=== PATIENT | male | born 1955 | race Caucasian/White ===

== ENCOUNTER 2020-03-06 15:20 | Inpatient (IN) | payer MEDICARE ==
[~2020-03-06] VITALS: Ht 172.7 cm; Wt 58.0 kg
[2020-03-06] MEDS ORDERED: METOCLOPRAMIDE HCL 10 MG/2 ML VIAL. IVP ONE (17:00)
[2020-03-06] MEDS ORDERED: IV NORMAL SALINE 1000ML BAG 1,000 ML IV ONE (17:00)
[2020-03-06] MEDS ORDERED: KETOROLAC 30 MG/ML VIAL. IVP ONE (17:00)
[2020-03-06] MEDS ORDERED: METOCLOPRAMIDE HCL 10 MG/2 ML VIAL. ONE (17:05)
[2020-03-06] MEDS ORDERED: KETOROLAC 30 MG/ML VIAL. ONE (17:05)
[2020-03-06 17:07] LABS: BASO # 0.1 x10^3/uL (0.0-0.2); BASO % 1 % (0-3); EOS # 0.1 x10^3/uL (0.0-0.7); EOS % 1 % (0-3); HEMATOCRIT 44.9 % (39.0-53.0); HEMOGLOBIN 15.6 g/dL (13.0-17.5); LYMPH # 1.9 x10^3/uL (1.0-4.8); LYMPH % 17 % (24-48); MEAN CORPUSCULAR HEMOGLOBIN 29 pg (25-35); MEAN CORPUSCULAR HGB CONC 35 g/dL (31-37); MEAN CORPUSCULAR VOLUME 84 fL (79-100); MONO # 0.7 x10^3/uL (0.0-1.1); MONO % 6 % (0-9); NEUT # 8.2 x10^3/uL (1.8-7.7); NEUT % 75 % (31-73); PLATELET COUNT 369 x10^3/uL (140-400); RED BLOOD COUNT 5.33 x10^6/uL (4.30-5.70); RED CELL DISTRIBUTION WIDTH 14.9 % (11.5-14.5); WHITE BLOOD COUNT 10.9 x10^3/uL (4.0-11.0)
[2020-03-06 17:13] LABS: CALCIUM 10.1 mg/dL (8.5-10.1); CREATININE 1.1 mg/dL (0.7-1.3); GFR 67.8; POTASSIUM 3.7 mmol/L (3.5-5.1)
--- NOTE | 2020-03-06 17:16 | PHYS DOC ---
Past Medical History Past Medical History: Anxiety, Depression, Other Additional Past Medical Histor: PTSD, chronic back and leg pain, spinal stenosis (NAUN FAULKNER DO) Past Surgical History: Other Additional Past Surgical Histo: bone graft, leg surgery (NAUN FAULKNER DO) Smoking Status: Current Every Day Smoker Additional Information: 1 ppd Alcohol Use: None (NAUN FAULKNER DO) General Adult EDM: Chief Complaint: FLANK PAIN HPI: HPI: 64-year-old male past medical history significant for anxiety depression, recently discharged from [facility] (for anxiety/depression), presents to the ED with complaints of dysuria and right flank pain for the past 2 days. Patient states he has a history of frequent UTIs. Also reports has been out of his methadone for the past 3 days if he does not get anything for pain he'd "rather ." (NAUN FAULKNER DO) Review of Systems: Review of Systems: Constitutional: Denies fever or chills. [] Eyes: Denies change in visual acuity. [] HENT: Denies nasal congestion or sore throat. [] Respiratory: Denies cough or shortness of breath. [] Cardiovascular: Denies chest pain or edema. [] GI: Denies abdominal pain, nausea, vomiting, : Denies rash, hematuria Musculoskeletal: Denies joint pain. [] Integument: Denies rash. [] Neurologic: Denies headache, focal weakness or sensory changes. [] Endocrine: Denies polyuria or polydipsia. [] Lymphatic: Denies swollen glands. [] Psychiatric: Denies depression or anxiety. [] (NAUN FAULKNER DO) Heart Score: Risk Factors: Risk Factors: DM, Current or recent (<one month) smoker, HTN, HLP, family history of CAD, obesity. Risk Scores: Score 0 - 3: 2.5% MACE over next 6 weeks - Discharge Home Score 4 - 6: 20.3% MACE over next 6 weeks - Admit for Clinical Observation Score 7 - 10: 72.7% MACE over next 6 weeks - Early Invasive Strategies (NAUN FAULKNER DO) Current Medications: Current Medications Medications (Trade) Dose Ordered Sig/Arabella Start Time Stop Time Status Last Admin Dose Admin Ketorolac Tromethamine (Toradol 30mg Vial) 30 mg STK-MED ONCE 03/06/20 17:05 03/06/20 17:05 DC Metoclopramide HCl (Reglan Vial) 10 mg STK-MED ONCE 03/06/20 17:05 03/06/20 17:05 DC Sodium Chloride 1,000 ml @ 1,000 mls/hr 1X ONCE 03/06/20 17:00 03/06/20 17:59 03/06/20 17:07 1,000 MLS/HR (CHAUNCEYNAUN DO) Allergies: Allergies: Allergies Coded Allergies Type Severity Reaction Last Updated Verified Penicillins Allergy Severe "I think I " 03/06/20 Yes Sulfa (Sulfonamide Antibiotics) Allergy Severe "I think I " 03/06/20 Yes (NAUN FAULKNER DO) Physical Exam: PE: Constitutional: Unkempt appearance, pacing in ED room holding his right flank HENT: Normocephalic, atraumatic, bilateral external ears normal, Eyes: EOMI, conjunctiva normal, no discharge. [] Neck: Normal range of motion, no tenderness, supple, no stridor. [] Cardiovascular:Heart rate regular rhythm, no murmur [] Lungs & Thorax: Bilateral breath sounds clear to auscultation [] Abdomen: Bowel sounds normal, soft, no tenderness, no masses, no pulsatile masses. [] Skin: Warm, dry, no erythema, no rash. [] Back: No tenderness, +right CVA tenderness. [] Extremities: No tenderness, no cyanosis, no clubbing, ROM intact, no edema. [] Neurologic: Alert and oriented X 3, normal motor function, normal sensory function, no focal deficits noted. [] Psychologic: Affect normal, judgement normal, mood normal. [] (CHAUNCEYNAUN DO) Current Patient Data: Vital Signs: Vital Signs Date Time Temp Pulse Resp B/P (MAP) Pulse Ox O2 Delivery O2 Flow Rate FiO2 03/06/20 15:53 99.2 114 28 164/107 (126) 97 Room Air 99.2 (NAUN FAULKNER DO) EKG: EKG: [] (NAUN FAULKNER DO) Radiology/Procedures: Radiology/Procedures: [] (CHAUNCEYNAUN DO) Course & Med Decision Making: Course & Med Decision Making Pertinent Labs and Imaging studies reviewed. (See chart for details) Concern for right flank pain, dysuria and suicidal ideations. Labs/imaging pending. Psych team has been called. In ed pt became agitated and made SI threats if he did not recieve any analgesia. Pt required sedation for his safety and medical evaluation. Pt was signed out at shift change to Dr. Mcconnell. (NAUN FAULKNER DO) Course & Med Decision Making I have received signout on the patient's emergency department care from Dr. Faulkner. We discussed the history, physical exam findings, completed and pending laboratory results and imaging studies. We have also discussed the current treatment plan and expected clinical course. Please refer to further update notes for additional information regarding the patient's final diagnosis and disposition. In brief patient is a 64-year-old male who presents with chief complaint of low back pain. Initial vital signs unremarkable. Patient did initially make threats to the first provider that he would harm himself if his pain was not adequately treated. He was placed on a medical hold. Given concerns for kellie pement from emergency department with suicidal risk patient did require chemical sedation. CT imaging does reveal lumbar disc disease with some foraminal narrowing. On my examination he has no neurologic deficits indicating a surgical emergency. Psychiatric assessment team did evaluate the patient at bedside. They do overall have low concern for the patient's suicidal risk lord kristofer they state that outpatient services will likely not take him given his current sedation. They do think given his methadone usage and behavioral issues that he would benefit from inpatient consultation by our psychiatrist. Patient's pain was well controlled in the emergency department. Signout has been given the hospitalist. (PACO MCCONNELL DO) Trinaon Disclaimer: Soren Disclaimer: This electronic medical record was generated, in whole or in part, using a voice recognition dictation system. (NAUN FAULKNER DO) Departure Departure Impression: Primary Impression: Intractable back pain Additional Impressions: Degenerative disc disease, lumbar Suicidal behavior Qualified Codes: R45.89 - Other symptoms and signs involving emotional state Disposition: ADMITTED INPATIENT Referrals: PAT TO MD (PCP) Justicifation of Admission Dx: Justifications for Admission: Justification of Admission Dx: Yes Comments: intractable back pain, advanced degenerative disc disease in the lumbar region, suicidal thoughts (PACO MCCONNELL DO) NAUN FAULKNER DO Mar 06, 2020 17:15 PACO MCCONNELL DO Mar 06, 2020 19:08
[2020-03-06 17:20] LABS: BILIRUBIN,URINE SMALL (NEG); CLARITY,URINE TURBID; COLOR,URINE AMBER; NITRITE,URINE NEGATIVE (NEG); PROTEIN,URINE 30 mg/dL (NEG-TRACE)
[2020-03-06 17:21] LABS: ALBUMIN 4.2 g/dL (3.4-5.0); ALBUMIN/GLOBULIN RATIO 0.9 (1.0-1.7); TOTAL BILIRUBIN 0.5 mg/dL (0.2-1.0)
[2020-03-06 17:26] LABS: BARBITURATES NEG (NEG); BENZODIAZEPINES NEG (NEG); CANNABINOIDS NEG (NEG); COCAINE NEG (NEG); METHADONE POS (NEG); OPIATES NEG (NEG); PHENCYCLIDINE NEG (NEG)
[2020-03-06 17:28] LABS: AMPHETAMINE/METHAMPHETAMINE NEG (NEG)
[2020-03-06 17:30] LABS: AMORPHOUS SEDIMENT,UR PRESENT /HPF; BACTERIA,URINE 0 /HPF (0-FEW); HYALINE CASTS, URINE FEW /HPF; RBC,URINE 0 /HPF (0-2)
[2020-03-06] MEDS ORDERED: HALOPERIDOL LACTATE 5 MG/ML VIAL. ONE (17:32)
[2020-03-06] MEDS ORDERED: fentaNYL PF VIAL 100 MCG/2 ML VIAL IVP ONE (17:45)
[2020-03-06] MEDS ORDERED: diphenhydrAMINE 50 MG/ML VIAL IVP ONE (17:45)
[2020-03-06] MEDS ORDERED: HALOPERIDOL 5 MG TABLET. PO PRN (17:45)
[2020-03-06] MEDS ORDERED: HALOPERIDOL LACTATE 5 MG/ML VIAL. IVP ONE ×2 (18:00)
--- NOTE | 2020-03-06 18:39 | RAD ---
CT Abdomen and Pelvis without contrast History: Right flank pain Technique: Noncontrast CT imaging was performed of the abdomen and pelvis. Multiplanar images are reviewed. Exposure: One or more of the following individualized dose reduction techniques were utilized for this examination: 1. Automated exposure control 2. Adjustment of the mA and/or kV according to patient size 3. Use of iterative reconstruction technique. Comparison: None Findings: There is motion degradation, also artifact created by patient's arms near sides. No urolithiasis or hydronephrosis is identified. There is emphysema of the visualized lung bases is also some dependent density of the lung parenchyma bilaterally to the lung bases bilaterally. There is some wall thickening of the visualized distal esophagus and small sliding hiatal hernia. There is coronary calcification.Accurate evaluation of abdominal visceral organs is limited without intravenous contrast. There is no obvious abnormality of the spleen, liver, or pancreas. There is no adrenal nodularity. Accurate evaluation of bowel is limited without oral contrast. There is no significant free air, free fluid, bowel dilatation. Normal caliber appendix is believed to be visualized, no significant inflammatory type change about the bowel. There is multilevel advanced lumbar degenerative disc disease throughout the lumbar spine. There is moderate to severe lumbar dextroscoliosis. There is multilevel lumbar facet degenerative change. There is mild right lateral subluxation L4 relative L5 and L3 relative L4, mild left lateral subluxation of T12 relative L1. There is multilevel variable lateral recess stenosis of the lumbar spine. There is also multilevel lumbar neural foramina compromise greatest on the right at L4-5 and L5-S1 and on the left at L1-L2 through L5-S1. There is old inferior thoracic neural foramina compromise due to facet degenerative change greatest on the right at T11-12, T10-11, and T9-10. There is atherosclerotic calcification of the abdominal aorta. There are some prostate calcifications. There is relative increased density in the urinary bladder lumen. Impression: 1. There is no hydronephrosis or convincing urolithiasis. 2. There is multilevel advanced lumbar degenerative disc disease. There is moderate to severe lumbar dextroscoliosis. There is variable multilevel lateral recess stenosis and neural foramina compromise. 3. There is wall thickening of the visualized distal esophagus, could be due to esophagitis, cannot accurately exclude underlying mass. There is small hiatal hernia. 4. There is some coronary calcification. There is dependent density of the visualized lung bases bilaterally which may be atelectasis although edema not excluded. 5. There is relative increased density in the urinary bladder lumen, cannot exclude more complex or proteinaceous fluid, less likely hemorrhage. Urinary bladder is poorly evaluated on this exam. Electronically signed by: Felipe Marin MD (03/06/2020 6:36 PM) [facility]
[2020-03-06] MEDS ORDERED: methylPREDNISolone 4 MG TABLET. PO ONE (19:30)
[2020-03-06 20:50] VITALS: BP 141/80
[2020-03-06] MEDS ORDERED: ONDANSETRON PF 4 MG/2 ML VIAL. IV PRN (21:15)
[2020-03-06] MEDS ORDERED: ONDANSETRON PF 4 MG/2 ML VIAL. IVP PRN (22:00)
[2020-03-06] MEDS: OLANZapine IM 10 MG VIAL. IM PRN (22:13)
[2020-03-06] MEDS: IV NORMAL SALINE 1000ML BAG 1,000 ML IV SCH (22:41)
[2020-03-06] MEDS: HALOPERIDOL LACTATE 5 MG/ML VIAL. IVP PRN (22:55)
[2020-03-06 23:00] VITALS: BP 97/63
--- NOTE | 2020-03-06 23:32 | NUR ---
pt arrived to unit room 410 @ 2000. agitated and non compliant, unsteady when out of bed, Dr Ngo called for admit orders, PRN meds given and constant observation done for safety, prn meds and other nursing interventions done to assure safety but still agitaed and very high risks of falling., Dr ngo ordered 1:! obs for patient's safety,
[2020-03-07 07:00] VITALS: BP 122/71
[2020-03-07] MEDS: IV NORMAL SALINE 1000ML BAG 1,000 ML IV SCH ×2 (08:45→18:45)
[2020-03-07 09:02] LABS: BASO % 0 % (0-3); EOS # 0.1 x10^3/uL (0.0-0.7); EOS % 1 % (0-3); HEMATOCRIT 38.2 % (39.0-53.0); HEMOGLOBIN 12.6 g/dL (13.0-17.5); LYMPH # 1.2 x10^3/uL (1.0-4.8); LYMPH % 21 % (24-48); MEAN CORPUSCULAR HEMOGLOBIN 28 pg (25-35); MEAN CORPUSCULAR HGB CONC 33 g/dL (31-37); MEAN CORPUSCULAR VOLUME 85 fL (79-100); MONO # 0.4 x10^3/uL (0.0-1.1); MONO % 7 % (0-9); NEUT # 3.8 x10^3/uL (1.8-7.7); NEUT % 71 % (31-73); PLATELET COUNT 267 x10^3/uL (140-400); RED BLOOD COUNT 4.52 x10^6/uL (4.30-5.70); WHITE BLOOD COUNT 5.4 x10^3/uL (4.0-11.0)
--- NOTE | 2020-03-07 09:03 | HP ---
ADMIT DATE: 03/06/2020 CHIEF COMPLAINT: Flank pain. HISTORY OF PRESENT ILLNESS: The patient is a pleasant 64-year-old male well known to my service. He is actually on high dose methadone. 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 Basically now he presents with abdominal pain. We are concerned he could have kidney stone. We tried to scan him in the ER, but he could not sit still. Then he explained to the nurses that he was suicidal. He got a little agitated. We had to call security. Now we have given some Ativan and Haldol in the ER, he is calming down. We are going to admit the patient. PAST MEDICAL HISTORY: Anxiety, depression, PTSD, chronic pain, narcotic dependence. I suspect he may have done heroin in the past, but I am not clear on that. Bone graft, left liver surgery, current tobacco abuse. ALLERGIES: PENICILLIN AND SULFA. FAMILY HISTORY: Coronary disease. SOCIAL HISTORY: He smokes and drinks. No drugs other than methadone currently. MEDICATIONS: Reviewed, please refer to the MRAD. REVIEW OF SYSTEMS: GENERAL: No history of weight change, weakness or fevers. SKIN: No bruising, hair changes or rashes. EYES: No blurred, double or loss of vision. NOSE AND THROAT: No history of nosebleeds, hoarseness or sore throat. HEART: No history of palpitations, chest pain or shortness of breath on exertion. LUNGS: Denies cough, hemoptysis, wheezing or shortness of breath. GASTROINTESTINAL: He complains of abdominal pain. GENITOURINARY: No history of frequency, urgency, hesitancy or nocturia. NEUROLOGIC: Denies history of numbness, tingling, tremor or weakness. PSYCHIATRIC: He complains of suicidal ideation. ENDOCRINE: No history of heat or cold intolerance, polyuria or polydipsia. EXTREMITIES: Denies muscle weakness, joint pain, pain on walking or stiffness. PHYSICAL EXAMINATION: VITALS: Within normal limits and are stable. GENERAL: He is agitated at times. He is calming down after the Ativan and the Haldol. HEENT: Normal cephalic atraumatic, external auditory canals are patent EYES: Extraocular muscles are intact, pupils are equally round and reactive to light and accommodation MUSCULOSKELETAL: Well developed, well nourished, good range of motion ENDOCRINE: No thyromegaly was palpated LYMPHATICS: No cervical chain or axillary nodes were noted HEMATOPOIETIC: No bruising NECK: Supple, no JVD, no thyromegaly was noted. LUNGS: Clear to auscultation in all lung arita without rhonchi or wheezing. HEART: RRR, S1, S2 present. Peripheral pulses intact, no obvious murmurs were noted. ABDOMEN: Soft, nontender. Positive bowel sounds no organomegaly, normal bowel sounds. EXTREMITIES: Without any cyanosis, clubbing, or edema. Pedal pulses intact, Homans sign is negative. NEUROLOGIC: He is alert and oriented, but slow to answer questions at times. PSYCHIATRIC: He is depressed and anxious. SKIN: No ulcerations or rashes, good skin turgor, no jaundice. VASCULAR: Good capillary refill, neurovascular bundle appears to be intact. ASSESSMENT AND PLAN: Back pain, abdominal pain, possible kidney stone, suicidal ideation, chronic pain. The patient has been admitted. We will consult psychiatric assessment team. Resume his home meds. Trend labs. Suspect he might need inpatient psych. DARIUS DIGGS DO DR: NATALY/farzaneh JOB#: [id number] / [id number]
[2020-03-07 09:08] LABS: CALCIUM 9.1 mg/dL (8.5-10.1); CREATININE 0.9 mg/dL (0.7-1.3); GFR 85.5; POTASSIUM 4.1 mmol/L (3.5-5.1)
--- NOTE | 2020-03-07 09:38 | NUR ---
SW following. Discussed with RN, pt on 1:1, zena palacios called for trying to fight staff. Pt possibly has not taken his methadone for a while. PAT consulted, Soy will come to see pt. Pt has been to inpatient psych in the past. SW will continue to follow.
--- NOTE | 2020-03-07 10:09 | PDOC ---
[employer] PROGRESS NOTE Date of Service DOS: DATE: 03/07/20 TIME: 09:51 Chief Complaint Chief Complaint Flank pain History of Present Illness History of Present Illness 03/07/2020 Patient seen and examined Patient resting with NAD Discussed with RN Chart reviewed Tox screen was positive for methadone Continue PRN sedatives 1:1 observation Await Psych Discharge disposition pending Patient was complaining of abdominal pain, kidney stone and demonstrated suicidal ideation Vitals/I&O Vitals/I&O: Vital Signs Date Time Temp Pulse Resp B/P (MAP) Pulse Ox O2 Delivery O2 Flow Rate FiO2 03/07/20 07:00 98.3 59 17 122/71 (88) 93 Room Air 98.3 I & O 03/06/20 03/06/20 03/07/20 15:00 23:00 07:00 Intake Total 1000 ml 500 ml Balance 1000 ml 500 ml Physical Exam General: No acute distress Heart: Regular rate Lungs: Clear Abdomen: Other (flank pain) Extremities: No cyanosis Skin: No rashes Labs Labs: Laboratory Tests Test 03/06/20 16:50 03/06/20 17:00 03/07/20 08:37 White Blood Count 10.9 x10^3/uL (4.0-11.0) 5.4 x10^3/uL (4.0-11.0) Red Blood Count 5.33 x10^6/uL (4.30-5.70) 4.52 x10^6/uL (4.30-5.70) Hemoglobin 15.6 g/dL (13.0-17.5) 12.6 g/dL (13.0-17.5) Hematocrit 44.9 % (39.0-53.0) 38.2 % (39.0-53.0) Mean Corpuscular Volume 84 fL (79-100) 85 fL (79-100) Mean Corpuscular Hemoglobin 29 pg (25-35) 28 pg (25-35) Mean Corpuscular Hemoglobin Concent 35 g/dL (31-37) 33 g/dL (31-37) Red Cell Distribution Width 14.9 % (11.5-14.5) 15.0 % (11.5-14.5) Platelet Count 369 x10^3/uL (140-400) 267 x10^3/uL (140-400) Neutrophils (%) (Auto) 75 % (31-73) 71 % (31-73) Lymphocytes (%) (Auto) 17 % (24-48) 21 % (24-48) Monocytes (%) (Auto) 6 % (0-9) 7 % (0-9) Eosinophils (%) (Auto) 1 % (0-3) 1 % (0-3) Basophils (%) (Auto) 1 % (0-3) 0 % (0-3) Neutrophils # (Auto) 8.2 x10^3/uL (1.8-7.7) 3.8 x10^3/uL (1.8-7.7) Lymphocytes # (Auto) 1.9 x10^3/uL (1.0-4.8) 1.2 x10^3/uL (1.0-4.8) Monocytes # (Auto) 0.7 x10^3/uL (0.0-1.1) 0.4 x10^3/uL (0.0-1.1) Eosinophils # (Auto) 0.1 x10^3/uL (0.0-0.7) 0.1 x10^3/uL (0.0-0.7) Basophils # (Auto) 0.1 x10^3/uL (0.0-0.2) 0.0 x10^3/uL (0.0-0.2) Sodium Level 140 mmol/L (136-145) 139 mmol/L (136-145) Potassium Level 3.7 mmol/L (3.5-5.1) 4.1 mmol/L (3.5-5.1) Chloride Level 100 mmol/L (98-107) 102 mmol/L (98-107) Carbon Dioxide Level 26 mmol/L (21-32) 30 mmol/L (21-32) Anion Gap 14 (6-14) 7 (6-14) Blood Urea Nitrogen 19 mg/dL (8-26) 23 mg/dL (8-26) Creatinine 1.1 mg/dL (0.7-1.3) 0.9 mg/dL (0.7-1.3) Estimated GFR (Cockcroft-Gault) 67.8 85.5 BUN/Creatinine Ratio 17 (6-20) Glucose Level 125 mg/dL (70-99) 133 mg/dL (70-99) Calcium Level 10.1 mg/dL (8.5-10.1) 9.1 mg/dL (8.5-10.1) Total Bilirubin 0.5 mg/dL (0.2-1.0) Aspartate Amino Transf (AST/SGOT) 15 U/L (15-37) Alanine Aminotransferase (ALT/SGPT) 18 U/L (16-63) Alkaline Phosphatase 110 U/L (46-116) Total Protein 9.0 g/dL (6.4-8.2) Albumin 4.2 g/dL (3.4-5.0) Albumin/Globulin Ratio 0.9 (1.0-1.7) Ethyl Alcohol Level < 10 mg/dL (0-10) Urine Collection Type Unknown Urine Color Danita Urine Clarity Turbid Urine pH 5.0 (<5.0-8.0) Urine Specific [place] 1.025 (1.000-1.030) Urine Protein 30 mg/dL (NEG-TRACE) Urine Glucose (UA) Negative mg/dL (NEG) Urine Ketones (Stick) Trace mg/dL (NEG) Urine Blood Trace (NEG) Urine Nitrite Negative (NEG) Urine Bilirubin Small (NEG) Urine Urobilinogen Dipstick 1.0 mg/dL (0.2 mg/dL) Urine Leukocyte Esterase Small (NEG) Urine RBC 0 /HPF (0-2) Urine WBC 5-10 /HPF (0-4) Urine Amorphous Sediment Present /HPF Urine Bacteria 0 /HPF (0-FEW) Urine Hyaline Casts Few /HPF Urine Mucus Marked /LPF Urine Opiates Screen Neg (NEG) Urine Methadone Screen Pos (NEG) Urine Barbiturates Neg (NEG) Urine Phencyclidine Screen Neg (NEG) Urine Amphetamine/Methamphetamine Neg (NEG) Urine Benzodiazepines Screen Neg (NEG) Urine Cocaine Screen Neg (NEG) Urine Cannabinoids Screen Neg (NEG) Urine Ethyl Alcohol Neg (NEG) Assessment and Plan Assessmemt and Plan Problems Medical Problems: (1) Degenerative disc disease, lumbar Status: Acute (2) Intractable back pain Status: Acute (3) Suicidal behavior Status: Acute Assessment Back pain Abdominal pain Possible kidney stone Suicidal ideation Chronic pain DJD lumbar Plan Continue PRN sedatives 1:1 observation Use mitts for safety Tox screen was positive for methadone Home meds DVT prophylaxis Trend labs Await psych consult Discharge disposition pending Comment Review of Relevant I have reviewed the following items laura (where applicable) has been applied. Medications: Current Medications Medications (Trade) Dose Ordered Sig/Arabella Route PRN Reason Start Time Stop Time Status Last Admin Dose Admin Ketorolac Tromethamine (Toradol 30mg Vial) 30 mg 1X ONCE IVP 03/06/20 17:00 03/06/20 17:04 DC 03/06/20 17:07 Metoclopramide HCl (Reglan Vial) 10 mg 1X ONCE IVP 03/06/20 17:00 03/06/20 17:04 DC 03/06/20 17:07 Sodium Chloride 1,000 ml @ 1,000 mls/hr 1X ONCE IV 03/06/20 17:00 03/06/20 17:59 DC 03/06/20 17:07 Lorazepam (Ativan Inj) 2 mg 1X ONCE IVP 03/06/20 17:45 03/06/20 17:48 DC 03/06/20 17:51 Fentanyl Citrate (Fentanyl 2ml Vial) 50 mcg 1X ONCE IVP 03/06/20 17:45 03/06/20 17:48 DC 03/06/20 17:53 Lorazepam (Ativan Inj) 2 mg 1X ONCE IVP 03/06/20 18:00 03/06/20 18:01 DC 03/06/20 17:52 Haloperidol Lactate (Haldol Inj) 5 mg 1X ONCE IVP 03/06/20 18:00 03/06/20 18:01 DC 03/06/20 17:55 Methylprednisolone (Medrol) 32 mg 1X ONCE PO 03/06/20 19:30 03/06/20 19:31 DC 03/06/20 20:46 Lorazepam (Ativan Inj) 4 mg PRN Q2HRS PRN IVP ANXIETY / AGITATION 03/06/20 22:00 03/07/20 00:21 Haloperidol Lactate (Haldol Inj) 5 mg PRN Q6HRS PRN IVP AGITATION 03/06/20 22:00 03/06/20 22:55 Olanzapine (ZyPREXA IM) 10 mg PRN Q8HRS PRN IM agitation 03/06/20 22:00 03/06/20 22:13 Sodium Chloride 1,000 ml @ 100 mls/hr Q10H IV 03/06/20 22:45 03/06/20 22:41 DARIUS DIGGS III DO Mar 07, 2020 10:09
[2020-03-07 11:00] VITALS: BP 121/67
[2020-03-07 15:00] VITALS: BP 105/68
[2020-03-07 19:00] VITALS: BP 119/67
--- NOTE | 2020-03-07 19:00 | NUR ---
Pt. belongings in green bag in med room include: developmental therapist, keys, clothes, phone
[2020-03-07] MEDS ORDERED: DICYCLOMINE HCL 10 MG CAPSULE PO PRN (19:30)
[2020-03-07] MEDS: HALOPERIDOL LACTATE 5 MG/ML VIAL. IVP PRN (19:43)
[2020-03-07 23:00] VITALS: BP 100/65
[2020-03-08 03:00] VITALS: BP 108/63
[2020-03-08] MEDS: oxyCODONE/APAP 5/325 1 TAB TABLET PO PRN ×3 (04:37→21:11)
[2020-03-08] MEDS: IV NORMAL SALINE 1000ML BAG 1,000 ML IV SCH ×2 (04:45→14:45)
--- NOTE | 2020-03-08 05:10 | NUR ---
Pt. states he came into hospital with a [employer] watch. RN asked admitting nurse and she stated he did not have anything on his wrists or in his belongings. RN checked his belongings earlier and pt. did not have anything in bag or in walker basket.
[2020-03-08 06:03] LABS: BASO % 0 % (0-3); EOS # 0.3 x10^3/uL (0.0-0.7); EOS % 4 % (0-3); HEMATOCRIT 39.2 % (39.0-53.0); HEMOGLOBIN 13.2 g/dL (13.0-17.5); LYMPH # 1.9 x10^3/uL (1.0-4.8); LYMPH % 26 % (24-48); MEAN CORPUSCULAR HEMOGLOBIN 28 pg (25-35); MEAN CORPUSCULAR HGB CONC 34 g/dL (31-37); MEAN CORPUSCULAR VOLUME 84 fL (79-100); MONO # 0.4 x10^3/uL (0.0-1.1); MONO % 6 % (0-9); NEUT # 4.6 x10^3/uL (1.8-7.7); NEUT % 64 % (31-73); PLATELET COUNT 250 x10^3/uL (140-400); RED BLOOD COUNT 4.67 x10^6/uL (4.30-5.70); RED CELL DISTRIBUTION WIDTH 15.1 % (11.5-14.5); WHITE BLOOD COUNT 7.2 x10^3/uL (4.0-11.0)
[2020-03-08 06:55] LABS: ALBUMIN/GLOBULIN RATIO 0.8 (1.0-1.7); CALCIUM 8.6 mg/dL (8.5-10.1); CREATININE 0.9 mg/dL (0.7-1.3); GFR 85.5; POTASSIUM 3.8 mmol/L (3.5-5.1); TOTAL BILIRUBIN 0.5 mg/dL (0.2-1.0); TOTAL PROTEIN 6.6 g/dL (6.4-8.2)
[2020-03-08 07:29] VITALS: BP 139/93
--- NOTE | 2020-03-08 08:41 | PDOC ---
PROGRESS NOTES Date of Service: DATE: 03/08/20 TIME: 08:41 Chief Complaint Chief Complaint impression ======= Flank pain wall thickening of the visualized distal esophagus, could be due to esophagitis, cannot accurately exclude underlying mass. There is small hiatal hernia. MAJOR DEPRESSION WITH SI Tobacco abuse NO MICROHEMATURIA plan consult psych gi consult PT/OT Consult dr lazaro 38 min pt exam, chart review, > 50% of time spent with exam, chart review, pt care coordination 64-year-old male well on high dose methadone FOR BACK PAIN . 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 presents with abdominal pain. We are concerned he could have kidney stone. We tried to scan him in the ER, but he could not sit still. Then he explained to the nurses that he was suicidal. He got a little agitated. We had to call security. Now we have given some Ativan and Haldol in the ER, he is calm NOW admit the patient. PAST MEDICAL HISTORY: Anxiety, depression, PTSD, chronic pain, narcotic dependence. I suspect he may have done heroin in the past, but I am not clear on that. Bone graft, left liver surgery, current tobacco abuse. ALLERGIES: PENICILLIN AND SULFA. FAMILY HISTORY: Coronary disease. SOCIAL HISTORY: He smokes and drinks. No drugs other than methadone currently. History of Present Illness History of Present Illness 03/08/2020 Patient seen and examined WALKING IN [place] WITH pt NAD Discussed with RN Chart reviewed Tox screen was positive for methadone Continue PRN sedatives 1:1 observation Await Psych Discharge disposition pending PAT CONSULT D/W RN Patient was complaining of abdominal pain, kidney stone and demonstrated suicidal ideation Vitals Vitals Vital Signs Date Time Temp Pulse Resp B/P (MAP) Pulse Ox O2 Delivery O2 Flow Rate FiO2 03/08/20 07:29 98.0 87 16 139/93 (108) Room Air 98.0 98.0 03/08/20 03:00 95 Physical Exam Physical Exam walking in [place] with walker General: Alert, Oriented X3, Cooperative, No acute distress Heart: Regular rate Lungs: Clear Abdomen: Other (flank pain) Extremities: No clubbing, No cyanosis, No edema Skin: No rashes Labs LABS CT Abdomen and Pelvis without contrast History: Right flank pain Technique: Noncontrast CT imaging was performed of the abdomen and pelvis. Multiplanar images are reviewed. Exposure: One or more of the following individualized dose reduction techniques were utilized for this examination: 1. Automated exposure control 2. Adjustment of the mA and/or kV according to patient size 3. Use of iterative reconstruction technique. Comparison: None Findings: There is motion degradation, also artifact created by patient's arms near sides. No urolithiasis or hydronephrosis is identified. There is emphysema of the visualized lung bases is also some dependent density of the lung parenchyma bilaterally to the lung bases bilaterally. There is some wall thickening of the visualized distal esophagus and small sliding hiatal hernia. There is coronary calcification.Accurate evaluation of abdominal visceral organs is limited without intravenous contrast. There is no obvious abnormality of the spleen, liver, or pancreas. There is no adrenal nodularity. Accurate evaluation of bowel is limited without oral contrast. There is no significant free air, free fluid, bowel dilatation. Normal caliber appendix is believed to be visualized, no significant inflammatory type change about the bowel. There is multilevel advanced lumbar degenerative disc disease throughout the lumbar spine. There is moderate to severe lumbar dextroscoliosis. There is multilevel lumbar facet degenerative change. There is mild right lateral subluxation L4 relative L5 and L3 relative L4, mild left lateral subluxation of T12 relative L1. There is multilevel variable lateral recess stenosis of the lumbar spine. There is also multilevel lumbar neural foramina compromise greatest on the right at L4-5 and L5-S1 and on the left at L1-L2 through L5-S1. There is old inferior thoracic neural foramina compromise due to facet degenerative change greatest on the right at T11-12, T10-11, and T9-10. There is atherosclerotic calcification of the abdominal aorta. There are some prostate calcifications. There is relative increased density in the urinary bladder lumen. Impression: 1. There is no hydronephrosis or convincing urolithiasis. 2. There is multilevel advanced lumbar degenerative disc disease. There is moderate to severe lumbar dextroscoliosis. There is variable multilevel lateral recess stenosis and neural foramina compromise. 3. There is wall thickening of the visualized distal esophagus, could be due to esophagitis, cannot accurately exclude underlying mass. There is small hiatal hernia. 4. There is some coronary calcification. There is dependent density of the visualized lung bases bilaterally which may be atelectasis although edema not excluded. 5. There is relative increased density in the urinary bladder lumen, cannot exclude more complex or proteinaceous fluid, less likely hemorrhage. Urinary bladder is poorly evaluated on this exam. Electronically signed by: Carmella Dunlap MD (03/06/2020 6:36 PM) [facility] DICTATED and SIGNED BY: CARMELLA DUNLAP MD DATE: 03/06/20 1836 Laboratory Tests Test 03/08/20 04:15 White Blood Count 7.2 x10^3/uL (4.0-11.0) Red Blood Count 4.67 x10^6/uL (4.30-5.70) Hemoglobin 13.2 g/dL (13.0-17.5) Hematocrit 39.2 % (39.0-53.0) Mean Corpuscular Volume 84 fL (79-100) Mean Corpuscular Hemoglobin 28 pg (25-35) Mean Corpuscular Hemoglobin Concent 34 g/dL (31-37) Red Cell Distribution Width 15.1 % (11.5-14.5) Platelet Count 250 x10^3/uL (140-400) Neutrophils (%) (Auto) 64 % (31-73) Lymphocytes (%) (Auto) 26 % (24-48) Monocytes (%) (Auto) 6 % (0-9) Eosinophils (%) (Auto) 4 % (0-3) Basophils (%) (Auto) 0 % (0-3) Neutrophils # (Auto) 4.6 x10^3/uL (1.8-7.7) Lymphocytes # (Auto) 1.9 x10^3/uL (1.0-4.8) Monocytes # (Auto) 0.4 x10^3/uL (0.0-1.1) Eosinophils # (Auto) 0.3 x10^3/uL (0.0-0.7) Basophils # (Auto) 0.0 x10^3/uL (0.0-0.2) Sodium Level 141 mmol/L (136-145) Potassium Level 3.8 mmol/L (3.5-5.1) Chloride Level 103 mmol/L (98-107) Carbon Dioxide Level 28 mmol/L (21-32) Anion Gap 10 (6-14) Blood Urea Nitrogen 25 mg/dL (8-26) Creatinine 0.9 mg/dL (0.7-1.3) Estimated GFR (Cockcroft-Gault) 85.5 BUN/Creatinine Ratio 28 (6-20) Glucose Level 82 mg/dL (70-99) Calcium Level 8.6 mg/dL (8.5-10.1) Total Bilirubin 0.5 mg/dL (0.2-1.0) Aspartate Amino Transf (AST/SGOT) 37 U/L (15-37) Alanine Aminotransferase (ALT/SGPT) 23 U/L (16-63) Alkaline Phosphatase 80 U/L (46-116) Total Protein 6.6 g/dL (6.4-8.2) Albumin 3.0 g/dL (3.4-5.0) Albumin/Globulin Ratio 0.8 (1.0-1.7) Assessment and Plan Assessmemt and Plan Problems Medical Problems: (1) Degenerative disc disease, lumbar Status: Acute (2) Intractable back pain Status: Acute (3) Suicidal behavior Status: Acute SW following. Discussed with RN, pt still on 1:1, starting to get antsy and thre atening again. PAT team unable to see pt all day yesterday because pt was too out of it. Requested Soy come as soon as possible this morning before pt is given the medication. Soy agreed. SW will continue to follow. Comment Review of Relevant I have reviewed the following items laura (where applicable) has been applied. Labs Laboratory Tests Test 03/06/20 16:50 03/06/20 17:00 03/07/20 08:37 03/08/20 04:15 White Blood Count 10.9 x10^3/uL (4.0-11.0) 5.4 x10^3/uL (4.0-11.0) 7.2 x10^3/uL (4.0-11.0) Red Blood Count 5.33 x10^6/uL (4.30-5.70) 4.52 x10^6/uL (4.30-5.70) 4.67 x10^6/uL (4.30-5.70) Hemoglobin 15.6 g/dL (13.0-17.5) 12.6 g/dL (13.0-17.5) 13.2 g/dL (13.0-17.5) Hematocrit 44.9 % (39.0-53.0) 38.2 % (39.0-53.0) 39.2 % (39.0-53.0) Mean Corpuscular Volume 84 fL (79-100) 85 fL (79-100) 84 fL (79-100) Mean Corpuscular Hemoglobin 29 pg (25-35) 28 pg (25-35) 28 pg (25-35) Mean Corpuscular Hemoglobin Concent 35 g/dL (31-37) 33 g/dL (31-37) 34 g/dL (31-37) Red Cell Distribution Width 14.9 % (11.5-14.5) 15.0 % (11.5-14.5) 15.1 % (11.5-14.5) Platelet Count 369 x10^3/uL (140-400) 267 x10^3/uL (140-400) 250 x10^3/uL (140-400) Neutrophils (%) (Auto) 75 % (31-73) 71 % (31-73) 64 % (31-73) Lymphocytes (%) (Auto) 17 % (24-48) 21 % (24-48) 26 % (24-48) Monocytes (%) (Auto) 6 % (0-9) 7 % (0-9) 6 % (0-9) Eosinophils (%) (Auto) 1 % (0-3) 1 % (0-3) 4 % (0-3) Basophils (%) (Auto) 1 % (0-3) 0 % (0-3) 0 % (0-3) Neutrophils # (Auto) 8.2 x10^3/uL (1.8-7.7) 3.8 x10^3/uL (1.8-7.7) 4.6 x10^3/uL (1.8-7.7) Lymphocytes # (Auto) 1.9 x10^3/uL (1.0-4.8) 1.2 x10^3/uL (1.0-4.8) 1.9 x10^3/uL (1.0-4.8) Monocytes # (Auto) 0.7 x10^3/uL (0.0-1.1) 0.4 x10^3/uL (0.0-1.1) 0.4 x10^3/uL (0.0-1.1) Eosinophils # (Auto) 0.1 x10^3/uL (0.0-0.7) 0.1 x10^3/uL (0.0-0.7) 0.3 x10^3/uL (0.0-0.7) Basophils # (Auto) 0.1 x10^3/uL (0.0-0.2) 0.0 x10^3/uL (0.0-0.2) 0.0 x10^3/uL (0.0-0.2) Sodium Level 140 mmol/L (136-145) 139 mmol/L (136-145) 141 mmol/L (136-145) Potassium Level 3.7 mmol/L (3.5-5.1) 4.1 mmol/L (3.5-5.1) 3.8 mmol/L (3.5-5.1) Chloride Level 100 mmol/L (98-107) 102 mmol/L (98-107) 103 mmol/L (98-107) Carbon Dioxide Level 26 mmol/L (21-32) 30 mmol/L (21-32) 28 mmol/L (21-32) Anion Gap 14 (6-14) 7 (6-14) 10 (6-14) Blood Urea Nitrogen 19 mg/dL (8-26) 23 mg/dL (8-26) 25 mg/dL (8-26) Creatinine 1.1 mg/dL (0.7-1.3) 0.9 mg/dL (0.7-1.3) 0.9 mg/dL (0.7-1.3) Estimated GFR (Cockcroft-Gault) 67.8 85.5 85.5 BUN/Creatinine Ratio 17 (6-20) 28 (6-20) Glucose Level 125 mg/dL (70-99) 133 mg/dL (70-99) 82 mg/dL (70-99) Calcium Level 10.1 mg/dL (8.5-10.1) 9.1 mg/dL (8.5-10.1) 8.6 mg/dL (8.5-10.1) Total Bilirubin 0.5 mg/dL (0.2-1.0) 0.5 mg/dL (0.2-1.0) Aspartate Amino Transf (AST/SGOT) 15 U/L (15-37) 37 U/L (15-37) Alanine Aminotransferase (ALT/SGPT) 18 U/L (16-63) 23 U/L (16-63) Alkaline Phosphatase 110 U/L (46-116) 80 U/L (46-116) Total Protein 9.0 g/dL (6.4-8.2) 6.6 g/dL (6.4-8.2) Albumin 4.2 g/dL (3.4-5.0) 3.0 g/dL (3.4-5.0) Albumin/Globulin Ratio 0.9 (1.0-1.7) 0.8 (1.0-1.7) Ethyl Alcohol Level < 10 mg/dL (0-10) Urine Collection Type Unknown Urine Color Danita Urine Clarity Turbid Urine pH 5.0 (<5.0-8.0) Urine Specific [place] 1.025 (1.000-1.030) Urine Protein 30 mg/dL (NEG-TRACE) Urine Glucose (UA) Negative mg/dL (NEG) Urine Ketones (Stick) Trace mg/dL (NEG) Urine Blood Trace (NEG) Urine Nitrite Negative (NEG) Urine Bilirubin Small (NEG) Urine Urobilinogen Dipstick 1.0 mg/dL (0.2 mg/dL) Urine Leukocyte Esterase Small (NEG) Urine RBC 0 /HPF (0-2) Urine WBC 5-10 /HPF (0-4) Urine Amorphous Sediment Present /HPF Urine Bacteria 0 /HPF (0-FEW) Urine Hyaline Casts Few /HPF Urine Mucus Marked /LPF Urine Opiates Screen Neg (NEG) Urine Methadone Screen Pos (NEG) Urine Barbiturates Neg (NEG) Urine Phencyclidine Screen Neg (NEG) Urine Amphetamine/Methamphetamine Neg (NEG) Urine Benzodiazepines Screen Neg (NEG) Urine Cocaine Screen Neg (NEG) Urine Cannabinoids Screen Neg (NEG) Urine Ethyl Alcohol Neg (NEG) Laboratory Tests Test 03/08/20 04:15 White Blood Count 7.2 x10^3/uL (4.0-11.0) Red Blood Count 4.67 x10^6/uL (4.30-5.70) Hemoglobin 13.2 g/dL (13.0-17.5) Hematocrit 39.2 % (39.0-53.0) Mean Corpuscular Volume 84 fL (79-100) Mean Corpuscular Hemoglobin 28 pg (25-35) Mean Corpuscular Hemoglobin Concent 34 g/dL (31-37) Red Cell Distribution Width 15.1 % (11.5-14.5) Platelet Count 250 x10^3/uL (140-400) Neutrophils (%) (Auto) 64 % (31-73) Lymphocytes (%) (Auto) 26 % (24-48) Monocytes (%) (Auto) 6 % (0-9) Eosinophils (%) (Auto) 4 % (0-3) Basophils (%) (Auto) 0 % (0-3) Neutrophils # (Auto) 4.6 x10^3/uL (1.8-7.7) Lymphocytes # (Auto) 1.9 x10^3/uL (1.0-4.8) Monocytes # (Auto) 0.4 x10^3/uL (0.0-1.1) Eosinophils # (Auto) 0.3 x10^3/uL (0.0-0.7) Basophils # (Auto) 0.0 x10^3/uL (0.0-0.2) Sodium Level 141 mmol/L (136-145) Potassium Level 3.8 mmol/L (3.5-5.1) Chloride Level 103 mmol/L (98-107) Carbon Dioxide Level 28 mmol/L (21-32) Anion Gap 10 (6-14) Blood Urea Nitrogen 25 mg/dL (8-26) Creatinine 0.9 mg/dL (0.7-1.3) Estimated GFR (Cockcroft-Gault) 85.5 BUN/Creatinine Ratio 28 (6-20) Glucose Level 82 mg/dL (70-99) Calcium Level 8.6 mg/dL (8.5-10.1) Total Bilirubin 0.5 mg/dL (0.2-1.0) Aspartate Amino Transf (AST/SGOT) 37 U/L (15-37) Alanine Aminotransferase (ALT/SGPT) 23 U/L (16-63) Alkaline Phosphatase 80 U/L (46-116) Total Protein 6.6 g/dL (6.4-8.2) Albumin 3.0 g/dL (3.4-5.0) Albumin/Globulin Ratio 0.8 (1.0-1.7) Medications Current Medications Ketorolac Tromethamine (Toradol 30mg Vial) 30 mg 1X ONCE IVP Last administered on 03/06/20at 17:07; Start 03/06/20 at 17:00; Stop 03/06/20 at 17:04; Status DC Metoclopramide HCl (Reglan Vial) 10 mg 1X ONCE IVP Last administered on 03/06/20at 17:07; Start 03/06/20 at 17:00; Stop 03/06/20 at 17:04; Status DC Sodium Chloride 1,000 ml @ 1,000 mls/hr 1X ONCE IV Last administered on 03/06/20at 17:07; Start 03/06/20 at 17:00; Stop 03/06/20 at 17:59; Status DC Metoclopramide HCl (Reglan Vial) 10 mg STK-MED ONCE .ROUTE ; Start 03/06/20 at 17:05; Stop 03/06/20 at 17:05; Status DC Ketorolac Tromethamine (Toradol 30mg Vial) 30 mg STK-MED ONCE .ROUTE ; Start 03/06/20 at 17:05; Stop 03/06/20 at 17:05; Status DC Haloperidol Lactate (Haldol Inj) 5 mg STK-MED ONCE .ROUTE ; Start 03/06/20 at 17:32; Stop 03/06/20 at 17:32; Status DC Lorazepam (Ativan Inj) 2 mg STK-MED ONCE .ROUTE ; Start 03/06/20 at 17:34; Stop 03/06/20 at 17:35; Status DC Diphenhydramine HCl (Benadryl) 50 mg 1X ONCE IVP ; Start 03/06/20 at 17:45; Stop 03/06/20 at 17:46; Status DC Haloperidol (Haldol) 5 mg 1X PRN PO AGITATION; Start 03/06/20 at 17:45; Status Cancel Lorazepam (Ativan Inj) 2 mg 1X ONCE IVP Last administered on 03/06/20at 17:51; Start 03/06/20 at 17:45; Stop 03/06/20 at 17:48; Status DC Fentanyl Citrate (Fentanyl 2ml Vial) 50 mcg 1X ONCE IVP Last administered on 03/06/20at 17:53; Start 03/06/20 at 17:45; Stop 03/06/20 at 17:48; Status DC Lorazepam (Ativan Inj) 2 mg 1X ONCE IVP Last administered on 03/06/20at 17:52; Start 03/06/20 at 18:00; Stop 03/06/20 at 18:01; Status DC Haloperidol Lactate (Haldol Inj) 5 mg 1X ONCE IVP ; Start 03/06/20 at 18:00; Stop 03/06/20 at 17:56; Status DC Haloperidol Lactate (Haldol Inj) 5 mg 1X ONCE IVP Last administered on 03/06/20at 17:55; Start 03/06/20 at 18:00; Stop 03/06/20 at 18:01; Status DC Methylprednisolone (Medrol) 32 mg 1X ONCE PO Last administered on 03/06/20at 20:46; Start 03/06/20 at 19:30; Stop 03/06/20 at 19:31; Status DC Ondansetron HCl (Zofran) 4 mg PRN Q8HRS PRN IV NAUSEA/VOMITING; Start 03/06/20 at 21:15; Stop 03/07/20 at 21:14; Status DC Lorazepam (Ativan Inj) 4 mg PRN Q2HRS PRN IVP ANXIETY / AGITATION Last administered on 03/08/20at 05:03; Start 03/06/20 at 22:00 Haloperidol Lactate (Haldol Inj) 5 mg PRN Q6HRS PRN IVP AGITATION Last administered on 03/07/20at 19:43; Start 03/06/20 at 22:00 Ondansetron HCl (Zofran) 4 mg PRN Q6HRS PRN IVP NAUSEA/VOMITING; Start 03/06/20 at 22:00 Olanzapine (ZyPREXA IM) 10 mg PRN Q8HRS PRN IM agitation Last administered on 03/06/20at 22:13; Start 03/06/20 at 22:00 Sodium Chloride 1,000 ml @ 100 mls/hr Q10H IV Last administered on 03/06/20at 22:41; Start 03/06/20 at 22:45 Dicyclomine HCl (Bentyl) 10 mg PRN QID PRN PO ABDOMINAL PAIN Last administered on 03/07/20at 19:43; Start 03/07/20 at 19:30 Cyclobenzaprine HCl (Flexeril) 10 mg PRN TID PRN PO MUSCLE SPASMS; Start 03/07/20 at 20:00 Oxycodone/ Acetaminophen (Percocet 5/325) 1 tab PRN Q6HRS PRN PO PAIN Last administered on 03/08/20at 04:37; Start 03/07/20 at 20:00 Vitals/I & O Vital Sign - Last 24 Hours 03/07/20 03/07/20 03/07/20 03/07/20 11:00 15:00 19:00 20:00 Temp 98.4 98.1 97.9 98.4 98.1 97.9 Pulse 59 65 67 Resp 17 17 18 B/P (MAP) 121/67 (85) 105/68 (80) 119/67 (84) Pulse Ox 94 96 94 O2 Delivery Room Air Room Air Room Air Room Air 03/07/20 03/07/20 03/08/20 03/08/20 20:00 23:00 03:00 04:37 Temp 98.0 98.1 98.0 98.1 Pulse 60 65 Resp 18 18 B/P (MAP) 100/65 (77) 108/63 (78) Pulse Ox 97 95 O2 Delivery Room Air Room Air Room Air Room Air 03/08/20 03/08/20 05:37 07:29 Temp 98.0 98.0 Pulse 87 Resp 16 B/P (MAP) 139/93 (108) O2 Delivery Room Air Room Air O2 Flow Rate 98.0 Intake and Output 03/07/20 03/07/20 03/08/20 15:00 23:00 07:00 Intake Total 40 ml Balance 40 ml Justicifation of Admission Dx: Justifications for Admission: Justification of Admission Dx: Yes ROSA MARIA ULLOA MD Mar 08, 2020 08:41
[2020-03-08] MEDS: NICOTINE 21MG PATCH. TD SCH ×2 (09:00→11:35)
[2020-03-08] MEDS: NICOTINE POLACRILEX 2MG GUM PACKAGE of 12. BC PRN (09:19)
--- NOTE | 2020-03-08 09:36 | NUR ---
DARLEEN following. Discussed with RN, pt still on 1:1, starting to get antsy and threatening again. PAT team unable to see pt all day yesterday because pt was too out of it. Requested Soy come as soon as possible this morning before pt is given the medication. Soy agreed. DARLEEN will continue to follow. Addendum: 03/08/20 at 1214 by SHEMAR MOREJON Soy met with pt, pt is still SI with no plan. Waiting on COVID result before being able to seen psych placement referral - COVID swab not done in the ER. DARLEEN will continue to follow.
--- NOTE | 2020-03-08 10:18 | NUR ---
assumed care at this time. he is 1:1; up walking with his walker frequently. PAT team here.
[2020-03-08] MEDS: PANTOPRAZOLE 40 MG TABLET.DR. PO SCH (11:35)
--- NOTE | 2020-03-08 11:58 | PDOC2 ---
GI CONSULT Date of Service: DATE: 03/08/20 TIME: 11:56 Reason For Consult: esophagitis vs esophageal mass HPI: HPI: 64 y/o male admitted a few days ago w/ back pacin, UTI, and anxiety. CT noted wall thickening in distal esophagus and we are asked to see for this. H/o GERD previously on Zantac. Not sure why stopped. Currently no dysphagia, n/v, abd pain, diarrhea, constipation, or bleeding. Thinks had EGD and colonoscopy in the past - later said done 1.5 years ago in [place]. Describes some difficulty swallowing around the time of EGD w/ some abn ormality in esophagus - details unclear - maybe reflux? No GB, liver, pancreas, or PUD history. Nurse reports some confusion yesterday, requiring 1:1 observation today. No GI concerns. PMH: PMH: anxiety, depression, PTSD, chronic pain, GERD bone graft, right leg surgery ROS: GEN: Denies fevers, chills, sweats HEENT: Denies blurred vision, sore throat CV: Denies chest pain RESP: Denies shortness of air, cough GI: Per HPI : Denies hematuria, dysuria ENDO: Denies weight changes NEURO: Denies confusion, dizziness MSK: back pain SKIN: Denies jaundice, pruritus Vitals: Vitals: Vital Signs Date Time Temp Pulse Resp B/P (MAP) Pulse Ox O2 Delivery O2 Flow Rate FiO2 03/08/20 10:11 Room Air 03/08/20 07:29 98.0 87 16 139/93 (108) 98.0 98.0 03/08/20 03:00 95 Labs: Labs: Laboratory Tests Test 03/08/20 04:15 03/08/20 10:45 White Blood Count 7.2 x10^3/uL (4.0-11.0) Red Blood Count 4.67 x10^6/uL (4.30-5.70) Hemoglobin 13.2 g/dL (13.0-17.5) Hematocrit 39.2 % (39.0-53.0) Mean Corpuscular Volume 84 fL (79-100) Mean Corpuscular Hemoglobin 28 pg (25-35) Mean Corpuscular Hemoglobin Concent 34 g/dL (31-37) Red Cell Distribution Width 15.1 % (11.5-14.5) Platelet Count 250 x10^3/uL (140-400) Neutrophils (%) (Auto) 64 % (31-73) Lymphocytes (%) (Auto) 26 % (24-48) Monocytes (%) (Auto) 6 % (0-9) Eosinophils (%) (Auto) 4 % (0-3) Basophils (%) (Auto) 0 % (0-3) Neutrophils # (Auto) 4.6 x10^3/uL (1.8-7.7) Lymphocytes # (Auto) 1.9 x10^3/uL (1.0-4.8) Monocytes # (Auto) 0.4 x10^3/uL (0.0-1.1) Eosinophils # (Auto) 0.3 x10^3/uL (0.0-0.7) Basophils # (Auto) 0.0 x10^3/uL (0.0-0.2) Sodium Level 141 mmol/L (136-145) Potassium Level 3.8 mmol/L (3.5-5.1) Chloride Level 103 mmol/L (98-107) Carbon Dioxide Level 28 mmol/L (21-32) Anion Gap 10 (6-14) Blood Urea Nitrogen 25 mg/dL (8-26) Creatinine 0.9 mg/dL (0.7-1.3) Estimated GFR (Cockcroft-Gault) 85.5 BUN/Creatinine Ratio 28 (6-20) Glucose Level 82 mg/dL (70-99) Calcium Level 8.6 mg/dL (8.5-10.1) Total Bilirubin 0.5 mg/dL (0.2-1.0) Aspartate Amino Transf (AST/SGOT) 37 U/L (15-37) Alanine Aminotransferase (ALT/SGPT) 23 U/L (16-63) Alkaline Phosphatase 80 U/L (46-116) Total Protein 6.6 g/dL (6.4-8.2) Albumin 3.0 g/dL (3.4-5.0) Albumin/Globulin Ratio 0.8 (1.0-1.7) SARS-CoV-2 Antigen (Rapid) Negative (NEGATIVE) Allergies: Coded Allergies: Penicillins (Verified Allergy, Severe, "I think I ", 03/06/20) Sulfa (Sulfonamide Antibiotics) (Verified Allergy, Severe, "I think I " , 03/06/20) Medications: Current Medications Medications (Trade) Dose Ordered Sig/Arabella Route PRN Reason Start Time Stop Time Status Last Admin Dose Admin Dicyclomine HCl (Bentyl) 10 mg PRN QID PRN PO ABDOMINAL PAIN 03/07/20 19:30 03/07/20 19:43 Oxycodone/ Acetaminophen (Percocet 5/325) 1 tab PRN Q6HRS PRN PO PAIN 03/07/20 20:00 03/08/20 04:37 Nicotine (Nicoderm Cq 21mg) 1 patch DAILY TD 03/08/20 09:00 03/08/20 11:35 Nicotine Polacrilex (Nicorette Gum) 1 each PRN Q1HR PRN BC SMOKING CESSATION 03/08/20 09:00 03/08/20 09:19 Pantoprazole Sodium (Protonix) 40 mg DAILYAC PO 03/08/20 10:15 03/08/20 11:35 Imaging: Imaging: CT A/P Impression: 1. There is no hydronephrosis or convincing urolithiasis. 2. There is multilevel advanced lumbar degenerative disc disease. There is moderate to severe lumbar dextroscoliosis. There is variable multilevel lateral recess stenosis and neural foramina compromise. 3. There is wall thickening of the visualized distal esophagus, could be due to esophagitis, cannot accurately exclude underlying mass. There is small hiatal hernia. 4. There is some coronary calcification. There is dependent density of the visualized lung bases bilaterally which may be atelectasis although edema not excluded. 5. There is relative increased density in the urinary bladder lumen, cannot exclude more complex or proteinaceous fluid, less likely hemorrhage. Urinary bladder is poorly evaluated on this exam. PE: GEN: chronically ill - stands hunched over w/ walker - eats sandwich throughout the interview HEENT: Atraumatic, PERRL LUNGS: CTAB HEART: RRR ABD: NABS, S/ND/NT EXTREMITY: No edema SKIN: No rashes, no jaundice NEURO/PSYCH: A & O 3 A/P: A/P: Chronic pain on methadone UTI (E Coli) GERD - reports recent EGD CRC screen - UTD -- Agree w/ PPI for h/o GERD. Denies dysphagia and odynophagia currently. ANA RODRIGUEZ Mar 08, 2020 11:58
[2020-03-08 12:01] VITALS: BP 129/82
--- NOTE | 2020-03-08 13:44 | CONS ---
DATE OF CONSULTATION: 03/08/2020 ATTENDING PHYSICIAN: Marck Rios III, DO REASON FOR CONSULTATION: The patient was seen at the request of Dr. Neri for rehab evaluation. HISTORY OF PRESENT ILLNESS: This is a 64-year-old male with chronic lower back pain, admitted on 03/06/2020 with flank pain. The patient is on high dose of methadone for his chronic pain. 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 The patient complains of abdominal pain and concerned about kidney stone. He could not stand still for scanning in the Emergency Room. He got a little bit agitated. I had to call security. He was given Ativan and Haldol, which calmed him down. The patient with known anxiety, depression, posttraumatic stress disorder, chronic pain, narcotic dependence, bone graft, left liver surgery, current tobacco abuse, KNOWN ALLERGIC TO PENICILLIN AND SULFA, family history of coronary artery disease. He smokes and drinks. The patient, since admission, had CT scan of the abdomen and pelvis, which revealed no convincing hydronephrosis or urolithiasis. Multilevel advanced lumbar degenerative disk disease with [id number] lumbar dextroscoliosis, multilevel lateral recess stenosis and neural foraminal compromise, wall thickening of the visualized distal esophagus could be due to esophagitis, could not exclude underlying mass with a small hiatal hernia, some coronary calcifications, questionable atelectasis or edema in the bases, relatively increased density in the urinary bladder lumen. The patient admits some difficulty with emptying his bladder. He denies any incontinence, but admits frequency of urine, small amounts and he denies any dysuria. PHYSICAL EXAMINATION: The patient on physical examination today revealed a middle-aged male. He is alert, cooperative during the examination. He moves all 4 extremities voluntarily where he had 4+/5 grade muscle strength. Deep tendon reflexes are brisk at left knee, absent at right knee and both ankles. He had equal perception of touch and pinprick sensation bilaterally. He had mild crepitus on range of motion of both knee joints without any obvious knee joint effusion and he had painful range of motion of both hip joints. Straight leg raising test is negative bilaterally. He had tenderness to palpation over right lower thoracic and lumbar paraspinal muscles and he had painful limited movements of his lumbar spine. The patient has been walking with bent-over posture using a roller walker under nurse's supervision. ASSESSMENT: A middle-aged male with known anxiety, depression and posttraumatic stress disorder, chronic lower back pain from degenerative disk disease and degenerative joint disease of lumbar vertebrae without any clinical evidence of ongoing lumbar radiculopathy, degenerative joint disease of both knees without any significant pain, clinical evidence of peripheral neuropathy in a patient with known chronic tobacco and alcohol use. RECOMMENDATIONS: Agree with the plan for physical therapy and occupational therapy to try him with a lumbar corset, to consider injecting painful right lumbar paraspinal muscles if the pain persists, so also try him with a lumbar corset. Dr. Neri, I appreciate asking me to participate in the care of this interesting patient. I will be glad to follow him with you as needed for the rehabilitation. MAGALY BOWMAN MD DR: ERIKA/farzaneh JOB#: [id number] / [id number]
[2020-03-08 15:22] VITALS: BP 152/98
--- NOTE | 2020-03-08 16:22 | EKG ---
[facility] [address] [place] [address] Test Date: 2020-03-08 Test Time: 16:15:52 Pat Name: GUADALUPE LACY Department: Room: 404 Gender: M Sports Development Officer: DEBBIE : 1955 Requested By: ROSA MARIA ULLOA Order Number: [id number] Reading MD: Measurements Intervals Edwards Rate: 97 P: -52 LA: 138 QRS: 81 QRSD: 82 T: 57 QT: 354 QTc: 454 Interpretive Statements SINUS RHYTHM LOW LIMB LEAD VOLTAGE QRS(T) CONTOUR ABNORMALITY CONSIDER ANTEROSEPTAL MYOCARDIAL DAMAGE POSSIBLY ABNORMAL ECG RI6.02 No previous ECG available for comparison
--- NOTE | 2020-03-08 16:49 | PDOC1 ---
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 Upon interview he appears cooperative and interactive. Nursing staff reported that patient is walking around the hallway with the help of walker. When seen he appears cooperative and alert. He states, his suicidal thoughts correlates with his pain. If pain is severe he has more suicidal thoughts however he never had any serious intent. Never attempted suicide. Previously. He does have history of depression, anxiety, mood instability and PTSD. States, depression and anxiety were reasonably under control until the pain arrived. Aside from that, endorsing history of PTSD which is reportedly stable at this point. Denies homicidal ideation. Denies auditory or visual hallucinations. Depression is slightly raised because of pain and current condition. Anxiety is related to pain as well. Past Psychiatric History: He has history of psychiatric hospital admission. Last admission was in [facility]. Denies history of previous suicidal attempt. Past Medical History: Please see medical chart for details. Current Medications: Current Medications Current Medications Medications (Trade) Dose Ordered Sig/Arabella Start Time Stop Time Status Last Admin Dose Admin Cyclobenzaprine HCl (Flexeril) 10 mg PRN TID PRN 03/07/20 20:00 Dicyclomine HCl (Bentyl) 10 mg PRN QID PRN 03/07/20 19:30 03/07/20 19:43 10 MG Diphenhydramine HCl (Benadryl) 50 mg 1X ONCE 03/06/20 17:45 03/06/20 17:46 DC Fentanyl Citrate (Fentanyl 2ml Vial) 50 mcg 1X ONCE 03/06/20 17:45 03/06/20 17:48 DC 03/06/20 17:53 50 MCG Haloperidol (Haldol) 5 mg 1X PRN 03/06/20 17:45 Cancel Haloperidol Lactate (Haldol Inj) 5 mg PRN Q6HRS PRN 03/06/20 22:00 03/07/20 19:43 5 MG Ketorolac Tromethamine (Toradol 30mg Vial) 30 mg STK-MED ONCE 03/06/20 17:05 03/06/20 17:05 DC Lidocaine (Lidoderm) 1 patch DAILY 03/09/20 09:00 Lorazepam (Ativan Inj) 4 mg PRN Q2HRS PRN 03/06/20 22:00 03/08/20 16:21 4 MG Methylprednisolone (Medrol) 32 mg 1X ONCE 03/06/20 19:30 03/06/20 19:31 DC 03/06/20 20:46 32 MG Metoclopramide HCl (Reglan Vial) 10 mg STK-MED ONCE 03/06/20 17:05 03/06/20 17:05 DC Miscellaneous (Lidoderm Patch Removal) 1 ea QHS 03/08/20 21:00 Nicotine (Nicoderm Cq 21mg) 1 patch DAILY 03/08/20 09:00 03/08/20 11:35 1 PATCH Nicotine Polacrilex (Nicorette Gum) 1 each PRN Q1HR PRN 03/08/20 09:00 03/08/20 09:19 1 EACH Nitrofurantoin Macrocrystals (Macrobid) 100 mg BID 03/08/20 21:00 Olanzapine (ZyPREXA IM) 10 mg PRN Q8HRS PRN 03/06/20 22:00 03/06/20 22:13 10 MG Ondansetron HCl (Zofran) 4 mg PRN Q6HRS PRN 03/06/20 22:00 03/08/20 16:23 4 MG Oxycodone/ Acetaminophen (Percocet 5/325) 1 tab PRN Q6HRS PRN 03/07/20 20:00 03/08/20 14:21 1 TAB Pantoprazole Sodium (Protonix) 40 mg DAILYAC 03/08/20 10:15 03/08/20 11:35 40 MG Sodium Chloride 1,000 ml @ 100 mls/hr Q10H 03/06/20 22:45 03/06/20 22:41 100 MLS/HR Allergies: Allergies: Coded Allergies: Penicillins (Verified Allergy, Severe, "I think I ", 03/06/20) Sulfa (Sulfonamide Antibiotics) (Verified Allergy, Severe, "I think I ", 03/06/20) Mental Status Examination: Mental Status Examination gentleman appears older than his stated age Cooperative but distracted Oriented Denies suicidal or homicidal thoughts presently. Denies auditory or visual hallucinations No abnormal perception noted Mood is dysphoric Affect is dysthymic Insight and judgment impulse control are fair Attention span and concentration fair Recent and remote memory intact. ROS: 14 point review of system is otherwise negative except for as stated above Physical Exam: Refer to Physician's note. EEO OFFICER: No focal deficit MSK: No EPS, TDK, or abnormal involuntary movements Vitals: Vitals Vital Signs Date Time Temp Pulse Resp B/P (MAP) Pulse Ox O2 Delivery O2 Flow Rate FiO2 03/08/20 15:22 97.2 92 16 152/98 (116) Room Air 99.0 97.2 03/08/20 12:01 99 Labs: Labs Laboratory Tests Test 03/06/20 16:50 03/06/20 17:00 03/07/20 08:37 03/08/20 04:15 White Blood Count 10.9 x10^3/uL (4.0-11.0) 5.4 x10^3/uL (4.0-11.0) 7.2 x10^3/uL (4.0-11.0) Red Blood Count 5.33 x10^6/uL (4.30-5.70) 4.52 x10^6/uL (4.30-5.70) 4.67 x10^6/uL (4.30-5.70) Hemoglobin 15.6 g/dL (13.0-17.5) 12.6 g/dL (13.0-17.5) 13.2 g/dL (13.0-17.5) Hematocrit 44.9 % (39.0-53.0) 38.2 % (39.0-53.0) 39.2 % (39.0-53.0) Mean Corpuscular Volume 84 fL (79-100) 85 fL (79-100) 84 fL (79-100) Mean Corpuscular Hemoglobin 29 pg (25-35) 28 pg (25-35) 28 pg (25-35) Mean Corpuscular Hemoglobin Concent 35 g/dL (31-37) 33 g/dL (31-37) 34 g/dL (31-37) Red Cell Distribution Width 14.9 % (11.5-14.5) 15.0 % (11.5-14.5) 15.1 % (11.5-14.5) Platelet Count 369 x10^3/uL (140-400) 267 x10^3/uL (140-400) 250 x10^3/uL (140-400) Neutrophils (%) (Auto) 75 % (31-73) 71 % (31-73) 64 % (31-73) Lymphocytes (%) (Auto) 17 % (24-48) 21 % (24-48) 26 % (24-48) Monocytes (%) (Auto) 6 % (0-9) 7 % (0-9) 6 % (0-9) Eosinophils (%) (Auto) 1 % (0-3) 1 % (0-3) 4 % (0-3) Basophils (%) (Auto) 1 % (0-3) 0 % (0-3) 0 % (0-3) Neutrophils # (Auto) 8.2 x10^3/uL (1.8-7.7) 3.8 x10^3/uL (1.8-7.7) 4.6 x10^3/uL (1.8-7.7) Lymphocytes # (Auto) 1.9 x10^3/uL (1.0-4.8) 1.2 x10^3/uL (1.0-4.8) 1.9 x10^3/uL (1.0-4.8) Monocytes # (Auto) 0.7 x10^3/uL (0.0-1.1) 0.4 x10^3/uL (0.0-1.1) 0.4 x10^3/uL (0.0-1.1) Eosinophils # (Auto) 0.1 x10^3/uL (0.0-0.7) 0.1 x10^3/uL (0.0-0.7) 0.3 x10^3/uL (0.0-0.7) Basophils # (Auto) 0.1 x10^3/uL (0.0-0.2) 0.0 x10^3/uL (0.0-0.2) 0.0 x10^3/uL (0.0-0.2) Sodium Level 140 mmol/L (136-145) 139 mmol/L (136-145) 141 mmol/L (136-145) Potassium Level 3.7 mmol/L (3.5-5.1) 4.1 mmol/L (3.5-5.1) 3.8 mmol/L (3.5-5.1) Chloride Level 100 mmol/L (98-107) 102 mmol/L (98-107) 103 mmol/L (98-107) Carbon Dioxide Level 26 mmol/L (21-32) 30 mmol/L (21-32) 28 mmol/L (21-32) Anion Gap 14 (6-14) 7 (6-14) 10 (6-14) Blood Urea Nitrogen 19 mg/dL (8-26) 23 mg/dL (8-26) 25 mg/dL (8-26) Creatinine 1.1 mg/dL (0.7-1.3) 0.9 mg/dL (0.7-1.3) 0.9 mg/dL (0.7-1.3) Estimated GFR (Cockcroft-Gault) 67.8 85.5 85.5 BUN/Creatinine Ratio 17 (6-20) 28 (6-20) Glucose Level 125 mg/dL (70-99) 133 mg/dL (70-99) 82 mg/dL (70-99) Calcium Level 10.1 mg/dL (8.5-10.1) 9.1 mg/dL (8.5-10.1) 8.6 mg/dL (8.5-10.1) Total Bilirubin 0.5 mg/dL (0.2-1.0) 0.5 mg/dL (0.2-1.0) Aspartate Amino Transf (AST/SGOT) 15 U/L (15-37) 37 U/L (15-37) Alanine Aminotransferase (ALT/SGPT) 18 U/L (16-63) 23 U/L (16-63) Alkaline Phosphatase 110 U/L (46-116) 80 U/L (46-116) Total Protein 9.0 g/dL (6.4-8.2) 6.6 g/dL (6.4-8.2) Albumin 4.2 g/dL (3.4-5.0) 3.0 g/dL (3.4-5.0) Albumin/Globulin Ratio 0.9 (1.0-1.7) 0.8 (1.0-1.7) Ethyl Alcohol Level < 10 mg/dL (0-10) Urine Collection Type Unknown Urine Color Danita Urine Clarity Turbid Urine pH 5.0 (<5.0-8.0) Urine Specific [place] 1.025 (1.000-1.030) Urine Protein 30 mg/dL (NEG-TRACE) Urine Glucose (UA) Negative mg/dL (NEG) Urine Ketones (Stick) Trace mg/dL (NEG) Urine Blood Trace (NEG) Urine Nitrite Negative (NEG) Urine Bilirubin Small (NEG) Urine Urobilinogen Dipstick 1.0 mg/dL (0.2 mg/dL) Urine Leukocyte Esterase Small (NEG) Urine RBC 0 /HPF (0-2) Urine WBC 5-10 /HPF (0-4) Urine Amorphous Sediment Present /HPF Urine Bacteria 0 /HPF (0-FEW) Urine Hyaline Casts Few /HPF Urine Mucus Marked /LPF Urine Opiates Screen Neg (NEG) Urine Methadone Screen Pos (NEG) Urine Barbiturates Neg (NEG) Urine Phencyclidine Screen Neg (NEG) Urine Amphetamine/Methamphetamine Neg (NEG) Urine Benzodiazepines Screen Neg (NEG) Urine Cocaine Screen Neg (NEG) Urine Cannabinoids Screen Neg (NEG) Urine Ethyl Alcohol Neg (NEG) Test 03/08/20 10:45 SARS-CoV-2 Antigen (Rapid) Negative (NEGATIVE) Laboratory Tests Test 03/08/20 04:15 03/08/20 10:45 White Blood Count 7.2 x10^3/uL (4.0-11.0) Red Blood Count 4.67 x10^6/uL (4.30-5.70) Hemoglobin 13.2 g/dL (13.0-17.5) Hematocrit 39.2 % (39.0-53.0) Mean Corpuscular Volume 84 fL (79-100) Mean Corpuscular Hemoglobin 28 pg (25-35) Mean Corpuscular Hemoglobin Concent 34 g/dL (31-37) Red Cell Distribution Width 15.1 % (11.5-14.5) Platelet Count 250 x10^3/uL (140-400) Neutrophils (%) (Auto) 64 % (31-73) Lymphocytes (%) (Auto) 26 % (24-48) Monocytes (%) (Auto) 6 % (0-9) Eosinophils (%) (Auto) 4 % (0-3) Basophils (%) (Auto) 0 % (0-3) Neutrophils # (Auto) 4.6 x10^3/uL (1.8-7.7) Lymphocytes # (Auto) 1.9 x10^3/uL (1.0-4.8) Monocytes # (Auto) 0.4 x10^3/uL (0.0-1.1) Eosinophils # (Auto) 0.3 x10^3/uL (0.0-0.7) Basophils # (Auto) 0.0 x10^3/uL (0.0-0.2) Sodium Level 141 mmol/L (136-145) Potassium Level 3.8 mmol/L (3.5-5.1) Chloride Level 103 mmol/L (98-107) Carbon Dioxide Level 28 mmol/L (21-32) Anion Gap 10 (6-14) Blood Urea Nitrogen 25 mg/dL (8-26) Creatinine 0.9 mg/dL (0.7-1.3) Estimated GFR (Cockcroft-Gault) 85.5 BUN/Creatinine Ratio 28 (6-20) Glucose Level 82 mg/dL (70-99) Calcium Level 8.6 mg/dL (8.5-10.1) Total Bilirubin 0.5 mg/dL (0.2-1.0) Aspartate Amino Transf (AST/SGOT) 37 U/L (15-37) Alanine Aminotransferase (ALT/SGPT) 23 U/L (16-63) Alkaline Phosphatase 80 U/L (46-116) Total Protein 6.6 g/dL (6.4-8.2) Albumin 3.0 g/dL (3.4-5.0) Albumin/Globulin Ratio 0.8 (1.0-1.7) SARS-CoV-2 Antigen (Rapid) Negative (NEGATIVE) Diagnosis: Diagnosis: Major depressive disorder, recurrent, severe without psychotic features. Generalized anxiety disorder. PTSD. Opioid use disorder, recurrent on methadone maintenance Assessment: He is a well-educated gentleman with history of multiple psychiatric comorbidities who was on methadone treatment admitted with intractable back pain and suicidality. His suicidality likely correlates with his pain severity. Adamantly denies any suicidal thoughts when not in pain. However, he is no intentions to . Intent is reportedly 0/10. Plan: Continue hospitalization for safety and crisis stabilization. Psychoeducation provided. Supportive psychotherapy provided. Continue outpatient medications including psychotropics as is. Risk, benefits, alternatives of the treatment are discussed. Adverse drug reaction of the medications are also discussed. CHRISTO MENSAH MD Mar 08, 2020 16:49
[2020-03-08 18:31] VITALS: BP 125/78
--- NOTE | 2020-03-08 19:16 | NUR ---
Wisam has been ambulating frequently along with 1:1 sitter. sitter states that he has gotten more confused as the day progressed and has expressed suicidal ideation. . saline lock restarted in the right inner forearm. previous saline lock dcd. he was given ativan 4mg and zofran x 1 for my shift. no noticeable effect. continued to ambulate around the nurse's station Addendum: 03/08/20 at 1920 by DAVID SOLOMON RN remains on 1:1,
[2020-03-08] MEDS: PATCH REMOVAL. MC SCH (21:00)
[2020-03-08] MEDS: NITROFURANTOIN MONOHYD/M-CRYST 100 MG CAPSULE. PO SCH (21:00)
[2020-03-08] MEDS: CYCLOBENZAPRINE 10 MG TABLET. PO PRN (21:11)
[2020-03-08 23:00] VITALS: BP 143/90
[2020-03-09] MEDS: IV NORMAL SALINE 1000ML BAG 1,000 ML IV SCH ×3 (00:45→20:45)
[2020-03-09 03:00] VITALS: BP 123/76
[2020-03-09 05:58] LABS: BASO % 1 % (0-3); EOS # 0.4 x10^3/uL (0.0-0.7); EOS % 7 % (0-3); HEMATOCRIT 37.9 % (39.0-53.0); HEMOGLOBIN 12.6 g/dL (13.0-17.5); LYMPH # 1.7 x10^3/uL (1.0-4.8); LYMPH % 28 % (24-48); MEAN CORPUSCULAR HEMOGLOBIN 28 pg (25-35); MEAN CORPUSCULAR HGB CONC 33 g/dL (31-37); MEAN CORPUSCULAR VOLUME 84 fL (79-100); MONO # 0.5 x10^3/uL (0.0-1.1); MONO % 7 % (0-9); NEUT # 3.4 x10^3/uL (1.8-7.7); NEUT % 57 % (31-73); PLATELET COUNT 234 x10^3/uL (140-400); RED BLOOD COUNT 4.49 x10^6/uL (4.30-5.70); RED CELL DISTRIBUTION WIDTH 15.2 % (11.5-14.5); WHITE BLOOD COUNT 6.1 x10^3/uL (4.0-11.0)
[2020-03-09] MEDS: CYCLOBENZAPRINE 10 MG TABLET. PO PRN (06:15)
[2020-03-09] MEDS: oxyCODONE/APAP 5/325 1 TAB TABLET PO PRN ×3 (06:15→22:59)
[2020-03-09] MEDS: PANTOPRAZOLE 40 MG TABLET.DR. PO SCH (06:15)
[2020-03-09 06:25] LABS: ALBUMIN/GLOBULIN RATIO 0.9 (1.0-1.7); CALCIUM 8.6 mg/dL (8.5-10.1); CREATININE 0.9 mg/dL (0.7-1.3); GFR 85.5; POTASSIUM 3.7 mmol/L (3.5-5.1); TOTAL BILIRUBIN 0.3 mg/dL (0.2-1.0); TOTAL PROTEIN 6.3 g/dL (6.4-8.2)
[2020-03-09 07:04] VITALS: BP 108/70
--- NOTE | 2020-03-09 08:50 | PDOC ---
PROGRESS NOTES Date of Service: DATE: 03/09/20 TIME: 08:49 Chief Complaint Chief Complaint impression ======= Flank pain wall thickening of the visualized distal esophagus, could be due to esophagitis, cannot accurately exclude underlying mass. There is small hiatal hernia. MAJOR DEPRESSION WITH SI Tobacco abuse NO MICROHEMATURIA plan consult psych gi consult PT/OT Consult dr lazaro 37 min pt exam, chart review, > 50% of time spent with exam, chart review, pt care coordination 64-year-old male well on high dose methadone FOR BACK PAIN . 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 presents with abdominal pain. We are concerned he could have kidney stone. We tried to scan him in the ER, but he could not sit still. Then he explained to the nurses that he was suicidal. He got a little agitated. We had to call security. Now we have given some Ativan and Haldol in the ER, he is calm NOW admit the patient. PAST MEDICAL HISTORY: Anxiety, depression, PTSD, chronic pain, narcotic dependence. I suspect he may have done heroin in the past, but I am not clear on that. Bone graft, left liver surgery, current tobacco abuse. ALLERGIES: PENICILLIN AND SULFA. FAMILY HISTORY: Coronary disease. SOCIAL HISTORY: He smokes and drinks. No drugs other than methadone currently. History of Present Illness History of Present Illness 03/09/2020 Patient seen and examined WALKING IN [place] WITH pt NAD Advanced multilevel lumbar spondylosis with rightward curvature. Discussed with RN Chart reviewed Tox screen was positive for methadone Continue PRN sedatives 1:1 observation Await Psych Discharge disposition pending PAT CONSULT ugi today discussed DPOA NEED 12 MIN D/W RN Patient was complaining of abdominal pain, kidney stone and demonstrated suicidal ideation ON ADMIT Vitals Vitals Vital Signs Date Time Temp Pulse Resp B/P (MAP) Pulse Ox O2 Delivery O2 Flow Rate FiO2 03/09/20 07:45 96 Room Air 99.0 03/09/20 07:04 98.0 74 16 108/70 (83) 98.0 Physical Exam Physical Exam walking in [place] with walker General: Alert, Oriented X3, Cooperative, No acute distress Heart: Regular rate Lungs: Clear Abdomen: Other (flank pain) Extremities: No clubbing, No cyanosis, No edema Skin: No rashes Labs LABS LUMBAR SPINE MIN 4V History: Reason: severe back pain / Spl. Instructions: / History: Technique: 5 views lumbar spine Comparison: CT March 06, 2020 Findings: Moderately curvature of the lumbar spine centered at L2. Chronic appearing L4 compression deformity. No fracture. Advanced multilevel degenerative disc changes most prominent L1-L2, L2-L3 and L3-L4. Impression: 1. Advanced multilevel lumbar spondylosis with rightward curvature. Electronically signed by: Marvin Portillo DO (03/09/2020 3:26 PM) [facility] DICTATED and SIGNED BY: MARVIN PORTILLO DO DATE: 03/09/20 1526 Laboratory Tests Test 03/08/20 10:45 03/09/20 04:35 SARS-CoV-2 Antigen (Rapid) Negative (NEGATIVE) White Blood Count 6.1 x10^3/uL (4.0-11.0) Red Blood Count 4.49 x10^6/uL (4.30-5.70) Hemoglobin 12.6 g/dL (13.0-17.5) Hematocrit 37.9 % (39.0-53.0) Mean Corpuscular Volume 84 fL (79-100) Mean Corpuscular Hemoglobin 28 pg (25-35) Mean Corpuscular Hemoglobin Concent 33 g/dL (31-37) Red Cell Distribution Width 15.2 % (11.5-14.5) Platelet Count 234 x10^3/uL (140-400) Neutrophils (%) (Auto) 57 % (31-73) Lymphocytes (%) (Auto) 28 % (24-48) Monocytes (%) (Auto) 7 % (0-9) Eosinophils (%) (Auto) 7 % (0-3) Basophils (%) (Auto) 1 % (0-3) Neutrophils # (Auto) 3.4 x10^3/uL (1.8-7.7) Lymphocytes # (Auto) 1.7 x10^3/uL (1.0-4.8) Monocytes # (Auto) 0.5 x10^3/uL (0.0-1.1) Eosinophils # (Auto) 0.4 x10^3/uL (0.0-0.7) Basophils # (Auto) 0.0 x10^3/uL (0.0-0.2) Sodium Level 140 mmol/L (136-145) Potassium Level 3.7 mmol/L (3.5-5.1) Chloride Level 104 mmol/L (98-107) Carbon Dioxide Level 28 mmol/L (21-32) Anion Gap 8 (6-14) Blood Urea Nitrogen 19 mg/dL (8-26) Creatinine 0.9 mg/dL (0.7-1.3) Estimated GFR (Cockcroft-Gault) 85.5 BUN/Creatinine Ratio 21 (6-20) Glucose Level 117 mg/dL (70-99) Calcium Level 8.6 mg/dL (8.5-10.1) Total Bilirubin 0.3 mg/dL (0.2-1.0) Aspartate Amino Transf (AST/SGOT) 27 U/L (15-37) Alanine Aminotransferase (ALT/SGPT) 23 U/L (16-63) Alkaline Phosphatase 80 U/L (46-116) Total Protein 6.3 g/dL (6.4-8.2) Albumin 3.0 g/dL (3.4-5.0) Albumin/Globulin Ratio 0.9 (1.0-1.7) Assessment and Plan Assessmemt and Plan Problems Medical Problems: (1) Degenerative disc disease, lumbar Status: Acute (2) Intractable back pain Status: Acute (3) Suicidal behavior Status: Acute AD DISCUSSION 14 MIN CPR (cardiopulmonary resuscitation) Ventilator use Artificial nutrition (tube feeding) and artificial hydration (IV, or intravenous, fluids) Comfort care What is CPR? Cardiopulmonary resuscitation might restore your heartbeat if your heart stops or is in a life-threatening abnormal rhythm. It involves repeatedly pushing on the chest with force, while putting air into the lungs. This force has to be quite strong, and sometimes ribs are broken or a lung collapses. Electric shocks, known as defibrillation, and medicines might also be used as part of the process. The heart of a young, otherwise healthy person might resume beating normally after CPR. Often, CPR does not succeed in older adults who have multiple chronic illnesses or who are already frail. Using a ventilator as emergency treatment. Ventilators are machines that help you breathe. A tube connected to the ventilator is put through the throat into the trachea (windpipe) so the machine can force air into the lungs. Putting the tube down the throat is called intubation. Because the tube is uncomfortable, medicines are often used to keep you sedated while on a ventilator. If you are expected to remain on a ventilator for a long time, a doctor may perform a tracheotomy or "trach" (rhymes with "make"). During this bedside surgery, the tube is inserted directly into the trachea through a hole in the neck. For long- term help with breathing, a trach is more comfortable, and sedation is not needed. People using such a breathing tube are not able to speak without special help because exhaled air does not go past their vocal cords. Using artificial nutrition and hydration near the end of life. If you are not able to eat, you may be fed through a feeding tube that is threaded through the nose down to your stomach. If tube feeding is still needed for an extended period, a feeding tube may be surgically inserted directly into your stomach. Hand feeding (sometimes called assisted oral feeding) is an alternative to tube feeding. This approach may have fewer risks, especially for people with dementia. If you are not able to drink, you may be provided with IV fluids. These are delivered through a thin plastic tube inserted into a vein. Artificial nutrition and hydration can be helpful if you are recovering from an illness. However, studies have shown that artificial nutrition toward the end of life does not meaningfully prolong life. Artificial nutrition and hydration may also be harmful if the dying body cannot use the nutrition properly. CPR (cardiopulmonary resuscitation) Ventilator use Artificial nutrition (tube feeding) and artificial hydration (IV, or intravenous, fluids) Comfort care What is CPR? Cardiopulmonary resuscitation might restore your heartbeat if your heart stops or is in a life-threatening abnormal rhythm. It involves repeatedly pushing on the chest with force, while putting air into the lungs. This force has to be quite strong, and sometimes ribs are broken or a lung collapses. Elec tric shocks, known as defibrillation, and medicines might also be used as part of the process. The heart of a young, otherwise healthy person might resume beating normally after CPR. Often, CPR does not succeed in older adults who have multiple chronic illnesses or who are already frail. Using a ventilator as emergency treatment. Ventilators are machines that help you breathe. A tube connected to the ventilator is put through the throat into the trachea (windpipe) so the machine can force air into the lungs. Putting the tube down the throat is called intubation. Because the tube is uncomfortable, medicines are often used to keep you sedated while on a ventilator. If you are expected to remain on a ventilator for a long time, a doctor may perform a tracheotomy or "trach" (rhymes with "make"). During this bedside surgery, the tube is inserted directly into the trachea through a hole in the neck. For long- term help with breathing, a trach is more comfortable, and sedation is not needed. People using such a breathing tube are not able to speak without special help because exhaled air does not go past their vocal cords. Using artificial nutrition and hydration near the end of life. If you are not able to eat, you may be fed through a feeding tube that is threaded through the nose down to your stomach. If tube feeding is still needed for an extended period, a feeding tube may be surgically inserted directly into your stomach. Hand feeding (sometimes called assisted oral feeding) is an alternative to tube feeding. This approach may have fewer risks, especially for people with dementia. Comment Review of Relevant I have reviewed the following items laura (where applicable) has been applied. Labs Laboratory Tests Test 03/08/20 04:15 03/08/20 10:45 03/09/20 04:35 White Blood Count 7.2 x10^3/uL (4.0-11.0) 6.1 x10^3/uL (4.0-11.0) Red Blood Count 4.67 x10^6/uL (4.30-5.70) 4.49 x10^6/uL (4.30-5.70) Hemoglobin 13.2 g/dL (13.0-17.5) 12.6 g/dL (13.0-17.5) Hematocrit 39.2 % (39.0-53.0) 37.9 % (39.0-53.0) Mean Corpuscular Volume 84 fL (79-100) 84 fL (79-100) Mean Corpuscular Hemoglobin 28 pg (25-35) 28 pg (25-35) Mean Corpuscular Hemoglobin Concent 34 g/dL (31-37) 33 g/dL (31-37) Red Cell Distribution Width 15.1 % (11.5-14.5) 15.2 % (11.5-14.5) Platelet Count 250 x10^3/uL (140-400) 234 x10^3/uL (140-400) Neutrophils (%) (Auto) 64 % (31-73) 57 % (31-73) Lymphocytes (%) (Auto) 26 % (24-48) 28 % (24-48) Monocytes (%) (Auto) 6 % (0-9) 7 % (0-9) Eosinophils (%) (Auto) 4 % (0-3) 7 % (0-3) Basophils (%) (Auto) 0 % (0-3) 1 % (0-3) Neutrophils # (Auto) 4.6 x10^3/uL (1.8-7.7) 3.4 x10^3/uL (1.8-7.7) Lymphocytes # (Auto) 1.9 x10^3/uL (1.0-4.8) 1.7 x10^3/uL (1.0-4.8) Monocytes # (Auto) 0.4 x10^3/uL (0.0-1.1) 0.5 x10^3/uL (0.0-1.1) Eosinophils # (Auto) 0.3 x10^3/uL (0.0-0.7) 0.4 x10^3/uL (0.0-0.7) Basophils # (Auto) 0.0 x10^3/uL (0.0-0.2) 0.0 x10^3/uL (0.0-0.2) Sodium Level 141 mmol/L (136-145) 140 mmol/L (136-145) Potassium Level 3.8 mmol/L (3.5-5.1) 3.7 mmol/L (3.5-5.1) Chloride Level 103 mmol/L (98-107) 104 mmol/L (98-107) Carbon Dioxide Level 28 mmol/L (21-32) 28 mmol/L (21-32) Anion Gap 10 (6-14) 8 (6-14) Blood Urea Nitrogen 25 mg/dL (8-26) 19 mg/dL (8-26) Creatinine 0.9 mg/dL (0.7-1.3) 0.9 mg/dL (0.7-1.3) Estimated GFR (Cockcroft-Gault) 85.5 85.5 BUN/Creatinine Ratio 28 (6-20) 21 (6-20) Glucose Level 82 mg/dL (70-99) 117 mg/dL (70-99) Calcium Level 8.6 mg/dL (8.5-10.1) 8.6 mg/dL (8.5-10.1) Total Bilirubin 0.5 mg/dL (0.2-1.0) 0.3 mg/dL (0.2-1.0) Aspartate Amino Transf (AST/SGOT) 37 U/L (15-37) 27 U/L (15-37) Alanine Aminotransferase (ALT/SGPT) 23 U/L (16-63) 23 U/L (16-63) Alkaline Phosphatase 80 U/L (46-116) 80 U/L (46-116) Total Protein 6.6 g/dL (6.4-8.2) 6.3 g/dL (6.4-8.2) Albumin 3.0 g/dL (3.4-5.0) 3.0 g/dL (3.4-5.0) Albumin/Globulin Ratio 0.8 (1.0-1.7) 0.9 (1.0-1.7) SARS-CoV-2 Antigen (Rapid) Negative (NEGATIVE) Laboratory Tests Test 03/08/20 10:45 03/09/20 04:35 SARS-CoV-2 Antigen (Rapid) Negative (NEGATIVE) White Blood Count 6.1 x10^3/uL (4.0-11.0) Red Blood Count 4.49 x10^6/uL (4.30-5.70) Hemoglobin 12.6 g/dL (13.0-17.5) Hematocrit 37.9 % (39.0-53.0) Mean Corpuscular Volume 84 fL (79-100) Mean Corpuscular Hemoglobin 28 pg (25-35) Mean Corpuscular Hemoglobin Concent 33 g/dL (31-37) Red Cell Distribution Width 15.2 % (11.5-14.5) Platelet Count 234 x10^3/uL (140-400) Neutrophils (%) (Auto) 57 % (31-73) Lymphocytes (%) (Auto) 28 % (24-48) Monocytes (%) (Auto) 7 % (0-9) Eosinophils (%) (Auto) 7 % (0-3) Basophils (%) (Auto) 1 % (0-3) Neutrophils # (Auto) 3.4 x10^3/uL (1.8-7.7) Lymphocytes # (Auto) 1.7 x10^3/uL (1.0-4.8) Monocytes # (Auto) 0.5 x10^3/uL (0.0-1.1) Eosinophils # (Auto) 0.4 x10^3/uL (0.0-0.7) Basophils # (Auto) 0.0 x10^3/uL (0.0-0.2) Sodium Level 140 mmol/L (136-145) Potassium Level 3.7 mmol/L (3.5-5.1) Chloride Level 104 mmol/L (98-107) Carbon Dioxide Level 28 mmol/L (21-32) Anion Gap 8 (6-14) Blood Urea Nitrogen 19 mg/dL (8-26) Creatinine 0.9 mg/dL (0.7-1.3) Estimated GFR (Cockcroft-Gault) 85.5 BUN/Creatinine Ratio 21 (6-20) Glucose Level 117 mg/dL (70-99) Calcium Level 8.6 mg/dL (8.5-10.1) Total Bilirubin 0.3 mg/dL (0.2-1.0) Aspartate Amino Transf (AST/SGOT) 27 U/L (15-37) Alanine Aminotransferase (ALT/SGPT) 23 U/L (16-63) Alkaline Phosphatase 80 U/L (46-116) Total Protein 6.3 g/dL (6.4-8.2) Albumin 3.0 g/dL (3.4-5.0) Albumin/Globulin Ratio 0.9 (1.0-1.7) Microbiology 03/06/20 Urine Culture - Preliminary, Resulted Medications Current Medications Ketorolac Tromethamine (Toradol 30mg Vial) 30 mg 1X ONCE IVP Last administered on 03/06/20at 17:07; Start 03/06/20 at 17:00; Stop 03/06/20 at 17:04; Status DC Metoclopramide HCl (Reglan Vial) 10 mg 1X ONCE IVP Last administered on 03/06/20at 17:07; Start 03/06/20 at 17:00; Stop 03/06/20 at 17:04; Status DC Sodium Chloride 1,000 ml @ 1,000 mls/hr 1X ONCE IV Last administered on 03/06/20at 17:07; Start 03/06/20 at 17:00; Stop 03/06/20 at 17:59; Status DC Metoclopramide HCl (Reglan Vial) 10 mg STK-MED ONCE .ROUTE ; Start 03/06/20 at 17:05; Stop 03/06/20 at 17:05; Status DC Ketorolac Tromethamine (Toradol 30mg Vial) 30 mg STK-MED ONCE .ROUTE ; Start 03/06/20 at 17:05; Stop 03/06/20 at 17:05; Status DC Haloperidol Lactate (Haldol Inj) 5 mg STK-MED ONCE .ROUTE ; Start 03/06/20 at 17:32; Stop 03/06/20 at 17:32; Status DC Lorazepam (Ativan Inj) 2 mg STK-MED ONCE .ROUTE ; Start 03/06/20 at 17:34; Stop 03/06/20 at 17:35; Status DC Diphenhydramine HCl (Benadryl) 50 mg 1X ONCE IVP ; Start 03/06/20 at 17:45; Stop 03/06/20 at 17:46; Status DC Haloperidol (Haldol) 5 mg 1X PRN PO AGITATION; Start 03/06/20 at 17:45; Status Cancel Lorazepam (Ativan Inj) 2 mg 1X ONCE IVP Last administered on 03/06/20at 17:51; Start 03/06/20 at 17:45; Stop 03/06/20 at 17:48; Status DC Fentanyl Citrate (Fentanyl 2ml Vial) 50 mcg 1X ONCE IVP Last administered on 03/06/20at 17:53; Start 03/06/20 at 17:45; Stop 03/06/20 at 17:48; Status DC Lorazepam (Ativan Inj) 2 mg 1X ONCE IVP Last administered on 03/06/20at 17:52; Start 03/06/20 at 18:00; Stop 03/06/20 at 18:01; Status DC Haloperidol Lactate (Haldol Inj) 5 mg 1X ONCE IVP ; Start 03/06/20 at 18:00; Stop 03/06/20 at 17:56; Status DC Haloperidol Lactate (Haldol Inj) 5 mg 1X ONCE IVP Last administered on 03/06/20 17:55; Start 03/06/20 at 18:00; Stop 03/06/20 at 18:01; Status DC Methylprednisolone (Medrol) 32 mg 1X ONCE PO Last administered on 03/06/20at 20:46; Start 03/06/20 at 19:30; Stop 03/06/20 at 19:31; Status DC Ondansetron HCl (Zofran) 4 mg PRN Q8HRS PRN IV NAUSEA/VOMITING; Start 03/06/20 at 21:15; Stop 03/07/20 at 21:14; Status DC Lorazepam (Ativan Inj) 4 mg PRN Q2HRS PRN IVP ANXIETY / AGITATION Last administered on 03/08/20at 21:11; Start 03/06/20 at 22:00 Haloperidol Lactate (Haldol Inj) 5 mg PRN Q6HRS PRN IVP AGITATION Last administered on 03/07/20at 19:43; Start 03/06/20 at 22:00 Ondansetron HCl (Zofran) 4 mg PRN Q6HRS PRN IVP NAUSEA/VOMITING Last administered on 03/08/20 16:23; Start 03/06/20 at 22:00 Olanzapine (ZyPREXA IM) 10 mg PRN Q8HRS PRN IM agitation Last administered on 03/06/20at 22:13; Start 03/06/20 at 22:00 Sodium Chloride 1,000 ml @ 100 mls/hr Q10H IV Last administered on 03/06/20at 22:41; Start 03/06/20 at 22:45 Dicyclomine HCl (Bentyl) 10 mg PRN QID PRN PO ABDOMINAL PAIN Last administered on 03/07/20at 19:43; Start 03/07/20 at 19:30 Cyclobenzaprine HCl (Flexeril) 10 mg PRN TID PRN PO MUSCLE SPASMS Last administered on 03/09/20at 06:15; Start 03/07/20 at 20:00 Oxycodone/ Acetaminophen (Percocet 5/325) 1 tab PRN Q6HRS PRN PO PAIN Last administered on 03/09/20 06:15; Start 03/07/20 at 20:00 Nicotine (Nicoderm Cq 21mg) 1 patch DAILY TD Last administered on 03/08/20at 11:35; Start 03/08/20 at 09:00 Nicotine Polacrilex (Nicorette Gum) 1 each PRN Q1HR PRN BC SMOKING CESSATION Last administered on 03/08/20at 09:19; Start 03/08/20 at 09:00 Pantoprazole Sodium (Protonix) 40 mg DAILYAC PO Last administered on 03/09/20at 06:15; Start 03/08/20 at 10:15 Lidocaine (Lidoderm) 1 patch DAILY TD ; Start 03/09/20 at 09:00 Miscellaneous (Lidoderm Patch Removal) 1 ea QHS MC Last administered on 03/08/20at 21:00; Start 03/08/20 at 21:00 Nitrofurantoin Macrocrystals (Macrobid) 100 mg BID PO Last administered on 03/08/20at 21:00; Start 03/08/20 at 21:00 Vitals/I & O Vital Sign - Last 24 Hours 03/08/20 03/08/20 03/08/20 03/08/20 10:11 12:01 14:21 15:22 Temp 97.4 97.2 97.4 97.2 Pulse 92 Resp 16 16 B/P (MAP) 129/82 (98) 152/98 (116) Pulse Ox 99 O2 Delivery Room Air Room Air Room Air Room Air O2 Flow Rate 99.0 03/08/20 03/08/20 03/08/20 03/08/20 18:31 20:00 22:11 23:00 Temp 97.2 97.2 97.2 97.2 Pulse 105 105 Resp 18 B/P (MAP) 125/78 (94) 143/90 (107) Pulse Ox 99 98 99 O2 Delivery Room Air Room Air Room Air Room Air O2 Flow Rate 99.0 99.0 03/09/20 03/09/20 03/09/20 03/09/20 03:00 06:15 07:04 07:45 Temp 97.3 98.0 97.3 98.0 Pulse 90 74 Resp 18 18 16 B/P (MAP) 123/76 (92) 108/70 (83) Pulse Ox 98 96 96 O2 Delivery Room Air Room Air Room Air O2 Flow Rate 99.0 Intake and Output 8/03/08/20 03/09/20 15:00 23:00 07:00 Intake Total 600 ml 350 ml Balance 600 ml 350 ml Justicifation of Admission Dx: Justifications for Admission: Justification of Admission Dx: Yes ROSA MARIA ULLOA MD Mar 09, 2020 08:50
[2020-03-09] MEDS ORDERED: BARIUM SULFATE 96% 397 GM ENEMA. PR ONE (09:30)
--- NOTE | 2020-03-09 09:32 | NUR ---
SW following. Discussed with RN, pt having an upper GI series today for potential esophageal mass. Per Dr. Neri, If series is clear and ok with GI pt can discharge to psych facility when ready. EKG done yesterday. Soy with PAT notified.
[2020-03-09] MEDS: NITROFURANTOIN MONOHYD/M-CRYST 100 MG CAPSULE. PO SCH ×3 (09:33→21:49)
[2020-03-09] MEDS: LIDOCAINE (700MG/PATCH) PATCH. TD SCH (09:33)
[2020-03-09] MEDS: NICOTINE 21MG PATCH. TD SCH (09:37)
[2020-03-09] MEDS: NICOTINE POLACRILEX 2MG GUM PACKAGE of 12. BC PRN ×4 (10:00→19:30)
[2020-03-09 11:11] VITALS: BP 125/93
--- NOTE | 2020-03-09 13:51 | PDOC ---
Date of Service: DATE: 03/09/20 TIME: 13:49 Subjective: Subjective: No dysphagia. Objective: Objective: Called by radiology this morning - they were not aware of CT done 03/06 w/ esophagus abnormality and requested clarification. Vital Signs: Vital Signs Date Time Temp Pulse Resp B/P (MAP) Pulse Ox O2 Delivery O2 Flow Rate FiO2 03/09/20 11:11 97.9 95 20 125/93 (104) 94 Room Air 97.9 03/09/20 07:45 99.0 Imaging: Esophagram pending L-spine X-Ray pending PE: GEN: NAD - walking w/ 1:1, using walker, hunched over NEURO/PSYCH: A & O 3 A/P: Chronic pain, UTI GERD, abnormal esophagus on CT -- Esophagram pending, continue PPI. Justicifation of Admission Dx: Justifications for Admission: Justification of Admission Dx: Yes ANA RODRIGUEZ Mar 09, 2020 13:51
--- NOTE | 2020-03-09 13:55 | PDOC ---
PROGRESS NOTES Date of Service DATE: 03/09/20 TIME: 13:53 Subjective Subjective No new complaints. Objective Objective Vital Signs Date Time Temp Pulse Resp B/P (MAP) Pulse Ox O2 Delivery O2 Flow Rate FiO2 03/09/20 11:11 97.9 95 20 125/93 (104) 94 Room Air 97.9 03/09/20 07:45 99.0 Intake and Output 03/09/20 07:00 Intake Total 950 ml Balance 950 ml Intake Oral 950 ml # Voids 5 Physical Exam Physical Exam he is walking in the hallway with bent forward posture using roller walker under nursing supervision without lumbar support. Assessment Assessment Problems Medical Problems: (1) Degenerative disc disease, lumbar Status: Acute (2) Intractable back pain Status: Acute (3) Suicidal behavior Status: Acute Plan Plan of Care To continue present care efforts as tolerated. Comment Review of Relevant I have reviewed the following items laura (where applicable) has been applied. Labs Laboratory Tests Test 03/08/20 04:15 03/08/20 10:45 03/09/20 04:35 White Blood Count 7.2 x10^3/uL (4.0-11.0) 6.1 x10^3/uL (4.0-11.0) Red Blood Count 4.67 x10^6/uL (4.30-5.70) 4.49 x10^6/uL (4.30-5.70) Hemoglobin 13.2 g/dL (13.0-17.5) 12.6 g/dL (13.0-17.5) Hematocrit 39.2 % (39.0-53.0) 37.9 % (39.0-53.0) Mean Corpuscular Volume 84 fL (79-100) 84 fL (79-100) Mean Corpuscular Hemoglobin 28 pg (25-35) 28 pg (25-35) Mean Corpuscular Hemoglobin Concent 34 g/dL (31-37) 33 g/dL (31-37) Red Cell Distribution Width 15.1 % (11.5-14.5) 15.2 % (11.5-14.5) Platelet Count 250 x10^3/uL (140-400) 234 x10^3/uL (140-400) Neutrophils (%) (Auto) 64 % (31-73) 57 % (31-73) Lymphocytes (%) (Auto) 26 % (24-48) 28 % (24-48) Monocytes (%) (Auto) 6 % (0-9) 7 % (0-9) Eosinophils (%) (Auto) 4 % (0-3) 7 % (0-3) Basophils (%) (Auto) 0 % (0-3) 1 % (0-3) Neutrophils # (Auto) 4.6 x10^3/uL (1.8-7.7) 3.4 x10^3/uL (1.8-7.7) Lymphocytes # (Auto) 1.9 x10^3/uL (1.0-4.8) 1.7 x10^3/uL (1.0-4.8) Monocytes # (Auto) 0.4 x10^3/uL (0.0-1.1) 0.5 x10^3/uL (0.0-1.1) Eosinophils # (Auto) 0.3 x10^3/uL (0.0-0.7) 0.4 x10^3/uL (0.0-0.7) Basophils # (Auto) 0.0 x10^3/uL (0.0-0.2) 0.0 x10^3/uL (0.0-0.2) Sodium Level 141 mmol/L (136-145) 140 mmol/L (136-145) Potassium Level 3.8 mmol/L (3.5-5.1) 3.7 mmol/L (3.5-5.1) Chloride Level 103 mmol/L (98-107) 104 mmol/L (98-107) Carbon Dioxide Level 28 mmol/L (21-32) 28 mmol/L (21-32) Anion Gap 10 (6-14) 8 (6-14) Blood Urea Nitrogen 25 mg/dL (8-26) 19 mg/dL (8-26) Creatinine 0.9 mg/dL (0.7-1.3) 0.9 mg/dL (0.7-1.3) Estimated GFR (Cockcroft-Gault) 85.5 85.5 BUN/Creatinine Ratio 28 (6-20) 21 (6-20) Glucose Level 82 mg/dL (70-99) 117 mg/dL (70-99) Calcium Level 8.6 mg/dL (8.5-10.1) 8.6 mg/dL (8.5-10.1) Total Bilirubin 0.5 mg/dL (0.2-1.0) 0.3 mg/dL (0.2-1.0) Aspartate Amino Transf (AST/SGOT) 37 U/L (15-37) 27 U/L (15-37) Alanine Aminotransferase (ALT/SGPT) 23 U/L (16-63) 23 U/L (16-63) Alkaline Phosphatase 80 U/L (46-116) 80 U/L (46-116) Total Protein 6.6 g/dL (6.4-8.2) 6.3 g/dL (6.4-8.2) Albumin 3.0 g/dL (3.4-5.0) 3.0 g/dL (3.4-5.0) Albumin/Globulin Ratio 0.8 (1.0-1.7) 0.9 (1.0-1.7) Coronavirus (PCR) Not detected (Not Detected) SARS-CoV-2 Antigen (Rapid) Negative (NEGATIVE) Laboratory Tests Test 03/09/20 04:35 White Blood Count 6.1 x10^3/uL (4.0-11.0) Red Blood Count 4.49 x10^6/uL (4.30-5.70) Hemoglobin 12.6 g/dL (13.0-17.5) Hematocrit 37.9 % (39.0-53.0) Mean Corpuscular Volume 84 fL (79-100) Mean Corpuscular Hemoglobin 28 pg (25-35) Mean Corpuscular Hemoglobin Concent 33 g/dL (31-37) Red Cell Distribution Width 15.2 % (11.5-14.5) Platelet Count 234 x10^3/uL (140-400) Neutrophils (%) (Auto) 57 % (31-73) Lymphocytes (%) (Auto) 28 % (24-48) Monocytes (%) (Auto) 7 % (0-9) Eosinophils (%) (Auto) 7 % (0-3) Basophils (%) (Auto) 1 % (0-3) Neutrophils # (Auto) 3.4 x10^3/uL (1.8-7.7) Lymphocytes # (Auto) 1.7 x10^3/uL (1.0-4.8) Monocytes # (Auto) 0.5 x10^3/uL (0.0-1.1) Eosinophils # (Auto) 0.4 x10^3/uL (0.0-0.7) Basophils # (Auto) 0.0 x10^3/uL (0.0-0.2) Sodium Level 140 mmol/L (136-145) Potassium Level 3.7 mmol/L (3.5-5.1) Chloride Level 104 mmol/L (98-107) Carbon Dioxide Level 28 mmol/L (21-32) Anion Gap 8 (6-14) Blood Urea Nitrogen 19 mg/dL (8-26) Creatinine 0.9 mg/dL (0.7-1.3) Estimated GFR (Cockcroft-Gault) 85.5 BUN/Creatinine Ratio 21 (6-20) Glucose Level 117 mg/dL (70-99) Calcium Level 8.6 mg/dL (8.5-10.1) Total Bilirubin 0.3 mg/dL (0.2-1.0) Aspartate Amino Transf (AST/SGOT) 27 U/L (15-37) Alanine Aminotransferase (ALT/SGPT) 23 U/L (16-63) Alkaline Phosphatase 80 U/L (46-116) Total Protein 6.3 g/dL (6.4-8.2) Albumin 3.0 g/dL (3.4-5.0) Albumin/Globulin Ratio 0.9 (1.0-1.7) Microbiology 03/06/20 Urine Culture - Final, Complete 03/06/20 Antimicrobic Susceptibility - Final, Complete Medications Current Medications Ketorolac Tromethamine (Toradol 30mg Vial) 30 mg 1X ONCE IVP Last administered on 03/06/20at 17:07; Start 03/06/20 at 17:00; Stop 03/06/20 at 17:04; Status DC Metoclopramide HCl (Reglan Vial) 10 mg 1X ONCE IVP Last administered on at 17:07; Start 03/06/20 at 17:00; Stop 03/06/20 at 17:04; Status DC Sodium Chloride 1,000 ml @ 1,000 mls/hr 1X ONCE IV Last administered on 03/06/20at 17:07; Start 03/06/20 at 17:00; Stop 03/06/20 at 17:59; Status DC Metoclopramide HCl (Reglan Vial) 10 mg STK-MED ONCE .ROUTE ; Start 03/06/20 at 17:05; Stop 03/06/20 at 17:05; Status DC Ketorolac Tromethamine (Toradol 30mg Vial) 30 mg STK-MED ONCE .ROUTE ; Start 03/06/20 at 17:05; Stop 03/06/20 at 17:05; Status DC Haloperidol Lactate (Haldol Inj) 5 mg STK-MED ONCE .ROUTE ; Start 03/06/20 at 17:32; Stop 03/06/20 at 17:32; Status DC Lorazepam (Ativan Inj) 2 mg STK-MED ONCE .ROUTE ; Start 03/06/20 at 17:34; Stop 03/06/20 at 17:35; Status DC Diphenhydramine HCl (Benadryl) 50 mg 1X ONCE IVP ; Start 03/06/20 at 17:45; Stop 03/06/20 at 17:46; Status DC Haloperidol (Haldol) 5 mg 1X PRN PO AGITATION; Start 03/06/20 at 17:45; Status Cancel Lorazepam (Ativan Inj) 2 mg 1X ONCE IVP Last administered on 03/06/20at 17:51; Start 03/06/20 at 17:45; Stop 03/06/20 at 17:48; Status DC Fentanyl Citrate (Fentanyl 2ml Vial) 50 mcg 1X ONCE IVP Last administered on 03/06/20at 17:53; Start 03/06/20 at 17:45; Stop 03/06/20 at 17:48; Status DC Lorazepam (Ativan Inj) 2 mg 1X ONCE IVP Last administered on 03/06/20at 17:52; Start 03/06/20 at 18:00; Stop 03/06/20 at 18:01; Status DC Haloperidol Lactate (Haldol Inj) 5 mg 1X ONCE IVP ; Start 03/06/20 at 18:00; Stop 03/06/20 at 17:56; Status DC Haloperidol Lactate (Haldol Inj) 5 mg 1X ONCE IVP Last administered on at 17:55; Start 03/06/20 at 18:00; Stop 03/06/20 at 18:01; Status DC Methylprednisolone (Medrol) 32 mg 1X ONCE PO Last administered on 03/06/20 20:46; Start 03/06/20 at 19:30; Stop 03/06/20 at 19:31; Status DC Ondansetron HCl (Zofran) 4 mg PRN Q8HRS PRN IV NAUSEA/VOMITING; Start 03/06/20 at 21:15; Stop 03/07/20 at 21:14; Status DC Lorazepam (Ativan Inj) 4 mg PRN Q2HRS PRN IVP ANXIETY. Last administered on 03/09/20 09:32; Start 03/06/20 at 22:00 Haloperidol Lactate (Haldol Inj) 5 mg PRN Q6HRS PRN IVP AGITATION Last administered on 03/07/20 19:43; Start 03/06/20 at 22:00 Ondansetron HCl (Zofran) 4 mg PRN Q6HRS PRN IVP NAUSEA/VOMITING Last administered on 03/08/20 16:23; Start 03/06/20 at 22:00 Olanzapine (ZyPREXA IM) 10 mg PRN Q8HRS PRN IM agitation Last administered on 03/06/20 22:13; Start 03/06/20 at 22:00 Sodium Chloride 1,000 ml @ 100 mls/hr Q10H IV Last administered on 03/06/20 22:41; Start 03/06/20 at 22:45 Dicyclomine HCl (Bentyl) 10 mg PRN QID PRN PO ABDOMINAL PAIN Last administered on 03/07/20 19:43; Start 03/07/20 at 19:30 Cyclobenzaprine HCl (Flexeril) 10 mg PRN TID PRN PO MUSCLE SPASMS Last administered on 03/09/20 06:15; Start 03/07/20 at 20:00 Oxycodone/ Acetaminophen (Percocet 5/325) 1 tab PRN Q6HRS PRN PO PAIN Last administered on 03/09/20 06:15; Start 03/07/20 at 20:00 Nicotine (Nicoderm Cq 21mg) 1 patch DAILY TD Last administered on 8/28/20at 09:37; Start 03/08/20 at 09:00 Nicotine Polacrilex (Nicorette Gum) 1 each PRN Q1HR PRN BC SMOKING CESSATION Last administered on 03/09/20at 12:09; Start 03/08/20 at 09:00 Pantoprazole Sodium (Protonix) 40 mg DAILYAC PO Last administered on 03/09/20at 06:15; Start 03/08/20 at 10:15 Lidocaine (Lidoderm) 1 patch DAILY TD Last administered on 03/09/20at 09:33; Start 03/09/20 at 09:00 Miscellaneous (Lidoderm Patch Removal) 1 ea QHS MC Last administered on 03/08/20at 21:00; Start 03/08/20 at 21:00 Nitrofurantoin Macrocrystals (Macrobid) 100 mg BID PO Last administered on 03/09/20at 09:33; Start 03/08/20 at 21:00 Barium Sulfate (Polibar Acb) 397 gm 1X ONCE NC ; Start 03/09/20 at 09:30; Stop 03/09/20 at 09:31; Status DC Vitals/I & O Vital Sign - Last 24 Hours 03/08/20 03/08/20 03/08/20 03/08/20 14:21 15:22 18:31 20:00 Temp 97.2 97.2 97.2 97.2 Pulse 92 105 Resp 16 16 B/P (MAP) 152/98 (116) 125/78 (94) Pulse Ox 99 O2 Delivery Room Air Room Air Room Air Room Air O2 Flow Rate 99.0 03/08/20 03/08/20 03/09/20 03/09/20 22:11 23:00 03:00 06:15 Temp 97.2 97.3 97.2 97.3 Pulse 105 90 Resp 18 18 18 B/P (MAP) 143/90 (107) 123/76 (92) Pulse Ox 98 99 98 O2 Delivery Room Air Room Air Room Air O2 Flow Rate 99.0 99.0 03/09/20 03/09/20 03/09/20 03/09/20 07:04 07:45 08:00 11:11 Temp 98.0 97.9 98.0 97.9 Pulse 74 95 Resp 16 20 B/P (MAP) 108/70 (83) 125/93 (104) Pulse Ox 96 96 94 O2 Delivery Room Air Room Air Room Air Room Air O2 Flow Rate 99.0 Intake and Output 03/08/20 03/08/20 03/09/20 15:00 23:00 07:00 Intake Total 600 ml 350 ml Balance 600 ml 350 ml Justifications for Admission Other Justification MAGALY BOWMAN MD Mar 09, 2020 13:55
[2020-03-09] MEDS: HALOPERIDOL LACTATE 5 MG/ML VIAL. IVP PRN (14:35)
[2020-03-09 14:48] VITALS: BP 110/70
--- NOTE | 2020-03-09 15:28 | RAD ---
LUMBAR SPINE MIN 4V History: Reason: severe back pain / Spl. Instructions: / History: Technique: 5 views lumbar spine Comparison: CT March 06, 2020 Findings: Moderately curvature of the lumbar spine centered at L2. Chronic appearing L4 compression deformity. No fracture. Advanced multilevel degenerative disc changes most prominent L1-L2, L2-L3 and L3-L4. Impression: 1. Advanced multilevel lumbar spondylosis with rightward curvature. Electronically signed by: Adin Portillo DO (03/09/2020 3:26 PM) EZIO
--- NOTE | 2020-03-09 15:52 | RAD ---
Thoracic esophagram INDICATION: 64-year-old man with incidental esophageal wall thickening identified on recent CT obtained for right flank pain. COMPARISON: Abdomen pelvis CT without IV contrast 03/06/2020. TECHNIQUE AND FINDINGS: Right lateral, RPO and PA views of the thoracic esophagus in the recumbent position obtained with fluoroscopy. Five image series were acquired. Total fluoroscopy time was 2.3 minutes. Patient arrives in the radiology imaging suite unable to stand upright due to discomfort in his back. Even with positioning on his side on the fluoroscopy table, it is with great difficulty that he transiently emerges from the position. The images we were able to acquire of his thoracic esophagus reveal a moderate size hiatal hernia and some nonpropulsive contractions. There is no obvious esophageal mucosal fold thickening but there is mild thickening of the lower esophageal sphincter. No diverticuli. No retained esophageal contents. Patient was unable to cooperate with evaluation for reflux. IMPRESSION: Mild wall thickening of the distal thoracic esophagus could reflect esophagitis in setting of a moderate sized hiatal hernia. Examination is limited due to patient's discomfort and general immobility. Electronically signed by: Guzman Babin MD (03/09/2020 3:49 PM) [id number]
--- NOTE | 2020-03-09 17:09 | PDOC1 ---
History & Psych Evaluation Date of Service: DOS: DATE: 03/09/20 TIME: 17:08 Chief Complaint: Chief Complaint Altered mental status History of Present Illness: HPI: Subjective: This is a follow-up visit. Gentleman is seen for routine follow-up. Progress is reviewed with nursing staff. Patient continues to be dysphoric and lot more disoriented than previous days. He is pacing and noncompliant. When seen, he definitely appears disoriented and yesterday. Mood is dysphoric. Appears anxious. Denies suicidal or homicidal thoughts. Denies auditory or visual hallucinations. For his behavioral disturbances he is requiring multiple psychotropics as needed. Objective: 14 point review of system is otherwise negative except for as stated above. In subjective portion. Current Medications: Current Medications Current Medications Medications (Trade) Dose Ordered Sig/Arabella Start Time Stop Time Status Last Admin Dose Admin Barium Sulfate (Polibar Acb) 397 gm 1X ONCE 03/09/20 09:30 03/09/20 09:31 DC Cyclobenzaprine HCl (Flexeril) 10 mg PRN TID PRN 03/07/20 20:00 03/09/20 06:15 10 MG Dicyclomine HCl (Bentyl) 10 mg PRN QID PRN 03/07/20 19:30 03/07/20 19:43 10 MG Diphenhydramine HCl (Benadryl) 50 mg 1X ONCE 03/06/20 17:45 03/06/20 17:46 DC Fentanyl Citrate (Fentanyl 2ml Vial) 50 mcg 1X ONCE 03/06/20 17:45 03/06/20 17:48 DC 03/06/20 17:53 50 MCG Haloperidol (Haldol) 5 mg 1X PRN 03/06/20 17:45 Cancel Haloperidol Lactate (Haldol Inj) 5 mg PRN Q6HRS PRN 03/06/20 22:00 03/09/20 14:35 5 MG Ketorolac Tromethamine (Toradol 30mg Vial) 30 mg STK-MED ONCE 03/06/20 17:05 03/06/20 17:05 DC Lidocaine (Lidoderm) 1 patch DAILY 03/09/20 09:00 03/09/20 09:33 1 PATCH Lorazepam (Ativan Inj) 4 mg PRN Q2HRS PRN 03/06/20 22:00 03/09/20 09:32 4 MG Methylprednisolone (Medrol) 32 mg 1X ONCE 03/06/20 19:30 03/06/20 19:31 DC 03/06/20 20:46 32 MG Metoclopramide HCl (Reglan Vial) 10 mg STK-MED ONCE 03/06/20 17:05 03/06/20 17:05 DC Miscellaneous (Lidoderm Patch Removal) 1 ea QHS 03/08/20 21:00 03/08/20 21:00 1 EA Nicotine (Nicoderm Cq 21mg) 1 patch DAILY 03/08/20 09:00 03/09/20 09:37 1 PATCH Nicotine Polacrilex (Nicorette Gum) 1 each PRN Q1HR PRN 03/08/20 09:00 03/09/20 14:17 1 EACH Nitrofurantoin Macrocrystals (Macrobid) 100 mg BID 03/08/20 21:00 03/09/20 09:33 100 MG Olanzapine (ZyPREXA IM) 10 mg PRN Q8HRS PRN 03/06/20 22:00 03/06/20 22:13 10 MG Ondansetron HCl (Zofran) 4 mg PRN Q6HRS PRN 03/06/20 22:00 03/08/20 16:23 4 MG Oxycodone/ Acetaminophen (Percocet 5/325) 1 tab PRN Q6HRS PRN 03/07/20 20:00 03/09/20 14:17 1 TAB Pantoprazole Sodium (Protonix) 40 mg DAILYAC 03/08/20 10:15 03/09/20 06:15 40 MG Sodium Chloride 1,000 ml @ 100 mls/hr Q10H 03/06/20 22:45 03/06/20 22:41 100 MLS/HR Allergies: Allergies: Coded Allergies: Penicillins (Verified Allergy, Severe, "I think I ", 03/06/20) Sulfa (Sulfonamide Antibiotics) (Verified Allergy, Severe, "I think I ", 03/06/20) Mental Status Examination: Mental Status Examination gentleman appears older than his stated age Cooperative but distracted Disoriented Denies suicidal or homicidal thoughts presently. Denies auditory or visual hallucinations No abnormal perception noted Mood is dysphoric Affect is dysthymic Insight and judgment impulse control are fair Attention span and concentration fair Recent and remote memory intac ROS: CONSTITUTIONAL: No fever or chills EYES: No recent changes SKIN: No rash or itching CARDIOVASCULAR: No chest pain, syncope, palpitations, or edema RESPIRATORY: No SOB or cough GASTROINTESTINAL: No nausea, vomiting or abdominal pain NEUROLOGICAL: No headaches or weakness ENDOCRINE: No cold or heat intolerance GENITOURINARY: No urgency or frequency of urination MUSCULOSKELETAL: No back pain or joint pain LYMPHATICS: No enlarged lymph nodes PSYCHIATRIC: No anxiety or depression Physical Exam: Refer to Physician's note. KNUCKLE BENDER: No focal deficit MSK: No EPS, TDK, or abnormal involuntary movements Vitals: Vitals Vital Signs Date Time Temp Pulse Resp B/P (MAP) Pulse Ox O2 Delivery O2 Flow Rate FiO2 03/09/20 14:48 98.0 84 16 110/70 (83) 96 Room Air 98.0 03/09/20 14:17 99.0 Labs: Labs Laboratory Tests Test 03/08/20 04:15 03/08/20 10:45 03/09/20 04:35 White Blood Count 7.2 x10^3/uL (4.0-11.0) 6.1 x10^3/uL (4.0-11.0) Red Blood Count 4.67 x10^6/uL (4.30-5.70) 4.49 x10^6/uL (4.30-5.70) Hemoglobin 13.2 g/dL (13.0-17.5) 12.6 g/dL (13.0-17.5) Hematocrit 39.2 % (39.0-53.0) 37.9 % (39.0-53.0) Mean Corpuscular Volume 84 fL (79-100) 84 fL (79-100) Mean Corpuscular Hemoglobin 28 pg (25-35) 28 pg (25-35) Mean Corpuscular Hemoglobin Concent 34 g/dL (31-37) 33 g/dL (31-37) Red Cell Distribution Width 15.1 % (11.5-14.5) 15.2 % (11.5-14.5) Platelet Count 250 x10^3/uL (140-400) 234 x10^3/uL (140-400) Neutrophils (%) (Auto) 64 % (31-73) 57 % (31-73) Lymphocytes (%) (Auto) 26 % (24-48) 28 % (24-48) Monocytes (%) (Auto) 6 % (0-9) 7 % (0-9) Eosinophils (%) (Auto) 4 % (0-3) 7 % (0-3) Basophils (%) (Auto) 0 % (0-3) 1 % (0-3) Neutrophils # (Auto) 4.6 x10^3/uL (1.8-7.7) 3.4 x10^3/uL (1.8-7.7) Lymphocytes # (Auto) 1.9 x10^3/uL (1.0-4.8) 1.7 x10^3/uL (1.0-4.8) Monocytes # (Auto) 0.4 x10^3/uL (0.0-1.1) 0.5 x10^3/uL (0.0-1.1) Eosinophils # (Auto) 0.3 x10^3/uL (0.0-0.7) 0.4 x10^3/uL (0.0-0.7) Basophils # (Auto) 0.0 x10^3/uL (0.0-0.2) 0.0 x10^3/uL (0.0-0.2) Sodium Level 141 mmol/L (136-145) 140 mmol/L (136-145) Potassium Level 3.8 mmol/L (3.5-5.1) 3.7 mmol/L (3.5-5.1) Chloride Level 103 mmol/L (98-107) 104 mmol/L (98-107) Carbon Dioxide Level 28 mmol/L (21-32) 28 mmol/L (21-32) Anion Gap 10 (6-14) 8 (6-14) Blood Urea Nitrogen 25 mg/dL (8-26) 19 mg/dL (8-26) Creatinine 0.9 mg/dL (0.7-1.3) 0.9 mg/dL (0.7-1.3) Estimated GFR (Cockcroft-Gault) 85.5 85.5 BUN/Creatinine Ratio 28 (6-20) 21 (6-20) Glucose Level 82 mg/dL (70-99) 117 mg/dL (70-99) Calcium Level 8.6 mg/dL (8.5-10.1) 8.6 mg/dL (8.5-10.1) Total Bilirubin 0.5 mg/dL (0.2-1.0) 0.3 mg/dL (0.2-1.0) Aspartate Amino Transf (AST/SGOT) 37 U/L (15-37) 27 U/L (15-37) Alanine Aminotransferase (ALT/SGPT) 23 U/L (16-63) 23 U/L (16-63) Alkaline Phosphatase 80 U/L (46-116) 80 U/L (46-116) Total Protein 6.6 g/dL (6.4-8.2) 6.3 g/dL (6.4-8.2) Albumin 3.0 g/dL (3.4-5.0) 3.0 g/dL (3.4-5.0) Albumin/Globulin Ratio 0.8 (1.0-1.7) 0.9 (1.0-1.7) Coronavirus (PCR) Not detected (Not Detected) SARS-CoV-2 Antigen (Rapid) Negative (NEGATIVE) Laboratory Tests Test 03/09/20 04:35 White Blood Count 6.1 x10^3/uL (4.0-11.0) Red Blood Count 4.49 x10^6/uL (4.30-5.70) Hemoglobin 12.6 g/dL (13.0-17.5) Hematocrit 37.9 % (39.0-53.0) Mean Corpuscular Volume 84 fL (79-100) Mean Corpuscular Hemoglobin 28 pg (25-35) Mean Corpuscular Hemoglobin Concent 33 g/dL (31-37) Red Cell Distribution Width 15.2 % (11.5-14.5) Platelet Count 234 x10^3/uL (140-400) Neutrophils (%) (Auto) 57 % (31-73) Lymphocytes (%) (Auto) 28 % (24-48) Monocytes (%) (Auto) 7 % (0-9) Eosinophils (%) (Auto) 7 % (0-3) Basophils (%) (Auto) 1 % (0-3) Neutrophils # (Auto) 3.4 x10^3/uL (1.8-7.7) Lymphocytes # (Auto) 1.7 x10^3/uL (1.0-4.8) Monocytes # (Auto) 0.5 x10^3/uL (0.0-1.1) Eosinophils # (Auto) 0.4 x10^3/uL (0.0-0.7) Basophils # (Auto) 0.0 x10^3/uL (0.0-0.2) Sodium Level 140 mmol/L (136-145) Potassium Level 3.7 mmol/L (3.5-5.1) Chloride Level 104 mmol/L (98-107) Carbon Dioxide Level 28 mmol/L (21-32) Anion Gap 8 (6-14) Blood Urea Nitrogen 19 mg/dL (8-26) Creatinine 0.9 mg/dL (0.7-1.3) Estimated GFR (Cockcroft-Gault) 85.5 BUN/Creatinine Ratio 21 (6-20) Glucose Level 117 mg/dL (70-99) Calcium Level 8.6 mg/dL (8.5-10.1) Total Bilirubin 0.3 mg/dL (0.2-1.0) Aspartate Amino Transf (AST/SGOT) 27 U/L (15-37) Alanine Aminotransferase (ALT/SGPT) 23 U/L (16-63) Alkaline Phosphatase 80 U/L (46-116) Total Protein 6.3 g/dL (6.4-8.2) Albumin 3.0 g/dL (3.4-5.0) Albumin/Globulin Ratio 0.9 (1.0-1.7) Diagnosis: Diagnosis: Acute delirium, likely multifactorial, hyperactive Major depressive disorder, recurrent, severe without psychotic features. Generalized anxiety disorder. PTSD. . Assessment: He is a well-educated gentleman with history of multiple psychiatric comorbidities who was on methadone treatment admitted with intractable back pain and suicidality. His suicidality likely correlates with his pain severity. Adamantly denies any suicidal thoughts when not in pain. However, he is no intentions to . Intent is reportedly 0. 03/09/2020. Patient appear not more disturbed, disoriented and having behavioral issues. Plan: Add Zyprexa 5 mg twice daily for the resolution of delirium and behavioral disturbances. Continue hospitalization for safety and crisis stabilization. Psychoeducation provided. Supportive psychotherapy provided. Continue outpatient medications including psychotropics as is. Risk, benefits, alternatives of the treatment are discussed. Adverse drug reaction of the medications are also discussed CHRISTO MENSAH MD Mar 09, 2020 17:08
[2020-03-09 19:20] VITALS: BP 114/73
[2020-03-09] MEDS: PATCH REMOVAL. MC SCH (21:00)
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
[2020-03-09] MEDS ORDERED: HALOPERIDOL LACTATE 5 MG/ML VIAL. IM ONE (22:00)
[2020-03-09 22:37] VITALS: BP 128/84
--- NOTE | 2020-03-09 23:20 | NUR ---
Patient was refusing to stay in room and continued to walk in the hallway and stated he was going to find his way out to go home. Stacey Lazaro was called again on the patiet. Patient took off walking to [address] where he tried to take off through the fire stairwell, RN grabbed the door and closed it. Patient proceeded back down the [place] to [address] and security showed up to subdue patient and to redirect to his room. Patient was told that if he refused to stay in the bed then the next thing to do is to apply 4 point restraints. Patient continued to try and get of bed and to leave the room. Security was holding patient when patient threw himself on the ground at that time. Security stated to call another stacey lazaro at [id number]. That is when 4 point restraints were applied to patient and more medication was administered. Addendum: 03/10/20 at 0542 by VAISHALI SIMMONS RN MD aware of patient throwing himself on the floor and hitting knee causing a bump on the right knee.
[2020-03-10] VITALS (8 sets, daily range): BP systolic 103–141; BP diastolic 65–99
--- NOTE | 2020-03-10 00:15 | NUR ---
and Forming Press Operator Missy was notified of the restraints that were placed on the patient and an order for restraints was given at that time. MD facetimed with the patient to explain why he was in restraints and that he would be further evaluated in the morning.
[2020-03-10] MEDS: OLANZapine IM 10 MG VIAL. IM PRN (00:17)
[2020-03-10] MEDS: diphenhydrAMINE ORAL ELIXIR 12.5 MG/5 ML ML PO PRN ×3 (02:37→21:14)
[2020-03-10] MEDS ORDERED: MIDAZOLAM HCL/PF 2 MG/2 ML VIAL. IV ONE (05:30)
[2020-03-10] MEDS: IV NORMAL SALINE 1000ML BAG 1,000 ML IV SCH ×2 (06:45→13:24)
--- NOTE | 2020-03-10 07:04 | EKG ---
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
[2020-03-10 08:12] LABS: BASO % 0 % (0-3); EOS # 3.7 x10^3/uL (0.0-0.7); EOS % 26 % (0-3); HEMATOCRIT 41.4 % (39.0-53.0); HEMOGLOBIN 13.7 g/dL (13.0-17.5); LYMPH # 1.3 x10^3/uL (1.0-4.8); LYMPH % 9 % (24-48); MEAN CORPUSCULAR HEMOGLOBIN 28 pg (25-35); MEAN CORPUSCULAR HGB CONC 33 g/dL (31-37); MEAN CORPUSCULAR VOLUME 84 fL (79-100); MONO # 0.9 x10^3/uL (0.0-1.1); MONO % 6 % (0-9); NEUT # 8.5 x10^3/uL (1.8-7.7); NEUT % 59 % (31-73); PLATELET COUNT 265 x10^3/uL (140-400); RED BLOOD COUNT 4.91 x10^6/uL (4.30-5.70); RED CELL DISTRIBUTION WIDTH 15.2 % (11.5-14.5); WHITE BLOOD COUNT 14.5 x10^3/uL (4.0-11.0)
[2020-03-10 08:44] LABS: ALBUMIN 3.7 g/dL (3.4-5.0); CALCIUM 9.3 mg/dL (8.5-10.1); GFR 75.7; POTASSIUM 3.7 mmol/L (3.5-5.1); TOTAL BILIRUBIN 0.7 mg/dL (0.2-1.0); TOTAL PROTEIN 7.4 g/dL (6.4-8.2)
[2020-03-10] MEDS: oxyCODONE/APAP 5/325 1 TAB TABLET PO PRN (08:45)
[2020-03-10] MEDS: PANTOPRAZOLE 40 MG TABLET.DR. PO SCH (08:45)
[2020-03-10] MEDS: LIDOCAINE (700MG/PATCH) PATCH. TD SCH ×2 (08:46→08:48)
--- NOTE | 2020-03-10 10:43 | PDOC ---
PROGRESS NOTES Date of Service: DATE: 03/10/20 TIME: 10:41 Chief Complaint Chief Complaint impression ======= Flank pain wall thickening of the visualized distal esophagus, could be due to esophagitis, cannot accurately exclude underlying mass. There is small hiatal hernia. Mild wall thickening of the distal thoracic esophagus could reflect esophagitis in setting of a moderate sized hiatal hernia.on UGI 03/10 MAJOR DEPRESSION WITH SI Tobacco abuse NO MICROHEMATURIA Advanced multilevel lumbar spondylosis with rightward curvature. 03/10 agitated overnight, now in 4 pt restraints plan consult psych, try transfer to [facility] TODAY gi consult PT/OT Consult dr lazaro PAIN CONTROL 37 min pt exam, chart review, > 50% of time spent with exam, chart review, pt care coordination 64-year-old male well on high dose methadone FOR BACK PAIN . 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 presents with abdominal pain. We are concerned he could have kidney stone. We tried to scan him in the ER, but he could not sit still. Then he explained to the nurses that he was suicidal. He got a little agitated. We had to call security. Now we have given some Ativan and Haldol in the ER, he is calm NOW admit the patient. PAST MEDICAL HISTORY: Anxiety, depression, PTSD, chronic pain, narcotic dependence. I suspect he may have done heroin in the past, but I am not clear on that. Bone graft, left liver surgery, current tobacco abuse. ALLERGIES: PENICILLIN AND SULFA. FAMILY HISTORY: Coronary disease. SOCIAL HISTORY: He smokes and drinks. No drugs other than methadone currently. History of Present Illness History of Present Illness 03/09/2020 Patient seen and examined WALKING IN [place] WITH pt NAD Advanced multilevel lumbar spondylosis with rightward curvature. Discussed with RN Chart reviewed Tox screen was positive for methadone Continue PRN sedatives 1:1 observation Await Psych Discharge disposition pending PAT CONSULT ugi today discussed DPOA NEED 12 MIN D/W RN Patient was complaining of abdominal pain, kidney stone and demonstrated suicidal ideation ON ADMIT Vitals Vitals Vital Signs Date Time Temp Pulse Resp B/P (MAP) Pulse Ox O2 Delivery O2 Flow Rate FiO2 03/10/20 09:53 18 96 Room Air 03/10/20 07:00 98.4 87 113/82 (92) 98.4 03/09/20 14:17 99.0 Physical Exam Physical Exam IN 4 PT RESTRAINTS General: Alert, Oriented X3, Cooperative, No acute distress Heart: Regular rate, Normal S1 Lungs: Clear Abdomen: Normal bowel sounds, Soft, Other (flank pain) Extremities: No clubbing, No cyanosis, No edema Skin: No rashes Labs LABS LUMBAR SPINE MIN 4V History: Reason: severe back pain / Spl. Instructions: / History: Technique: 5 views lumbar spine Comparison: CT March 06, 2020 Findings: Moderately curvature of the lumbar spine centered at L2. Chronic appearing L4 compression deformity. No fracture. Advanced multilevel degenerative disc changes most prominent L1-L2, L2-L3 and L3-L4. Impression: 1. Advanced multilevel lumbar spondylosis with rightward curvature. Electronically signed by: Adin Portillo DO (03/09/2020 3:26 PM) [facility] DICTATED and SIGNED BY: ADIN PORTILLO DO DATE: 03/09/20 1526 Thoracic esophagram INDICATION: 64-year-old man with incidental esophageal wall thickening identified on recent CT obtained for right flank pain. COMPARISON: Abdomen pelvis CT without IV contrast 03/06/2020. TECHNIQUE AND FINDINGS: Right lateral, RPO and PA views of the thoracic esophagus in the recumbent position obtained with fluoroscopy. Five image series were acquired. Total fluoroscopy time was 2.3 minutes. Patient arrives in the radiology imaging suite unable to stand upright due to discomfort in his back. Even with positioning on his side on the fluoroscopy table, it is with great difficulty that he transiently emerges from the position. The images we were able to acquire of his thoracic esophagus reveal a moderate size hiatal hernia and some nonpropulsive contractions. There is no obvious esophageal mucosal fold thickening but there is mild thickening of the lower esophageal sphincter. No diverticuli. No retained esophageal contents. Patient was unable to cooperate with evaluation for reflux. IMPRESSION: Mild wall thickening of the distal thoracic esophagus could reflect esophagitis in setting of a moderate sized hiatal hernia. Examination is limited due to patient's discomfort and general immobility. Electronically signed by: Trey aBbin MD (03/09/2020 3:49 PM) [id number] DICTATED and SIGNED BY: TREY BABIN MD DATE: 03/09/20 1549 Laboratory Tests Test 03/10/20 07:05 White Blood Count 14.5 x10^3/uL (4.0-11.0) Red Blood Count 4.91 x10^6/uL (4.30-5.70) Hemoglobin 13.7 g/dL (13.0-17.5) Hematocrit 41.4 % (39.0-53.0) Mean Corpuscular Volume 84 fL (79-100) Mean Corpuscular Hemoglobin 28 pg (25-35) Mean Corpuscular Hemoglobin Concent 33 g/dL (31-37) Red Cell Distribution Width 15.2 % (11.5-14.5) Platelet Count 265 x10^3/uL (140-400) Neutrophils (%) (Auto) 59 % (31-73) Lymphocytes (%) (Auto) 9 % (24-48) Monocytes (%) (Auto) 6 % (0-9) Eosinophils (%) (Auto) 26 % (0-3) Basophils (%) (Auto) 0 % (0-3) Neutrophils # (Auto) 8.5 x10^3/uL (1.8-7.7) Lymphocytes # (Auto) 1.3 x10^3/uL (1.0-4.8) Monocytes # (Auto) 0.9 x10^3/uL (0.0-1.1) Eosinophils # (Auto) 3.7 x10^3/uL (0.0-0.7) Basophils # (Auto) 0.0 x10^3/uL (0.0-0.2) Sodium Level 141 mmol/L (136-145) Potassium Level 3.7 mmol/L (3.5-5.1) Chloride Level 103 mmol/L (98-107) Carbon Dioxide Level 28 mmol/L (21-32) Anion Gap 10 (6-14) Blood Urea Nitrogen 16 mg/dL (8-26) Creatinine 1.0 mg/dL (0.7-1.3) Estimated GFR (Cockcroft-Gault) 75.7 BUN/Creatinine Ratio 16 (6-20) Glucose Level 112 mg/dL (70-99) Calcium Level 9.3 mg/dL (8.5-10.1) Total Bilirubin 0.7 mg/dL (0.2-1.0) Aspartate Amino Transf (AST/SGOT) 36 U/L (15-37) Alanine Aminotransferase (ALT/SGPT) 27 U/L (16-63) Alkaline Phosphatase 99 U/L (46-116) Total Protein 7.4 g/dL (6.4-8.2) Albumin 3.7 g/dL (3.4-5.0) Albumin/Globulin Ratio 1.0 (1.0-1.7) Assessment and Plan Assessmemt and Plan Problems Medical Problems: (1) Degenerative disc disease, lumbar Status: Acute (2) Intractable back pain Status: Acute (3) Suicidal behavior Status: Acute Comment Review of Relevant I have reviewed the following items laura (where applicable) has been applied. Labs Laboratory Tests Test 03/08/20 10:45 03/09/20 04:35 03/10/20 07:05 Coronavirus (PCR) Not detected (Not Detected) SARS-CoV-2 Antigen (Rapid) Negative (NEGATIVE) White Blood Count 6.1 x10^3/uL (4.0-11.0) 14.5 x10^3/uL (4.0-11.0) Red Blood Count 4.49 x10^6/uL (4.30-5.70) 4.91 x10^6/uL (4.30-5.70) Hemoglobin 12.6 g/dL (13.0-17.5) 13.7 g/dL (13.0-17.5) Hematocrit 37.9 % (39.0-53.0) 41.4 % (39.0-53.0) Mean Corpuscular Volume 84 fL (79-100) 84 fL (79-100) Mean Corpuscular Hemoglobin 28 pg (25-35) 28 pg (25-35) Mean Corpuscular Hemoglobin Concent 33 g/dL (31-37) 33 g/dL (31-37) Red Cell Distribution Width 15.2 % (11.5-14.5) 15.2 % (11.5-14.5) Platelet Count 234 x10^3/uL (140-400) 265 x10^3/uL (140-400) Neutrophils (%) (Auto) 57 % (31-73) 59 % (31-73) Lymphocytes (%) (Auto) 28 % (24-48) 9 % (24-48) Monocytes (%) (Auto) 7 % (0-9) 6 % (0-9) Eosinophils (%) (Auto) 7 % (0-3) 26 % (0-3) Basophils (%) (Auto) 1 % (0-3) 0 % (0-3) Neutrophils # (Auto) 3.4 x10^3/uL (1.8-7.7) 8.5 x10^3/uL (1.8-7.7) Lymphocytes # (Auto) 1.7 x10^3/uL (1.0-4.8) 1.3 x10^3/uL (1.0-4.8) Monocytes # (Auto) 0.5 x10^3/uL (0.0-1.1) 0.9 x10^3/uL (0.0-1.1) Eosinophils # (Auto) 0.4 x10^3/uL (0.0-0.7) 3.7 x10^3/uL (0.0-0.7) Basophils # (Auto) 0.0 x10^3/uL (0.0-0.2) 0.0 x10^3/uL (0.0-0.2) Sodium Level 140 mmol/L (136-145) 141 mmol/L (136-145) Potassium Level 3.7 mmol/L (3.5-5.1) 3.7 mmol/L (3.5-5.1) Chloride Level 104 mmol/L (98-107) 103 mmol/L (98-107) Carbon Dioxide Level 28 mmol/L (21-32) 28 mmol/L (21-32) Anion Gap 8 (6-14) 10 (6-14) Blood Urea Nitrogen 19 mg/dL (8-26) 16 mg/dL (8-26) Creatinine 0.9 mg/dL (0.7-1.3) 1.0 mg/dL (0.7-1.3) Estimated GFR (Cockcroft-Gault) 85.5 75.7 BUN/Creatinine Ratio 21 (6-20) 16 (6-20) Glucose Level 117 mg/dL (70-99) 112 mg/dL (70-99) Calcium Level 8.6 mg/dL (8.5-10.1) 9.3 mg/dL (8.5-10.1) Total Bilirubin 0.3 mg/dL (0.2-1.0) 0.7 mg/dL (0.2-1.0) Aspartate Amino Transf (AST/SGOT) 27 U/L (15-37) 36 U/L (15-37) Alanine Aminotransferase (ALT/SGPT) 23 U/L (16-63) 27 U/L (16-63) Alkaline Phosphatase 80 U/L (46-116) 99 U/L (46-116) Total Protein 6.3 g/dL (6.4-8.2) 7.4 g/dL (6.4-8.2) Albumin 3.0 g/dL (3.4-5.0) 3.7 g/dL (3.4-5.0) Albumin/Globulin Ratio 0.9 (1.0-1.7) 1.0 (1.0-1.7) Laboratory Tests Test 03/10/20 07:05 White Blood Count 14.5 x10^3/uL (4.0-11.0) Red Blood Count 4.91 x10^6/uL (4.30-5.70) Hemoglobin 13.7 g/dL (13.0-17.5) Hematocrit 41.4 % (39.0-53.0) Mean Corpuscular Volume 84 fL (79-100) Mean Corpuscular Hemoglobin 28 pg (25-35) Mean Corpuscular Hemoglobin Concent 33 g/dL (31-37) Red Cell Distribution Width 15.2 % (11.5-14.5) Platelet Count 265 x10^3/uL (140-400) Neutrophils (%) (Auto) 59 % (31-73) Lymphocytes (%) (Auto) 9 % (24-48) Monocytes (%) (Auto) 6 % (0-9) Eosinophils (%) (Auto) 26 % (0-3) Basophils (%) (Auto) 0 % (0-3) Neutrophils # (Auto) 8.5 x10^3/uL (1.8-7.7) Lymphocytes # (Auto) 1.3 x10^3/uL (1.0-4.8) Monocytes # (Auto) 0.9 x10^3/uL (0.0-1.1) Eosinophils # (Auto) 3.7 x10^3/uL (0.0-0.7) Basophils # (Auto) 0.0 x10^3/uL (0.0-0.2) Sodium Level 141 mmol/L (136-145) Potassium Level 3.7 mmol/L (3.5-5.1) Chloride Level 103 mmol/L (98-107) Carbon Dioxide Level 28 mmol/L (21-32) Anion Gap 10 (6-14) Blood Urea Nitrogen 16 mg/dL (8-26) Creatinine 1.0 mg/dL (0.7-1.3) Estimated GFR (Cockcroft-Gault) 75.7 BUN/Creatinine Ratio 16 (6-20) Glucose Level 112 mg/dL (70-99) Calcium Level 9.3 mg/dL (8.5-10.1) Total Bilirubin 0.7 mg/dL (0.2-1.0) Aspartate Amino Transf (AST/SGOT) 36 U/L (15-37) Alanine Aminotransferase (ALT/SGPT) 27 U/L (16-63) Alkaline Phosphatase 99 U/L (46-116) Total Protein 7.4 g/dL (6.4-8.2) Albumin 3.7 g/dL (3.4-5.0) Albumin/Globulin Ratio 1.0 (1.0-1.7) Microbiology 03/06/20 Urine Culture - Final, Complete 03/06/20 Antimicrobic Susceptibility - Final, Complete Medications Current Medications Ketorolac Tromethamine (Toradol 30mg Vial) 30 mg 1X ONCE IVP Last administered on 03/06/20at 17:07; Start 03/06/20 at 17:00; Stop 03/06/20 at 17:04; Status DC Metoclopramide HCl (Reglan Vial) 10 mg 1X ONCE IVP Last administered on 03/06/20at 17:07; Start 03/06/20 at 17:00; Stop 03/06/20 at 17:04; Status DC Sodium Chloride 1,000 ml @ 1,000 mls/hr 1X ONCE IV Last administered on 03/06/20at 17:07; Start 03/06/20 at 17:00; Stop 03/06/20 at 17:59; Status DC Metoclopramide HCl (Reglan Vial) 10 mg STK-MED ONCE .ROUTE ; Start 03/06/20 at 17:05; Stop 03/06/20 at 17:05; Status DC Ketorolac Tromethamine (Toradol 30mg Vial) 30 mg STK-MED ONCE .ROUTE ; Start 03/06/20 at 17:05; Stop 03/06/20 at 17:05; Status DC Haloperidol Lactate (Haldol Inj) 5 mg STK-MED ONCE .ROUTE ; Start 03/06/20 at 17:32; Stop 03/06/20 at 17:32; Status DC Lorazepam (Ativan Inj) 2 mg STK-MED ONCE .ROUTE ; Start 03/06/20 at 17:34; Stop 03/06/20 at 17:35; Status DC Diphenhydramine HCl (Benadryl) 50 mg 1X ONCE IVP ; Start 03/06/20 at 17:45; Stop 03/06/20 at 17:46; Status DC Haloperidol (Haldol) 5 mg 1X PRN PO AGITATION; Start 03/06/20 at 17:45; Status Cancel Lorazepam (Ativan Inj) 2 mg 1X ONCE IVP Last administered on 03/06/20at 17:51; Start 03/06/20 at 17:45; Stop 03/06/20 at 17:48; Status DC Fentanyl Citrate (Fentanyl 2ml Vial) 50 mcg 1X ONCE IVP Last administered on 03/06/20at 17:53; Start 03/06/20 at 17:45; Stop 03/06/20 at 17:48; Status DC Lorazepam (Ativan Inj) 2 mg 1X ONCE IVP Last administered on 03/06/20at 17:52; Start 03/06/20 at 18:00; Stop 03/06/20 at 18:01; Status DC Haloperidol Lactate (Haldol Inj) 5 mg 1X ONCE IVP ; Start 03/06/20 at 18:00; Stop 03/06/20 at 17:56; Status DC Haloperidol Lactate (Haldol Inj) 5 mg 1X ONCE IVP Last administered on 03/06/20at 17:55; Start 03/06/20 at 18:00; Stop 03/06/20 at 18:01; Status DC Methylprednisolone (Medrol) 32 mg 1X ONCE PO Last administered on 03/06/20at 20:46; Start 03/06/20 at 19:30; Stop 03/06/20 at 19:31; Status DC Ondansetron HCl (Zofran) 4 mg PRN Q8HRS PRN IV NAUSEA/VOMITING; Start 03/06/20 at 21:15; Stop 03/07/20 at 21:14; Status DC Lorazepam (Ativan Inj) 4 mg PRN Q2HRS PRN IVP ANXIETY. Last administered on 03/10/20 01:33; Start 03/06/20 at 22:00 Haloperidol Lactate (Haldol Inj) 5 mg PRN Q6HRS PRN IVP AGITATION Last administered on 03/09/20 14:35; Start 03/06/20 at 22:00 Ondansetron HCl (Zofran) 4 mg PRN Q6HRS PRN IVP NAUSEA/VOMITING Last administered on 03/08/20 16:23; Start 03/06/20 at 22:00 Olanzapine (ZyPREXA IM) 10 mg PRN Q8HRS PRN IM agitation Last administered on 03/10/20 00:17; Start 03/06/20 at 22:00 Sodium Chloride 1,000 ml @ 100 mls/hr Q10H IV Last administered on 03/06/20 22:41; Start 03/06/20 at 22:45 Dicyclomine HCl (Bentyl) 10 mg PRN QID PRN PO ABDOMINAL PAIN Last administered on 03/07/20 19:43; Start 03/07/20 at 19:30 Cyclobenzaprine HCl (Flexeril) 10 mg PRN TID PRN PO MUSCLE SPASMS Last administered on 03/09/20at 06:15; Start 03/07/20 at 20:00 Oxycodone/ Acetaminophen (Percocet 5/325) 1 tab PRN Q6HRS PRN PO PAIN Last administered on 03/10/20 08:45; Start 03/07/20 at 20:00 Nicotine (Nicoderm Cq 21mg) 1 patch DAILY TD Last administered on 03/09/20 09:37; Start 03/08/20 at 09:00 Nicotine Polacrilex (Nicorette Gum) 1 each PRN Q1HR PRN BC SMOKING CESSATION La st administered on 03/09/20at 19:30; Start 03/08/20 at 09:00 Pantoprazole Sodium (Protonix) 40 mg DAILYAC PO Last administered on 03/10/20at 08:45; Start 03/08/20 at 10:15 Lidocaine (Lidoderm) 1 patch DAILY TD Last administered on 03/09/20at 09:33; Start 03/09/20 at 09:00 Miscellaneous (Lidoderm Patch Removal) 1 ea QHS MC Last administered on 03/09/20at 21:00; Start 03/08/20 at 21:00 Nitrofurantoin Macrocrystals (Macrobid) 100 mg BID PO Last administered on 03/09/20at 21:49; Start 03/08/20 at 21:00 Barium Sulfate (Polibar Acb) 397 gm 1X ONCE RI ; Start 03/09/20 at 09:30; Stop 03/09/20 at 09:31; Status DC Haloperidol Lactate (Haldol Inj) 10 mg 1X ONCE IM Last administered on 03/09/20at 21:50; Start 03/09/20 at 22:00; Stop 03/09/20 at 22:01; Status DC Diphenhydramine HCl (Benadryl Oral Elixir) 25 mg PRN Q4HRS PRN PO ITCHING Last administered on 03/10/20at 02:37; Start 03/10/20 at 02:30 Midazolam HCl (Versed) 2 mg 1X ONCE IV ; Start 03/10/20 at 05:30; Stop 03/10/20 at 05:40; Status DC Ziprasidone (Geodon Im) 10 mg PRN Q2HR PRN IM AGITATION; Start 03/10/20 at 06:15 Vitals/I & O Vital Sign - Last 24 Hours 03/09/20 03/09/20 03/09/20 03/09/20 11:11 14:17 14:48 19:20 Temp 97.9 98.0 98.6 97.9 98.0 98.6 Pulse 95 84 112 Resp 20 16 20 B/P (MAP) 125/93 (104) 110/70 (83) 114/73 (87) Pulse Ox 94 94 96 94 O2 Delivery Room Air Room Air Room Air Room Air O2 Flow Rate 99.0 03/09/20 03/09/20 03/09/20 03/10/20 19:30 22:37 22:59 00:10 Temp 98.4 98 98.4 Pulse 100 82 Resp 18 18 B/P (MAP) 128/84 (99) Pulse Ox 92 O2 Delivery Room Air Room Air Room Air 03/10/20 03/10/20 03/10/20 03/10/20 00:20 03:10 03:15 05:10 Temp 98.0 98 98.4 98.2 98.0 98.4 98.2 Pulse 82 75 75 86 Resp 18 18 18 B/P (MAP) 111/69 (83) 141/92 (108) 103/65 (78) Pulse Ox 97 97 96 O2 Delivery Room Air Room Air Room Air 03/10/20 03/10/20 03/10/20 03/10/20 05:10 07:00 07:52 08:45 Temp 98 98.4 98.4 Pulse 86 87 Resp 18 16 18 B/P (MAP) 113/82 (92) Pulse Ox 96 96 O2 Delivery Room Air Room Air Room Air 03/10/20 09:53 Resp 18 Pulse Ox 96 O2 Delivery Room Air Intake and Output 03/09/20 03/09/20 03/10/20 15:00 23:00 07:00 Intake Total 180 ml 0 ml Output Total 175 ml Balance 180 ml -175 ml Justicifation of Admission Dx: Justifications for Admission: Justification of Admission Dx: Yes ROSA MARIA ULLOA MD Mar 10, 2020 10:43
--- NOTE | 2020-03-10 10:50 | NUR ---
Patient is not currently on restraints, staff is giving patient a trial run to see if patient is safe to not have restraints on, will continue to monitor.
--- NOTE | 2020-03-10 11:14 | PDOC ---
PROGRESS NOTES Date of Service DATE: 03/10/20 TIME: 11:11 Subjective Subjective No new complaints. Objective Objective Vital Signs Date Time Temp Pulse Resp B/P (MAP) Pulse Ox O2 Delivery O2 Flow Rate FiO2 03/10/20 09:53 18 96 Room Air 03/10/20 07:00 98.4 87 113/82 (92) 98.4 03/09/20 14:17 99.0 Intake and Output 03/10/20 07:00 Intake Total 180 ml Output Total 175 ml Balance 5 ml Intake Oral 180 ml Output Urine Total 175 ml # Voids 10 # Bowel Movements 2 Physical Exam Physical Exam He is sitting at edge of bed and he continues to get up and walk in hallway with roller walker with bent over posture and tenderness to palpation over left lower thoracic and lumbar paraspinal muslces and sacroiliac joints. Assessment Assessment Problems Medical Problems: (1) Degenerative disc disease, lumbar Status: Acute (2) Intractable back pain Status: Acute (3) Suicidal behavior Status: Acute Plan Plan of Care Agree with plans for placement when arrangements are completed. Comment Review of Relevant I have reviewed the following items laura (where applicable) has been applied. Labs Laboratory Tests Test 03/09/20 04:35 03/10/20 07:05 White Blood Count 6.1 x10^3/uL (4.0-11.0) 14.5 x10^3/uL (4.0-11.0) Red Blood Count 4.49 x10^6/uL (4.30-5.70) 4.91 x10^6/uL (4.30-5.70) Hemoglobin 12.6 g/dL (13.0-17.5) 13.7 g/dL (13.0-17.5) Hematocrit 37.9 % (39.0-53.0) 41.4 % (39.0-53.0) Mean Corpuscular Volume 84 fL (79-100) 84 fL (79-100) Mean Corpuscular Hemoglobin 28 pg (25-35) 28 pg (25-35) Mean Corpuscular Hemoglobin Concent 33 g/dL (31-37) 33 g/dL (31-37) Red Cell Distribution Width 15.2 % (11.5-14.5) 15.2 % (11.5-14.5) Platelet Count 234 x10^3/uL (140-400) 265 x10^3/uL (140-400) Neutrophils (%) (Auto) 57 % (31-73) 59 % (31-73) Lymphocytes (%) (Auto) 28 % (24-48) 9 % (24-48) Monocytes (%) (Auto) 7 % (0-9) 6 % (0-9) Eosinophils (%) (Auto) 7 % (0-3) 26 % (0-3) Basophils (%) (Auto) 1 % (0-3) 0 % (0-3) Neutrophils # (Auto) 3.4 x10^3/uL (1.8-7.7) 8.5 x10^3/uL (1.8-7.7) Lymphocytes # (Auto) 1.7 x10^3/uL (1.0-4.8) 1.3 x10^3/uL (1.0-4.8) Monocytes # (Auto) 0.5 x10^3/uL (0.0-1.1) 0.9 x10^3/uL (0.0-1.1) Eosinophils # (Auto) 0.4 x10^3/uL (0.0-0.7) 3.7 x10^3/uL (0.0-0.7) Basophils # (Auto) 0.0 x10^3/uL (0.0-0.2) 0.0 x10^3/uL (0.0-0.2) Sodium Level 140 mmol/L (136-145) 141 mmol/L (136-145) Potassium Level 3.7 mmol/L (3.5-5.1) 3.7 mmol/L (3.5-5.1) Chloride Level 104 mmol/L (98-107) 103 mmol/L (98-107) Carbon Dioxide Level 28 mmol/L (21-32) 28 mmol/L (21-32) Anion Gap 8 (6-14) 10 (6-14) Blood Urea Nitrogen 19 mg/dL (8-26) 16 mg/dL (8-26) Creatinine 0.9 mg/dL (0.7-1.3) 1.0 mg/dL (0.7-1.3) Estimated GFR (Cockcroft-Gault) 85.5 75.7 BUN/Creatinine Ratio 21 (6-20) 16 (6-20) Glucose Level 117 mg/dL (70-99) 112 mg/dL (70-99) Calcium Level 8.6 mg/dL (8.5-10.1) 9.3 mg/dL (8.5-10.1) Total Bilirubin 0.3 mg/dL (0.2-1.0) 0.7 mg/dL (0.2-1.0) Aspartate Amino Transf (AST/SGOT) 27 U/L (15-37) 36 U/L (15-37) Alanine Aminotransferase (ALT/SGPT) 23 U/L (16-63) 27 U/L (16-63) Alkaline Phosphatase 80 U/L (46-116) 99 U/L (46-116) Total Protein 6.3 g/dL (6.4-8.2) 7.4 g/dL (6.4-8.2) Albumin 3.0 g/dL (3.4-5.0) 3.7 g/dL (3.4-5.0) Albumin/Globulin Ratio 0.9 (1.0-1.7) 1.0 (1.0-1.7) Laboratory Tests Test 03/10/20 07:05 White Blood Count 14.5 x10^3/uL (4.0-11.0) Red Blood Count 4.91 x10^6/uL (4.30-5.70) Hemoglobin 13.7 g/dL (13.0-17.5) Hematocrit 41.4 % (39.0-53.0) Mean Corpuscular Volume 84 fL (79-100) Mean Corpuscular Hemoglobin 28 pg (25-35) Mean Corpuscular Hemoglobin Concent 33 g/dL (31-37) Red Cell Distribution Width 15.2 % (11.5-14.5) Platelet Count 265 x10^3/uL (140-400) Neutrophils (%) (Auto) 59 % (31-73) Lymphocytes (%) (Auto) 9 % (24-48) Monocytes (%) (Auto) 6 % (0-9) Eosinophils (%) (Auto) 26 % (0-3) Basophils (%) (Auto) 0 % (0-3) Neutrophils # (Auto) 8.5 x10^3/uL (1.8-7.7) Lymphocytes # (Auto) 1.3 x10^3/uL (1.0-4.8) Monocytes # (Auto) 0.9 x10^3/uL (0.0-1.1) Eosinophils # (Auto) 3.7 x10^3/uL (0.0-0.7) Basophils # (Auto) 0.0 x10^3/uL (0.0-0.2) Sodium Level 141 mmol/L (136-145) Potassium Level 3.7 mmol/L (3.5-5.1) Chloride Level 103 mmol/L (98-107) Carbon Dioxide Level 28 mmol/L (21-32) Anion Gap 10 (6-14) Blood Urea Nitrogen 16 mg/dL (8-26) Creatinine 1.0 mg/dL (0.7-1.3) Estimated GFR (Cockcroft-Gault) 75.7 BUN/Creatinine Ratio 16 (6-20) Glucose Level 112 mg/dL (70-99) Calcium Level 9.3 mg/dL (8.5-10.1) Total Bilirubin 0.7 mg/dL (0.2-1.0) Aspartate Amino Transf (AST/SGOT) 36 U/L (15-37) Alanine Aminotransferase (ALT/SGPT) 27 U/L (16-63) Alkaline Phosphatase 99 U/L (46-116) Total Protein 7.4 g/dL (6.4-8.2) Albumin 3.7 g/dL (3.4-5.0) Albumin/Globulin Ratio 1.0 (1.0-1.7) Microbiology 03/06/20 Urine Culture - Final, Complete 03/06/20 Antimicrobic Susceptibility - Final, Complete Medications Current Medications Ketorolac Tromethamine (Toradol 30mg Vial) 30 mg 1X ONCE IVP Last administered on 03/06/20at 17:07; Start 03/06/20 at 17:00; Stop 03/06/20 at 17:04; Status DC Metoclopramide HCl (Reglan Vial) 10 mg 1X ONCE IVP Last administered on 03/06/20at 17:07; Start 03/06/20 at 17:00; Stop 8/25/20 at 17:04; Status DC Sodium Chloride 1,000 ml @ 1,000 mls/hr 1X ONCE IV Last administered on 03/06/20at 17:07; Start 03/06/20 at 17:00; Stop 03/06/20 at 17:59; Status DC Metoclopramide HCl (Reglan Vial) 10 mg STK-MED ONCE .ROUTE ; Start 03/06/20 at 17:05; Stop 03/06/20 at 17:05; Status DC Ketorolac Tromethamine (Toradol 30mg Vial) 30 mg STK-MED ONCE .ROUTE ; Start 03/06/20 at 17:05; Stop 03/06/20 at 17:05; Status DC Haloperidol Lactate (Haldol Inj) 5 mg STK-MED ONCE .ROUTE ; Start 03/06/20 at 17:32; Stop 03/06/20 at 17:32; Status DC Lorazepam (Ativan Inj) 2 mg STK-MED ONCE .ROUTE ; Start 03/06/20 at 17:34; Stop 03/06/20 at 17:35; Status DC Diphenhydramine HCl (Benadryl) 50 mg 1X ONCE IVP ; Start 03/06/20 at 17:45; Stop 03/06/20 at 17:46; Status DC Haloperidol (Haldol) 5 mg 1X PRN PO AGITATION; Start 03/06/20 at 17:45; Status Cancel Lorazepam (Ativan Inj) 2 mg 1X ONCE IVP Last administered on 03/06/20at 17:51; Start 03/06/20 at 17:45; Stop 03/06/20 at 17:48; Status DC Fentanyl Citrate (Fentanyl 2ml Vial) 50 mcg 1X ONCE IVP Last administered on 03/06/20at 17:53; Start 03/06/20 at 17:45; Stop 03/06/20 at 17:48; Status DC Lorazepam (Ativan Inj) 2 mg 1X ONCE IVP Last administered on 03/06/20at 17:52; Start 03/06/20 at 18:00; Stop 03/06/20 at 18:01; Status DC Haloperidol Lactate (Haldol Inj) 5 mg 1X ONCE IVP ; Start 03/06/20 at 18:00; Stop 03/06/20 at 17:56; Status DC Haloperidol Lactate (Haldol Inj) 5 mg 1X ONCE IVP Last administered on 03/06/20 17:55; Start 03/06/20 at 18:00; Stop 03/06/20 at 18:01; Status DC Methylprednisolone (Medrol) 32 mg 1X ONCE PO Last administered on 03/06/20at 20:46; Start 03/06/20 at 19:30; Stop 03/06/20 at 19:31; Status DC Ondansetron HCl (Zofran) 4 mg PRN Q8HRS PRN IV NAUSEA/VOMITING; Start 03/06/20 at 21:15; Stop 03/07/20 at 21:14; Status DC Lorazepam (Ativan Inj) 4 mg PRN Q2HRS PRN IVP ANXIETY. Last administered on 03/10/20 01:33; Start 03/06/20 at 22:00 Haloperidol Lactate (Haldol Inj) 5 mg PRN Q6HRS PRN IVP AGITATION Last administered on 03/09/20 14:35; Start 03/06/20 at 22:00 Ondansetron HCl (Zofran) 4 mg PRN Q6HRS PRN IVP NAUSEA/VOMITING Last administered on 03/08/20 16:23; Start 03/06/20 at 22:00 Olanzapine (ZyPREXA IM) 10 mg PRN Q8HRS PRN IM agitation Last administered on 03/10/20at 00:17; Start 03/06/20 at 22:00 Sodium Chloride 1,000 ml @ 100 mls/hr Q10H IV Last administered on 03/06/20at 22:41; Start 03/06/20 at 22:45 Dicyclomine HCl (Bentyl) 10 mg PRN QID PRN PO ABDOMINAL PAIN Last administered on 03/07/20at 19:43; Start 03/07/20 at 19:30 Cyclobenzaprine HCl (Flexeril) 10 mg PRN TID PRN PO MUSCLE SPASMS Last administered on 03/09/20at 06:15; Start 03/07/20 at 20:00 Oxycodone/ Acetaminophen (Percocet 5/325) 1 tab PRN Q6HRS PRN PO PAIN Last administered on 03/10/20 08:45; Start 03/07/20 at 20:00 Nicotine (Nicoderm Cq 21mg) 1 patch DAILY TD Last administered on 03/09/20at 09:37; Start 03/08/20 at 09:00 Nicotine Polacrilex (Nicorette Gum) 1 each PRN Q1HR PRN BC SMOKING CESSATION Last administered on 03/09/20at 19:30; Start 03/08/20 at 09:00 Pantoprazole Sodium (Protonix) 40 mg DAILYAC PO Last administered on 03/10/20at 08:45; Start 03/08/20 at 10:15 Lidocaine (Lidoderm) 1 patch DAILY TD Last administered on 03/09/20at 09:33; Start 03/09/20 at 09:00 Miscellaneous (Lidoderm Patch Removal) 1 ea QHS MC Last administered on 03/09/20at 21:00; Start 03/08/20 at 21:00 Nitrofurantoin Macrocrystals (Macrobid) 100 mg BID PO Last administered on 03/09/20at 21:49; Start 03/08/20 at 21:00 Barium Sulfate (Polibar Acb) 397 gm 1X ONCE VT ; Start 03/09/20 at 09:30; Stop 03/09/20 at 09:31; Status DC Haloperidol Lactate (Haldol Inj) 10 mg 1X ONCE IM Last administered on 03/09/20at 21:50; Start 03/09/20 at 22:00; Stop 03/09/20 at 22:01; Status DC Diphenhydramine HCl (Benadryl Oral Elixir) 25 mg PRN Q4HRS PRN PO ITCHING Last administered on 03/10/20at 02:37; Start 03/10/20 at 02:30 Midazolam HCl (Versed) 2 mg 1X ONCE IV ; Start 03/10/20 at 05:30; Stop 03/10/20 at 05:40; Status DC Ziprasidone (Geodon Im) 10 mg PRN Q2HR PRN IM AGITATION; Start 03/10/20 at 06:15 Vitals/I & O Vital Sign - Last 24 Hours 03/09/20 03/09/20 03/09/20 03/09/20 14:17 14:48 19:20 19:30 Temp 98.0 98.6 98.0 98.6 Pulse 84 112 Resp 16 20 B/P (MAP) 110/70 (83) 114/73 (87) Pulse Ox 94 96 94 O2 Delivery Room Air Room Air Room Air Room Air O2 Flow Rate 99.0 03/09/20 03/09/20 03/10/20 03/10/20 22:37 22:59 00:10 00:20 Temp 98.4 98 98.0 98.4 98.0 Pulse 100 82 82 Resp 18 18 18 B/P (MAP) 128/84 (99) 111/69 (83) Pulse Ox 92 97 O2 Delivery Room Air Room Air Room Air 03/10/20 03/10/20 03/10/20 03/10/20 03:10 03:15 05:10 05:10 Temp 98 98.4 98.2 98 98.4 98.2 Pulse 75 75 86 86 Resp 18 18 18 B/P (MAP) 141/92 (108) 103/65 (78) Pulse Ox 97 96 O2 Delivery Room Air Room Air 03/10/20 03/10/20 03/10/20 03/10/20 07:00 07:52 08:45 09:53 Temp 98.4 98.4 Pulse 87 Resp 16 18 18 B/P (MAP) 113/82 (92) Pulse Ox 96 96 96 O2 Delivery Room Air Room Air Room Air Room Air Intake and Output 03/09/20 03/09/20 03/10/20 15:00 23:00 07:00 Intake Total 180 ml 0 ml Output Total 175 ml Balance 180 ml -175 ml Justifications for Admission Other Justification MAGALY BOWMAN MD Mar 10, 2020 11:14
[2020-03-10 11:19] LABS: % BANDS 1 % (0-9); % EOS 33 % (0-5); % LYMPHS 6 % (24-48); % MONOS 5 % (0-10); % SEGS 55 % (35-66)
[2020-03-10] MEDS: ZIPRASIDONE IM 20 MG VIAL. IM PRN ×2 (11:53→16:05)
[2020-03-10 12:32] LABS: PLT ESTIMATE ADEQUATE (ADEQUATE)
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
[2020-03-10] MEDS: HALOPERIDOL LACTATE 5 MG/ML VIAL. IVP PRN (19:13)
[2020-03-10] MEDS: PATCH REMOVAL. MC SCH (21:00)
[2020-03-10] MEDS: NITROFURANTOIN MONOHYD/M-CRYST 100 MG CAPSULE. PO SCH (21:14)
--- NOTE | 2020-03-10 21:23 | NUR ---
4Point restraints off at 2014. Pt. doing well so far. Pt. walked around unit at couple times, ate a snack and is currently trying to fall asleep. Will continue to monitor.
[2020-03-11] MEDS: IV NORMAL SALINE 1000ML BAG 1,000 ML IV SCH ×3 (02:45→19:22)
[2020-03-11 02:55] VITALS: BP 126/69
[2020-03-11] MEDS: PANTOPRAZOLE 40 MG TABLET.DR. PO SCH (06:28)
[2020-03-11] MEDS: LIDOCAINE (700MG/PATCH) PATCH. TD SCH (07:38)
[2020-03-11 07:44] LABS: BASO % 0 % (0-3); EOS # 4.4 x10^3/uL (0.0-0.7); EOS % 39 % (0-3); HEMATOCRIT 42.6 % (39.0-53.0); HEMOGLOBIN 14.1 g/dL (13.0-17.5); LYMPH # 0.9 x10^3/uL (1.0-4.8); LYMPH % 8 % (24-48); MEAN CORPUSCULAR HEMOGLOBIN 28 pg (25-35); MEAN CORPUSCULAR HGB CONC 33 g/dL (31-37); MEAN CORPUSCULAR VOLUME 84 fL (79-100); MONO # 0.7 x10^3/uL (0.0-1.1); MONO % 6 % (0-9); NEUT # 5.3 x10^3/uL (1.8-7.7); NEUT % 46 % (31-73); PLATELET COUNT 246 x10^3/uL (140-400); RED BLOOD COUNT 5.05 x10^6/uL (4.30-5.70); RED CELL DISTRIBUTION WIDTH 15.3 % (11.5-14.5); WHITE BLOOD COUNT 11.3 x10^3/uL (4.0-11.0)
[2020-03-11] MEDS: NICOTINE 21MG PATCH. TD SCH (07:50)
[2020-03-11] MEDS: NITROFURANTOIN MONOHYD/M-CRYST 100 MG CAPSULE. PO SCH ×2 (07:50→21:58)
[2020-03-11 08:27] LABS: ALBUMIN 3.5 g/dL (3.4-5.0); ALBUMIN/GLOBULIN RATIO 0.9 (1.0-1.7); CALCIUM 8.9 mg/dL (8.5-10.1); CREATININE 0.8 mg/dL (0.7-1.3); POTASSIUM 3.7 mmol/L (3.5-5.1); TOTAL BILIRUBIN 1.1 mg/dL (0.2-1.0); TOTAL PROTEIN 7.2 g/dL (6.4-8.2)
[2020-03-11 08:40] VITALS: BP 108/81
[2020-03-11] MEDS: oxyCODONE/APAP 5/325 1 TAB TABLET PO PRN ×2 (09:24→21:30)
[2020-03-11] MEDS: OLANZapine 5 MG TABLET PO SCH ×2 (09:55→21:00)
[2020-03-11 11:00] VITALS: BP 122/85
--- NOTE | 2020-03-11 11:41 | PDOC ---
PROGRESS NOTES Date of Service: DATE: 03/11/20 TIME: 11:40 Chief Complaint Chief Complaint impression ======= Flank pain wall thickening of the visualized distal esophagus, could be due to esophagitis, cannot accurately exclude underlying mass. There is small hiatal hernia. Mild wall thickening of the distal thoracic esophagus could reflect esophagitis in setting of a moderate sized hiatal hernia.on UGI 03/10 MAJOR DEPRESSION WITH SI Tobacco abuse NO MICROHEMATURIA Advanced multilevel lumbar spondylosis with rightward curvature. 03/10 agitated overnight, now in 4 pt restraints 03/11 out of restraints, tachy ekg pending plan consult psych, try transfer to [facility] refused gi consult PT/OT Consult dr lazaro PAIN CONTROL r/o a fib 37 min pt exam, chart review, > 50% of time spent with exam, chart review, pt care coordination 64-year-old male well on high dose methadone FOR BACK PAIN . 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 presents with abdominal pain. We are concerned he could have kidney stone. We tried to scan him in the ER, but he could not sit still. Then he explained to the nurses that he was suicidal. He got a little agitated. We had to call security. Now we have given some Ativan and Haldol in the ER, he is calm NOW admit the patient. PAST MEDICAL HISTORY: Anxiety, depression, PTSD, chronic pain, narcotic dependence. I suspect he may have done heroin in the past, but I am not clear on that. Bone graft, left liver surgery, current tobacco abuse. ALLERGIES: PENICILLIN AND SULFA. FAMILY HISTORY: Coronary disease. SOCIAL HISTORY: He smokes and drinks. 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 Discussed with RN Chart reviewed Tox screen was positive for methadone Continue PRN sedatives 1:1 observation Await Psych Discharge disposition pending PAT CONSULT ugi today discussed DPOA NEED 12 MIN D/W RN , tried to leave the hospital last night, security called, had to be restrained Patient was complaining of abdominal pain, kidney stone and demonstrated suicidal ideation ON ADMIT Vitals Vitals Vital Signs Date Time Temp Pulse Resp B/P (MAP) Pulse Ox O2 Delivery O2 Flow Rate FiO2 03/11/20 11:00 98.4 117 20 122/85 (97) 96 Room Air 98.4 Physical Exam Physical Exam IN 4 PT RESTRAINTS General: Alert, Oriented X3, Cooperative, No acute distress, Other (frustrated) Heart: Regular rate, Normal S1, Other (tachy) Lungs: Clear Abdomen: Normal bowel sounds, Soft, Other (flank pain) Extremities: No clubbing, No cyanosis, No edema Skin: No rashes Labs LABS Laboratory Tests Test 03/11/20 06:45 White Blood Count 11.3 x10^3/uL (4.0-11.0) Red Blood Count 5.05 x10^6/uL (4.30-5.70) Hemoglobin 14.1 g/dL (13.0-17.5) Hematocrit 42.6 % (39.0-53.0) Mean Corpuscular Volume 84 fL (79-100) Mean Corpuscular Hemoglobin 28 pg (25-35) Mean Corpuscular Hemoglobin Concent 33 g/dL (31-37) Red Cell Distribution Width 15.3 % (11.5-14.5) Platelet Count 246 x10^3/uL (140-400) Neutrophils (%) (Auto) 46 % (31-73) Lymphocytes (%) (Auto) 8 % (24-48) Monocytes (%) (Auto) 6 % (0-9) Eosinophils (%) (Auto) 39 % (0-3) Basophils (%) (Auto) 0 % (0-3) Neutrophils # (Auto) 5.3 x10^3/uL (1.8-7.7) Lymphocytes # (Auto) 0.9 x10^3/uL (1.0-4.8) Monocytes # (Auto) 0.7 x10^3/uL (0.0-1.1) Eosinophils # (Auto) 4.4 x10^3/uL (0.0-0.7) Basophils # (Auto) 0.0 x10^3/uL (0.0-0.2) Sodium Level 140 mmol/L (136-145) Potassium Level 3.7 mmol/L (3.5-5.1) Chloride Level 103 mmol/L (98-107) Carbon Dioxide Level 29 mmol/L (21-32) Anion Gap 8 (6-14) Blood Urea Nitrogen 21 mg/dL (8-26) Creatinine 0.8 mg/dL (0.7-1.3) Estimated GFR (Cockcroft-Gault) 98.0 BUN/Creatinine Ratio 26 (6-20) Glucose Level 108 mg/dL (70-99) Calcium Level 8.9 mg/dL (8.5-10.1) Total Bilirubin 1.1 mg/dL (0.2-1.0) Aspartate Amino Transf (AST/SGOT) 25 U/L (15-37) Alanine Aminotransferase (ALT/SGPT) 25 U/L (16-63) Alkaline Phosphatase 95 U/L (46-116) Total Protein 7.2 g/dL (6.4-8.2) Albumin 3.5 g/dL (3.4-5.0) Albumin/Globulin Ratio 0.9 (1.0-1.7) Assessment and Plan Assessmemt and Plan Problems Medical Problems: (1) Degenerative disc disease, lumbar Status: Acute (2) Intractable back pain Status: Acute (3) Suicidal behavior Status: Acute Comment Review of Relevant I have reviewed the following items laura (where applicable) has been applied. Labs Laboratory Tests Test 03/10/20 07:05 03/11/20 06:45 White Blood Count 14.5 x10^3/uL (4.0-11.0) 11.3 x10^3/uL (4.0-11.0) Red Blood Count 4.91 x10^6/uL (4.30-5.70) 5.05 x10^6/uL (4.30-5.70) Hemoglobin 13.7 g/dL (13.0-17.5) 14.1 g/dL (13.0-17.5) Hematocrit 41.4 % (39.0-53.0) 42.6 % (39.0-53.0) Mean Corpuscular Volume 84 fL (79-100) 84 fL (79-100) Mean Corpuscular Hemoglobin 28 pg (25-35) 28 pg (25-35) Mean Corpuscular Hemoglobin Concent 33 g/dL (31-37) 33 g/dL (31-37) Red Cell Distribution Width 15.2 % (11.5-14.5) 15.3 % (11.5-14.5) Platelet Count 265 x10^3/uL (140-400) 246 x10^3/uL (140-400) Neutrophils (%) (Auto) 59 % (31-73) 46 % (31-73) Lymphocytes (%) (Auto) 9 % (24-48) 8 % (24-48) Monocytes (%) (Auto) 6 % (0-9) 6 % (0-9) Eosinophils (%) (Auto) 26 % (0-3) 39 % (0-3) Basophils (%) (Auto) 0 % (0-3) 0 % (0-3) Neutrophils # (Auto) 8.5 x10^3/uL (1.8-7.7) 5.3 x10^3/uL (1.8-7.7) Lymphocytes # (Auto) 1.3 x10^3/uL (1.0-4.8) 0.9 x10^3/uL (1.0-4.8) Monocytes # (Auto) 0.9 x10^3/uL (0.0-1.1) 0.7 x10^3/uL (0.0-1.1) Eosinophils # (Auto) 3.7 x10^3/uL (0.0-0.7) 4.4 x10^3/uL (0.0-0.7) Basophils # (Auto) 0.0 x10^3/uL (0.0-0.2) 0.0 x10^3/uL (0.0-0.2) Segmented Neutrophils % 55 % (35-66) Band Neutrophils % 1 % (0-9) Lymphocytes % 6 % (24-48) Monocytes % 5 % (0-10) Eosinophils % 33 % (0-5) Platelet Estimate Adequate (ADEQUATE) Sodium Level 141 mmol/L (136-145) 140 mmol/L (136-145) Potassium Level 3.7 mmol/L (3.5-5.1) 3.7 mmol/L (3.5-5.1) Chloride Level 103 mmol/L (98-107) 103 mmol/L (98-107) Carbon Dioxide Level 28 mmol/L (21-32) 29 mmol/L (21-32) Anion Gap 10 (6-14) 8 (6-14) Blood Urea Nitrogen 16 mg/dL (8-26) 21 mg/dL (8-26) Creatinine 1.0 mg/dL (0.7-1.3) 0.8 mg/dL (0.7-1.3) Estimated GFR (Cockcroft-Gault) 75.7 98.0 BUN/Creatinine Ratio 16 (6-20) 26 (6-20) Glucose Level 112 mg/dL (70-99) 108 mg/dL (70-99) Calcium Level 9.3 mg/dL (8.5-10.1) 8.9 mg/dL (8.5-10.1) Total Bilirubin 0.7 mg/dL (0.2-1.0) 1.1 mg/dL (0.2-1.0) Aspartate Amino Transf (AST/SGOT) 36 U/L (15-37) 25 U/L (15-37) Alanine Aminotransferase (ALT/SGPT) 27 U/L (16-63) 25 U/L (16-63) Alkaline Phosphatase 99 U/L (46-116) 95 U/L (46-116) Total Protein 7.4 g/dL (6.4-8.2) 7.2 g/dL (6.4-8.2) Albumin 3.7 g/dL (3.4-5.0) 3.5 g/dL (3.4-5.0) Albumin/Globulin Ratio 1.0 (1.0-1.7) 0.9 (1.0-1.7) Laboratory Tests Test 03/11/20 06:45 White Blood Count 11.3 x10^3/uL (4.0-11.0) Red Blood Count 5.05 x10^6/uL (4.30-5.70) Hemoglobin 14.1 g/dL (13.0-17.5) Hematocrit 42.6 % (39.0-53.0) Mean Corpuscular Volume 84 fL (79-100) Mean Corpuscular Hemoglobin 28 pg (25-35) Mean Corpuscular Hemoglobin Concent 33 g/dL (31-37) Red Cell Distribution Width 15.3 % (11.5-14.5) Platelet Count 246 x10^3/uL (140-400) Neutrophils (%) (Auto) 46 % (31-73) Lymphocytes (%) (Auto) 8 % (24-48) Monocytes (%) (Auto) 6 % (0-9) Eosinophils (%) (Auto) 39 % (0-3) Basophils (%) (Auto) 0 % (0-3) Neutrophils # (Auto) 5.3 x10^3/uL (1.8-7.7) Lymphocytes # (Auto) 0.9 x10^3/uL (1.0-4.8) Monocytes # (Auto) 0.7 x10^3/uL (0.0-1.1) Eosinophils # (Auto) 4.4 x10^3/uL (0.0-0.7) Basophils # (Auto) 0.0 x10^3/uL (0.0-0.2) Sodium Level 140 mmol/L (136-145) Potassium Level 3.7 mmol/L (3.5-5.1) Chloride Level 103 mmol/L (98-107) Carbon Dioxide Level 29 mmol/L (21-32) Anion Gap 8 (6-14) Blood Urea Nitrogen 21 mg/dL (8-26) Creatinine 0.8 mg/dL (0.7-1.3) Estimated GFR (Cockcroft-Gault) 98.0 BUN/Creatinine Ratio 26 (6-20) Glucose Level 108 mg/dL (70-99) Calcium Level 8.9 mg/dL (8.5-10.1) Total Bilirubin 1.1 mg/dL (0.2-1.0) Aspartate Amino Transf (AST/SGOT) 25 U/L (15-37) Alanine Aminotransferase (ALT/SGPT) 25 U/L (16-63) Alkaline Phosphatase 95 U/L (46-116) Total Protein 7.2 g/dL (6.4-8.2) Albumin 3.5 g/dL (3.4-5.0) Albumin/Globulin Ratio 0.9 (1.0-1.7) Microbiology 03/06/20 Urine Culture - Final, Complete 03/06/20 Antimicrobic Susceptibility - Final, Complete Medications Current Medications Ketorolac Tromethamine (Toradol 30mg Vial) 30 mg 1X ONCE IVP Last administered on 03/06/20at 17:07; Start 03/06/20 at 17:00; Stop 03/06/20 at 17:04; Status DC Metoclopramide HCl (Reglan Vial) 10 mg 1X ONCE IVP Last administered on 03/06/20at 17:07; Start 03/06/20 at 17:00; Stop 03/06/20 at 17:04; Status DC Sodium Chloride 1,000 ml @ 1,000 mls/hr 1X ONCE IV Last administered on 03/06/20at 17:07; Start 03/06/20 at 17:00; Stop 03/06/20 at 17:59; Status DC Metoclopramide HCl (Reglan Vial) 10 mg STK-MED ONCE .ROUTE ; Start 03/06/20 at 17:05; Stop 03/06/20 at 17:05; Status DC Ketorolac Tromethamine (Toradol 30mg Vial) 30 mg STK-MED ONCE .ROUTE ; Start 03/06/20 at 17:05; Stop 03/06/20 at 17:05; Status DC Haloperidol Lactate (Haldol Inj) 5 mg STK-MED ONCE .ROUTE ; Start 03/06/20 at 17:32; Stop 03/06/20 at 17:32; Status DC Lorazepam (Ativan Inj) 2 mg STK-MED ONCE .ROUTE ; Start 03/06/20 at 17:34; Stop 03/06/20 at 17:35; Status DC Diphenhydramine HCl (Benadryl) 50 mg 1X ONCE IVP ; Start 03/06/20 at 17:45; Stop 03/06/20 at 17:46; Status DC Haloperidol (Haldol) 5 mg 1X PRN PO AGITATION; Start 03/06/20 at 17:45; Status Cancel Lorazepam (Ativan Inj) 2 mg 1X ONCE IVP Last administered on 03/06/20at 17:51; Start 03/06/20 at 17:45; Stop 03/06/20 at 17:48; Status DC Fentanyl Citrate (Fentanyl 2ml Vial) 50 mcg 1X ONCE IVP Last administered on 03/06/20at 17:53; Start 03/06/20 at 17:45; Stop 03/06/20 at 17:48; Status DC Lorazepam (Ativan Inj) 2 mg 1X ONCE IVP Last administered on 03/06/20 17:52; Start 03/06/20 at 18:00; Stop 03/06/20 at 18:01; Status DC Haloperidol Lactate (Haldol Inj) 5 mg 1X ONCE IVP ; Start 03/06/20 at 18:00; Stop 03/06/20 at 17:56; Status DC Haloperidol Lactate (Haldol Inj) 5 mg 1X ONCE IVP Last administered on 03/06/20at 17:55; Start 03/06/20 at 18:00; Stop 03/06/20 at 18:01; Status DC Methylprednisolone (Medrol) 32 mg 1X ONCE PO Last administered on 03/06/20at 20:46; Start 03/06/20 at 19:30; Stop 03/06/20 at 19:31; Status DC Ondansetron HCl (Zofran) 4 mg PRN Q8HRS PRN IV NAUSEA/VOMITING; Start 03/06/20 at 21:15; Stop 03/07/20 at 21:14; Status DC Lorazepam (Ativan Inj) 4 mg PRN Q2HRS PRN IVP ANXIETY. Last administered on 03/11/20at 11:34; Start 03/06/20 at 22:00 Haloperidol Lactate (Haldol Inj) 5 mg PRN Q6HRS PRN IVP AGITATION Last administered on 03/10/20at 19:13; Start 03/06/20 at 22:00; Stop 03/11/20 at 09:42; Status DC Ondansetron HCl (Zofran) 4 mg PRN Q6HRS PRN IVP NAUSEA/VOMITING Last administered on 03/08/20at 16:23; Start 03/06/20 at 22:00 Olanzapine (ZyPREXA IM) 10 mg PRN Q8HRS PRN IM agitation Last administered on 03/10/20 00:17; Start 03/06/20 at 22:00 Sodium Chloride 1,000 ml @ 100 mls/hr Q10H IV Last administered on 03/06/20at 22:41; Start 03/06/20 at 22:45 Dicyclomine HCl (Bentyl) 10 mg PRN QID PRN PO ABDOMINAL PAIN Last administered on 03/07/20at 19:43; Start 03/07/20 at 19:30 Cyclobenzaprine HCl (Flexeril) 10 mg PRN TID PRN PO MUSCLE SPASMS Last administered on 03/09/20 06:15; Start 03/07/20 at 20:00; Stop 03/10/20 at 18:21; Status DC Oxycodone/ Acetaminophen (Percocet 5/325) 1 tab PRN Q6HRS PRN PO PAIN Last administered on 03/11/20at 09:24; Start 03/07/20 at 20:00 Nicotine (Nicoderm Cq 21mg) 1 patch DAILY TD Last administered on 03/11/20at 07:50; Start 03/08/20 at 09:00 Nicotine Polacrilex (Nicorette Gum) 1 each PRN Q1HR PRN BC SMOKING CESSATION Last administered on 03/09/20at 19:30; Start 03/08/20 at 09:00 Pantoprazole Sodium (Protonix) 40 mg DAILYAC PO Last administered on 03/11/20at 06:28; Start 03/08/20 at 10:15 Lidocaine (Lidoderm) 1 patch DAILY TD Last administered on 03/09/20at 09:33; Start 03/09/20 at 09:00 Miscellaneous (Lidoderm Patch Removal) 1 ea QHS MC Last administered on 03/09/20at 21:00; Start 03/08/20 at 21:00 Nitrofurantoin Macrocrystals (Macrobid) 100 mg BID PO Last administered on 03/11/20at 07:50; Start 03/08/20 at 21:00 Barium Sulfate (Polibar Acb) 397 gm 1X ONCE OH ; Start 03/09/20 at 09:30; Stop 03/09/20 at 09:31; Status DC Haloperidol Lactate (Haldol Inj) 10 mg 1X ONCE IM Last administered on 03/09/20at 21:50; Start 03/09/20 at 22:00; Stop 03/09/20 at 22:01; Status DC Diphenhydramine HCl (Benadryl Oral Elixir) 25 mg PRN Q4HRS PRN PO ITCHING Last administered on 03/10/20at 21:14; Start 03/10/20 at 02:30 Midazolam HCl (Versed) 2 mg 1X ONCE IV ; Start 03/10/20 at 05:30; Stop 03/10/20 at 05:40; Status DC Ziprasidone (Geodon Im) 10 mg PRN Q2HR PRN IM AGITATION Last administered on 03/10/20at 16:05; Start 03/10/20 at 06:15; Stop 03/11/20 at 09:42; Status DC Olanzapine (ZyPREXA) 5 mg BID PO Last administered on 03/11/20at 09:55; Start 03/11/20 at 10:00 Vitals/I & O Vital Sign - Last 24 Hours 03/10/20 03/10/20 03/10/20 03/10/20 15:00 19:00 19:00 19:55 Temp 97.6 98.2 97.6 98.2 Pulse 111 90 106 Resp 18 B/P (MAP) 124/77 (93) 134/99 (111) Pulse Ox 97 97 O2 Delivery Room Air Room Air Room Air 03/10/20 03/10/20 03/11/20 03/11/20 20:00 23:00 02:55 07:21 Temp 98.3 98.1 98.3 98.1 Pulse 87 88 Resp 20 20 20 B/P (MAP) 125/86 (99) 126/69 (88) Pulse Ox 97 98 O2 Delivery Room Air Room Air Room Air 03/11/20 03/11/20 03/11/20 03/11/20 08:40 09:24 10:40 11:00 Temp 98.2 98.4 98.2 98.4 Pulse 101 117 Resp 20 20 B/P (MAP) 108/81 (90) 122/85 (97) Pulse Ox 93 93 93 96 O2 Delivery Room Air Room Air Room Air Room Air Intake and Output 03/10/20 03/10/20 03/11/20 15:00 23:00 07:00 Intake Total 350 ml 250 ml Output Total 400 ml 50 ml Balance -400 ml 300 ml 250 ml Justicifation of Admission Dx: Justifications for Admission: Justification of Admission Dx: Yes ROSA MARIA ULLOA MD Mar 11, 2020 11:41
[2020-03-11] MEDS: NICOTINE POLACRILEX 2MG GUM PACKAGE of 12. BC PRN (13:13)
[2020-03-11 15:00] VITALS: BP 123/92
--- NOTE | 2020-03-11 15:49 | EKG ---
[facility] [address] [place] [address] Test Date: 2020-03-11 Test Time: 15:47:25 Pat Name: GUADALUPE LACY Department: Room: 404 Gender: M Relations Coordinator: PAIGE : 1955 Requested By: ROSA MARIA ULLOA Order Number: [id number] Reading MD: Otis Gonzalez MD Measurements Intervals [place] Rate: 117 P: -62 LA: 126 QRS: 66 QRSD: 80 T: 51 QT: 324 QTc: 456 Interpretive Statements SINUS TACHYCARDIA Electronically Signed On 03-12-2020 11:10:43 CDT by Otis Gonzalez MD
--- NOTE | 2020-03-11 16:17 | NUR ---
Notified Dr. Neri of EKG results and tachycardia. Received new orders and order to transfer to med/tele unit. Notified Dr. Tamayo of patients condition and he agreed on med/tele transfer. Notified [place] nursing shop supervisor. Per Ghazal patient will move to room 650 when bed is available.
--- NOTE | 2020-03-11 18:11 | NUR ---
Patient transferred to [address] [place] [address] room 650, report given to LINDA Melissa. Chart sent with patient.
[2020-03-11] MEDS: PATCH REMOVAL. MC SCH (19:22)
[2020-03-11 19:25] VITALS: BP 157/98
[2020-03-11] MEDS: OLANZapine IM 10 MG VIAL. IM PRN (21:59)
[2020-03-11] MEDS: HALOPERIDOL LACTATE 5 MG/ML VIAL. IM/IV PRN ×6 (21:59→23:45)
[2020-03-11 23:48] VITALS: BP 156/116
[2020-03-12] MEDS: HALOPERIDOL LACTATE 5 MG/ML VIAL. IM/IV PRN ×2 (00:05→02:06)
[2020-03-12 03:33] VITALS: BP 127/85
--- NOTE | 2020-03-12 05:09 | NUR ---
Patient non-compliant and refuses to obey commands. He refuses to stay in bed and wants to walk in hallways, then he tries to escape through fire exit doors. Order given by Dr. Norton early in shift for Haldol IV, not to exceed 15mg. Patient also had order for IM Zyprexa and IV ativa Addendum: 03/12/20 at 0516 by Danielle Perez RN Continued.... IV Ativan 4mg q 4hours prn. Patient received a total of 15mg Haldol, 12mg Ativan and IM Zyprexa 10mg. Still getting up and swinging at myself, the 1:[address] sitter [address] other staff[address] Dr. Norton was called and an order given for soft restraints, which were applied at 0430.
[2020-03-12 07:00] VITALS: BP 154/119
[2020-03-12 08:10] LABS: BASO # 0.1 x10^3/uL (0.0-0.2); BASO % 1 % (0-3); EOS % 46 % (0-3); HEMATOCRIT 42.3 % (39.0-53.0); HEMOGLOBIN 14.7 g/dL (13.0-17.5); LYMPH # 1.2 x10^3/uL (1.0-4.8); LYMPH % 11 % (24-48); MEAN CORPUSCULAR HEMOGLOBIN 29 pg (25-35); MEAN CORPUSCULAR HGB CONC 35 g/dL (31-37); MEAN CORPUSCULAR VOLUME 84 fL (79-100); MONO # 0.6 x10^3/uL (0.0-1.1); MONO % 5 % (0-9); NEUT % 37 % (31-73); PLATELET COUNT 247 x10^3/uL (140-400); RED BLOOD COUNT 5.02 x10^6/uL (4.30-5.70); WHITE BLOOD COUNT 10.9 x10^3/uL (4.0-11.0)
[2020-03-12] MEDS: PANTOPRAZOLE 40 MG TABLET.DR. PO SCH (08:15)
[2020-03-12] MEDS: IV NORMAL SALINE 1000ML BAG 1,000 ML IV SCH (08:15)
[2020-03-12] MEDS: oxyCODONE/APAP 5/325 1 TAB TABLET PO PRN (08:15)
[2020-03-12] MEDS: OLANZapine 5 MG TABLET PO SCH (08:15)
[2020-03-12] MEDS: LIDOCAINE (700MG/PATCH) PATCH. TD SCH (08:15)
[2020-03-12] MEDS: NICOTINE 21MG PATCH. TD SCH (08:16)
[2020-03-12 08:39] LABS: ALBUMIN 3.6 g/dL (3.4-5.0); CALCIUM 8.8 mg/dL (8.5-10.1); GFR 75.7; POTASSIUM 3.4 mmol/L (3.5-5.1); TOTAL BILIRUBIN 0.7 mg/dL (0.2-1.0); TOTAL PROTEIN 7.3 g/dL (6.4-8.2)
[2020-03-12] MEDS: NITROFURANTOIN MONOHYD/M-CRYST 100 MG CAPSULE. PO SCH ×3 (09:41→23:10)
--- NOTE | 2020-03-12 10:44 | PDOC ---
[employer] PROGRESS NOTE Date of Service DOS: DATE: 03/12/20 TIME: 10:37 Chief Complaint Chief Complaint A/P: Flank pain wall thickening of the visualized distal esophagus, could be due to esophagitis, cannot accurately exclude underlying mass. There is small hiatal hernia. Mild wall thickening of the distal thoracic esophagus could reflect esophagitis in setting of a moderate sized hiatal hernia.on UGI 03/10 MAJOR DEPRESSION WITH SI Tobacco abuse NO MICROHEMATURIA Advanced multilevel lumbar spondylosis with rightward curvature. Suicidal ideation plan consult psych, try transfer to [facility] refused gi consult PT/OT Consult dr lazaro PAIN CONTROL r/o a fib 37 min pt exam, chart review, > 50% of time spent with exam, chart review, pt care coordination 64-year-old male well on high dose methadone FOR BACK PAIN . 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 presents with abdominal pain. We are concerned he could have kidney stone. We tried to scan him in the ER, but he could not sit still. Then he explained to the nurses that he was suicidal. He got a little agitated. We had to call security. Now we have given some Ativan and Haldol in the ER, he is calm NOW admit the patient. PAST MEDICAL HISTORY: Anxiety, depression, PTSD, chronic pain, narcotic dependence. I suspect he may have done heroin in the past, but I am not clear on that. Bone graft, left liver surgery, current tobacco abuse. ALLERGIES: PENICILLIN AND SULFA. FAMILY HISTORY: Coronary disease. SOCIAL HISTORY: He smokes and drinks. 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 daily., He has cut down his methadone dosing as his last fill was on 02/15/2020. He is feeling about the same, still with suicidal thoughts Vitals/I&O Vitals/I&O: Vital Signs Date Time Temp Pulse Resp B/P (MAP) Pulse Ox O2 Delivery O2 Flow Rate FiO2 03/12/20 08:15 Room Air 03/12/20 07:00 98.0 20 154/119 (131) 100 98.0 03/12/20 03:33 96 03/11/20 22:30 99.0 I & O 03/11/20 03/11/20 03/12/20 15:00 23:00 07:00 Intake Total 100 ml 1050 ml Output Total 200 ml Balance 100 ml 850 ml Physical Exam Physical Exam: IN 4 PT RESTRAINTS General: Alert, Oriented X3, Cooperative, No acute distress, Other (frustrated) Heart: Regular rate, Normal S1, Other (tachy) Lungs: Clear Abdomen: Normal bowel sounds, Soft, Other (flank pain) Extremities: No clubbing, No cyanosis, No edema Skin: No rashes Labs Labs: Laboratory Tests Test 03/12/20 07:50 White Blood Count 10.9 x10^3/uL (4.0-11.0) Red Blood Count 5.02 x10^6/uL (4.30-5.70) Hemoglobin 14.7 g/dL (13.0-17.5) Hematocrit 42.3 % (39.0-53.0) Mean Corpuscular Volume 84 fL (79-100) Mean Corpuscular Hemoglobin 29 pg (25-35) Mean Corpuscular Hemoglobin Concent 35 g/dL (31-37) Red Cell Distribution Width 15.0 % (11.5-14.5) Platelet Count 247 x10^3/uL (140-400) Neutrophils (%) (Auto) 37 % (31-73) Lymphocytes (%) (Auto) 11 % (24-48) Monocytes (%) (Auto) 5 % (0-9) Eosinophils (%) (Auto) 46 % (0-3) Basophils (%) (Auto) 1 % (0-3) Neutrophils # (Auto) 4.0 x10^3/uL (1.8-7.7) Lymphocytes # (Auto) 1.2 x10^3/uL (1.0-4.8) Monocytes # (Auto) 0.6 x10^3/uL (0.0-1.1) Eosinophils # (Auto) 5.0 x10^3/uL (0.0-0.7) Basophils # (Auto) 0.1 x10^3/uL (0.0-0.2) Sodium Level 141 mmol/L (136-145) Potassium Level 3.4 mmol/L (3.5-5.1) Chloride Level 103 mmol/L (98-107) Carbon Dioxide Level 29 mmol/L (21-32) Anion Gap 9 (6-14) Blood Urea Nitrogen 18 mg/dL (8-26) Creatinine 1.0 mg/dL (0.7-1.3) Estimated GFR (Cockcroft-Gault) 75.7 BUN/Creatinine Ratio 18 (6-20) Glucose Level 111 mg/dL (70-99) Calcium Level 8.8 mg/dL (8.5-10.1) Total Bilirubin 0.7 mg/dL (0.2-1.0) Aspartate Amino Transf (AST/SGOT) 30 U/L (15-37) Alanine Aminotransferase (ALT/SGPT) 28 U/L (16-63) Alkaline Phosphatase 99 U/L (46-116) Total Protein 7.3 g/dL (6.4-8.2) Albumin 3.6 g/dL (3.4-5.0) Albumin/Globulin Ratio 1.0 (1.0-1.7) Assessment and Plan Assessmemt and Plan Problems Medical Problems: (1) Degenerative disc disease, lumbar Status: Acute (2) Intractable back pain Status: Acute (3) Suicidal behavior Status: Acute Comment Review of Relevant I have reviewed the following items laura (where applicable) has been applied. Medications: Current Medications Medications (Trade) Dose Ordered Sig/Arabella Route PRN Reason Start Time Stop Time Status Last Admin Dose Admin Haloperidol Lactate (Haldol Inj) 2 mg PRN Q15MIN PRN IM/IV ANXIETY / AGITATION 03/11/20 21:15 03/12/20 02:06 DC 03/12/20 02:06 Justifications for Admission Other Justification CARMEN LIANG MD Mar 12, 2020 10:44
[2020-03-12] MEDS ORDERED: POTASSIUM CHLORIDE 20 MEQ TABLET.ER. PO ONE (10:45)
[2020-03-12 11:00] VITALS: BP 132/85
--- NOTE | 2020-03-12 11:15 | PDOC2 ---
CARDIOLOGY CONSULT NOTE DATE OF SERVICE: DATE: 03/12/20 TIME: 11:10 CHIEF COMPLAINT: Pain HPI: Wisam is a 64-year-old man who is been admitted to the hospital for pain issues and suicidal ideations. Cardiology was asked to evaluate him due to tachycardia. Patient denies any specific cardiovascular limitations. An e chocardiogram is already been ordered by primary care service. PMHX: 1. Chronic pain 2. GERD 3. Multiple past psychiatric admissions per chart. SOCHX: Notable for smoking and illicit drug use, currently on methadone treatment. FAMHX: Noncontributory CURRENT MEDS: Current Medications Medications (Trade) Dose Ordered Sig/Arabella Route PRN Reason Start Time Stop Time Status Last Admin Dose Admin Haloperidol Lactate (Haldol Inj) 2 mg PRN Q15MIN PRN IM/IV ANXIETY / AGITATION 03/11/20 21:15 03/12/20 02:06 DC 03/12/20 02:06 ALLERGIES: Allergies Coded Allergies Type Severity Reaction Last Updated Verified Penicillins Allergy Severe "I think I " 03/06/20 Yes Sulfa (Sulfonamide Antibiotics) Allergy Severe "I think I " 03/06/20 Yes ROS: Unable to be obtained due to the patient's delirium PHYSICAL EXAM: Vital Signs/I&O: Vital Signs Date Time Temp Pulse Resp B/P (MAP) Pulse Ox O2 Delivery O2 Flow Rate FiO2 03/12/20 08:15 Room Air 03/12/20 07:00 98.0 20 154/119 (131) 100 98.0 03/12/20 03:33 96 03/11/20 22:30 99.0 I & O 03/11/20 03/11/20 03/12/20 14:59 22:59 06:59 Intake Total 100 ml 1050 ml Output Total 200 ml Balance 100 ml 850 ml Physical Exam: Head exam is unremarkable. No scleral icterus or corneal arcus noted. Neck is without jugular venous distension, thyromegaly, or carotid bruits. Carotid upstrokes are brisk bilaterally. Lungs are clear to auscultation and percussion. Cardiac exam reveals the PMI to be normally sized and situated. Rhythm is regular. First and second heart sounds normal. No murmurs, rubs or gallops. Abdominal exam reveals normal bowel sounds, no masses, no organomegaly and no aortic enlargement. Extremities are nonedematous and both femoral and pedal pulses are normal. Msk: No traumua Neuro: No focal deficits DIAGNOSTIC TESTING: Labs, EKG reviewed echocardiogram pending Lab Laboratory Tests Test 03/12/20 07:50 White Blood Count 10.9 x10^3/uL (4.0-11.0) Red Blood Count 5.02 x10^6/uL (4.30-5.70) Hemoglobin 14.7 g/dL (13.0-17.5) Hematocrit 42.3 % (39.0-53.0) Mean Corpuscular Volume 84 fL (79-100) Mean Corpuscular Hemoglobin 29 pg (25-35) Mean Corpuscular Hemoglobin Concent 35 g/dL (31-37) Red Cell Distribution Width 15.0 % (11.5-14.5) H Platelet Count 247 x10^3/uL (140-400) Neutrophils (%) (Auto) 37 % (31-73) Lymphocytes (%) (Auto) 11 % (24-48) L Monocytes (%) (Auto) 5 % (0-9) Eosinophils (%) (Auto) 46 % (0-3) H Basophils (%) (Auto) 1 % (0-3) Neutrophils # (Auto) 4.0 x10^3/uL (1.8-7.7) Lymphocytes # (Auto) 1.2 x10^3/uL (1.0-4.8) Monocytes # (Auto) 0.6 x10^3/uL (0.0-1.1) Eosinophils # (Auto) 5.0 x10^3/uL (0.0-0.7) H Basophils # (Auto) 0.1 x10^3/uL (0.0-0.2) Sodium Level 141 mmol/L (136-145) Potassium Level 3.4 mmol/L (3.5-5.1) L Chloride Level 103 mmol/L (98-107) Carbon Dioxide Level 29 mmol/L (21-32) Anion Gap 9 (6-14) Blood Urea Nitrogen 18 mg/dL (8-26) Creatinine 1.0 mg/dL (0.7-1.3) Estimated GFR (Cockcroft-Gault) 75.7 BUN/Creatinine Ratio 18 (6-20) Glucose Level 111 mg/dL (70-99) H Calcium Level 8.8 mg/dL (8.5-10.1) Total Bilirubin 0.7 mg/dL (0.2-1.0) Aspartate Amino Transf (AST/SGOT) 30 U/L (15-37) Alkaline Phosphatase 99 U/L (46-116) Total Protein 7.3 g/dL (6.4-8.2) Albumin 3.6 g/dL (3.4-5.0) Albumin/Globulin Ratio 1.0 (1.0-1.7) Laboratory Tests 03/12/20 07:50 ASSESSMENT: 1. Sinus tachycardia likely reactive PLAN: 1. Supportive care from a cardiac standpoint. No further testing necessary. Given the possibility of prior polysubstance abuse a baseline echocardiogram is not unreasonable to ensure stable LV function. SERGIO SANDERS MD Mar 12, 2020 11:15
[2020-03-12] MEDS: LITHIUM CARBONATE ER 300 MG TABLET.ER PO SCH ×3 (11:35→23:10)
[2020-03-12] MEDS: SERTRALINE 50 MG TABLET. PO SCH (11:36)
[2020-03-12] MEDS: METHADONE 10 MG TABLET. PO SCH (11:36)
[2020-03-12] MEDS: GABAPENTIN 300 MG CAPSULE. PO SCH ×4 (11:36→23:11)
--- NOTE | 2020-03-12 11:51 | PDOC ---
Date of Service: DATE: 03/12/20 TIME: 11:47 Objective: Objective: Per 1:1 sitter - ate some cream of wheat, no swallowing issues noted. Vital Signs: Vital Signs Date Time Temp Pulse Resp B/P (MAP) Pulse Ox O2 Delivery O2 Flow Rate FiO2 03/12/20 11:00 97.7 86 18 132/85 (101) 99 Room Air 97.7 03/11/20 22:30 99.0 Labs: Laboratory Tests Test 03/12/20 07:50 White Blood Count 10.9 x10^3/uL Red Blood Count 5.02 x10^6/uL Hemoglobin 14.7 g/dL Hematocrit 42.3 % Mean Corpuscular Volume 84 fL Mean Corpuscular Hemoglobin 29 pg Mean Corpuscular Hemoglobin Concent 35 g/dL Red Cell Distribution Width 15.0 % Platelet Count 247 x10^3/uL Neutrophils (%) (Auto) 37 % Lymphocytes (%) (Auto) 11 % Monocytes (%) (Auto) 5 % Eosinophils (%) (Auto) 46 % Basophils (%) (Auto) 1 % Neutrophils # (Auto) 4.0 x10^3/uL Lymphocytes # (Auto) 1.2 x10^3/uL Monocytes # (Auto) 0.6 x10^3/uL Eosinophils # (Auto) 5.0 x10^3/uL Basophils # (Auto) 0.1 x10^3/uL Sodium Level 141 mmol/L Potassium Level 3.4 mmol/L Chloride Level 103 mmol/L Carbon Dioxide Level 29 mmol/L Anion Gap 9 Blood Urea Nitrogen 18 mg/dL Creatinine 1.0 mg/dL Estimated GFR (Cockcroft-Gault) 75.7 BUN/Creatinine Ratio 18 Glucose Level 111 mg/dL Calcium Level 8.8 mg/dL Magnesium Level 2.1 mg/dL Total Bilirubin 0.7 mg/dL Aspartate Amino Transf (AST/SGOT) 30 U/L Alanine Aminotransferase (ALT/SGPT) 28 U/L Alkaline Phosphatase 99 U/L Total Protein 7.3 g/dL Albumin 3.6 g/dL Albumin/Globulin Ratio 1.0 Imaging: Esophagus X-Ray 03/08 IMPRESSION: Mild wall thickening of the distal thoracic esophagus could reflect esophagitis in setting of a moderate sized hiatal hernia. Examination is limited due to patient's discomfort and general immobility. PE: GEN: in restraints NEURO/PSYCH: confused A/P: Chronic pain, MDD, GAS, PTSD UTI, tachycardia GERD, abnormal esophagus imaging (possible esophagitis w/ hiatal hernia as above) -- Confused but no swallowing issues. Continue PPI. Justicifation of Admission Dx: Justifications for Admission: Justification of Admission Dx: Yes ANA RODRIGUEZ Mar 12, 2020 11:51
--- NOTE | 2020-03-12 13:37 | PDOC ---
PROGRESS NOTES Date of Service DATE: 03/12/20 TIME: 13:34 Subjective Subjective No new complaints. Objective Objective Vital Signs Date Time Temp Pulse Resp B/P (MAP) Pulse Ox O2 Delivery O2 Flow Rate FiO2 03/12/20 11:00 97.7 86 18 132/85 (101) 99 Room Air 97.7 03/11/20 22:30 99.0 Intake and Output 03/12/20 07:00 Intake Total 1150 ml Output Total 200 ml Balance 950 ml Intake Oral 1150 ml Output Urine Total 200 ml # Voids 4 Physical Exam Physical Exam He had some agitation last night. He is sitting up in bed this AM and he continu es with tenderness to palpation over right lumbar paraspinal muscles and sacroiliac joint area and he had pain on lumbar spine ROM. Assessment Assessment Problems Medical Problems: (1) Degenerative disc disease, lumbar Status: Acute (2) Intractable back pain Status: Acute (3) Suicidal behavior Status: Acute Plan Plan of Care Agree with plans for transfer to SNF when arrangements are completed. Comment Review of Relevant I have reviewed the following items laura (where applicable) has been applied. Labs Laboratory Tests Test 03/11/20 06:45 03/12/20 07:50 White Blood Count 11.3 x10^3/uL (4.0-11.0) 10.9 x10^3/uL (4.0-11.0) Red Blood Count 5.05 x10^6/uL (4.30-5.70) 5.02 x10^6/uL (4.30-5.70) Hemoglobin 14.1 g/dL (13.0-17.5) 14.7 g/dL (13.0-17.5) Hematocrit 42.6 % (39.0-53.0) 42.3 % (39.0-53.0) Mean Corpuscular Volume 84 fL (79-100) 84 fL (79-100) Mean Corpuscular Hemoglobin 28 pg (25-35) 29 pg (25-35) Mean Corpuscular Hemoglobin Concent 33 g/dL (31-37) 35 g/dL (31-37) Red Cell Distribution Width 15.3 % (11.5-14.5) 15.0 % (11.5-14.5) Platelet Count 246 x10^3/uL (140-400) 247 x10^3/uL (140-400) Neutrophils (%) (Auto) 46 % (31-73) 37 % (31-73) Lymphocytes (%) (Auto) 8 % (24-48) 11 % (24-48) Monocytes (%) (Auto) 6 % (0-9) 5 % (0-9) Eosinophils (%) (Auto) 39 % (0-3) 46 % (0-3) Basophils (%) (Auto) 0 % (0-3) 1 % (0-3) Neutrophils # (Auto) 5.3 x10^3/uL (1.8-7.7) 4.0 x10^3/uL (1.8-7.7) Lymphocytes # (Auto) 0.9 x10^3/uL (1.0-4.8) 1.2 x10^3/uL (1.0-4.8) Monocytes # (Auto) 0.7 x10^3/uL (0.0-1.1) 0.6 x10^3/uL (0.0-1.1) Eosinophils # (Auto) 4.4 x10^3/uL (0.0-0.7) 5.0 x10^3/uL (0.0-0.7) Basophils # (Auto) 0.0 x10^3/uL (0.0-0.2) 0.1 x10^3/uL (0.0-0.2) Sodium Level 140 mmol/L (136-145) 141 mmol/L (136-145) Potassium Level 3.7 mmol/L (3.5-5.1) 3.4 mmol/L (3.5-5.1) Chloride Level 103 mmol/L (98-107) 103 mmol/L (98-107) Carbon Dioxide Level 29 mmol/L (21-32) 29 mmol/L (21-32) Anion Gap 8 (6-14) 9 (6-14) Blood Urea Nitrogen 21 mg/dL (8-26) 18 mg/dL (8-26) Creatinine 0.8 mg/dL (0.7-1.3) 1.0 mg/dL (0.7-1.3) Estimated GFR (Cockcroft-Gault) 98.0 75.7 BUN/Creatinine Ratio 26 (6-20) 18 (6-20) Glucose Level 108 mg/dL (70-99) 111 mg/dL (70-99) Calcium Level 8.9 mg/dL (8.5-10.1) 8.8 mg/dL (8.5-10.1) Total Bilirubin 1.1 mg/dL (0.2-1.0) 0.7 mg/dL (0.2-1.0) Aspartate Amino Transf (AST/SGOT) 25 U/L (15-37) 30 U/L (15-37) Alanine Aminotransferase (ALT/SGPT) 25 U/L (16-63) 28 U/L (16-63) Alkaline Phosphatase 95 U/L (46-116) 99 U/L (46-116) Total Protein 7.2 g/dL (6.4-8.2) 7.3 g/dL (6.4-8.2) Albumin 3.5 g/dL (3.4-5.0) 3.6 g/dL (3.4-5.0) Albumin/Globulin Ratio 0.9 (1.0-1.7) 1.0 (1.0-1.7) Magnesium Level 2.1 mg/dL (1.8-2.4) Laboratory Tests Test 03/12/20 07:50 White Blood Count 10.9 x10^3/uL (4.0-11.0) Red Blood Count 5.02 x10^6/uL (4.30-5.70) Hemoglobin 14.7 g/dL (13.0-17.5) Hematocrit 42.3 % (39.0-53.0) Mean Corpuscular Volume 84 fL (79-100) Mean Corpuscular Hemoglobin 29 pg (25-35) Mean Corpuscular Hemoglobin Concent 35 g/dL (31-37) Red Cell Distribution Width 15.0 % (11.5-14.5) Platelet Count 247 x10^3/uL (140-400) Neutrophils (%) (Auto) 37 % (31-73) Lymphocytes (%) (Auto) 11 % (24-48) Monocytes (%) (Auto) 5 % (0-9) Eosinophils (%) (Auto) 46 % (0-3) Basophils (%) (Auto) 1 % (0-3) Neutrophils # (Auto) 4.0 x10^3/uL (1.8-7.7) Lymphocytes # (Auto) 1.2 x10^3/uL (1.0-4.8) Monocytes # (Auto) 0.6 x10^3/uL (0.0-1.1) Eosinophils # (Auto) 5.0 x10^3/uL (0.0-0.7) Basophils # (Auto) 0.1 x10^3/uL (0.0-0.2) Sodium Level 141 mmol/L (136-145) Potassium Level 3.4 mmol/L (3.5-5.1) Chloride Level 103 mmol/L (98-107) Carbon Dioxide Level 29 mmol/L (21-32) Anion Gap 9 (6-14) Blood Urea Nitrogen 18 mg/dL (8-26) Creatinine 1.0 mg/dL (0.7-1.3) Estimated GFR (Cockcroft-Gault) 75.7 BUN/Creatinine Ratio 18 (6-20) Glucose Level 111 mg/dL (70-99) Calcium Level 8.8 mg/dL (8.5-10.1) Magnesium Level 2.1 mg/dL (1.8-2.4) Total Bilirubin 0.7 mg/dL (0.2-1.0) Aspartate Amino Transf (AST/SGOT) 30 U/L (15-37) Alanine Aminotransferase (ALT/SGPT) 28 U/L (16-63) Alkaline Phosphatase 99 U/L (46-116) Total Protein 7.3 g/dL (6.4-8.2) Albumin 3.6 g/dL (3.4-5.0) Albumin/Globulin Ratio 1.0 (1.0-1.7) Microbiology 03/06/20 Urine Culture - Final, Complete 03/06/20 Antimicrobic Susceptibility - Final, Complete Medications Current Medications Ketorolac Tromethamine (Toradol 30mg Vial) 30 mg 1X ONCE IVP Last administered on 03/06/20at 17:07; Start 03/06/20 at 17:00; Stop 03/06/20 at 17:04; Status DC Metoclopramide HCl (Reglan Vial) 10 mg 1X ONCE IVP Last administered on 03/06/20at 17:07; Start 03/06/20 at 17:00; Stop 03/06/20 at 17:04; Status DC Sodium Chloride 1,000 ml @ 1,000 mls/hr 1X ONCE IV Last administered on 03/06/20at 17:07; Start 03/06/20 at 17:00; Stop 03/06/20 at 17:59; Status DC Metoclopramide HCl (Reglan Vial) 10 mg STK-MED ONCE .ROUTE ; Start 03/06/20 at 17:05; Stop 03/06/20 at 17:05; Status DC Ketorolac Tromethamine (Toradol 30mg Vial) 30 mg STK-MED ONCE .ROUTE ; Start 03/06/20 at 17:05; Stop 03/06/20 at 17:05; Status DC Haloperidol Lactate (Haldol Inj) 5 mg STK-MED ONCE .ROUTE ; Start 03/06/20 at 17:32; Stop 03/06/20 at 17:32; Status DC Lorazepam (Ativan Inj) 2 mg STK-MED ONCE .ROUTE ; Start 03/06/20 at 17:34; Stop 03/06/20 at 17:35; Status DC Diphenhydramine HCl (Benadryl) 50 mg 1X ONCE IVP ; Start 03/06/20 at 17:45; Stop 03/06/20 at 17:46; Status DC Haloperidol (Haldol) 5 mg 1X PRN PO AGITATION; Start 03/06/20 at 17:45; Status Cancel Lorazepam (Ativan Inj) 2 mg 1X ONCE IVP Last administered on 03/06/20at 17:51; Start 03/06/20 at 17:45; Stop 03/06/20 at 17:48; Status DC Fentanyl Citrate (Fentanyl 2ml Vial) 50 mcg 1X ONCE IVP Last administered on 03/06/20at 17:53; Start 03/06/20 at 17:45; Stop 03/06/20 at 17:48; Status DC Lorazepam (Ativan Inj) 2 mg 1X ONCE IVP Last administered on 03/06/20at 17:52; Start 03/06/20 at 18:00; Stop 03/06/20 at 18:01; Status DC Haloperidol Lactate (Haldol Inj) 5 mg 1X ONCE IVP ; Start 03/06/20 at 18:00; Stop 03/06/20 at 17:56; Status DC Haloperidol Lactate (Haldol Inj) 5 mg 1X ONCE IVP Last administered on 03/06/20at 17:55; Start 03/06/20 at 18:00; Stop 03/06/20 at 18:01; Status DC Methylprednisolone (Medrol) 32 mg 1X ONCE PO Last administered on 03/06/20at 20:46; Start 03/06/20 at 19:30; Stop 03/06/20 at 19:31; Status DC Ondansetron HCl (Zofran) 4 mg PRN Q8HRS PRN IV NAUSEA/VOMITING; Start 03/06/20 at 21:15; Stop 03/07/20 at 21:14; Status DC Lorazepam (Ativan Inj) 4 mg PRN Q2HRS PRN IVP ANXIETY. Last administered on 03/12/20at 02:00; Start 03/06/20 at 22:00; Stop 03/12/20 at 10:44; Status DC Haloperidol Lactate (Haldol Inj) 5 mg PRN Q6HRS PRN IVP AGITATION Last administered on 03/10/20at 19:13; Start 03/06/20 at 22:00; Stop 03/11/20 at 09:42; Status DC Ondansetron HCl (Zofran) 4 mg PRN Q6HRS PRN IVP NAUSEA/VOMITING Last administered on 03/08/20at 16:23; Start 03/06/20 at 22:00 Olanzapine (ZyPREXA IM) 10 mg PRN Q8HRS PRN IM agitation Last administered on 03/11/20at 21:59; Start 03/06/20 at 22:00 Sodium Chloride 1,000 ml @ 100 mls/hr Q10H IV Last administered on 03/06/20at 22:41; Start 03/06/20 at 22:45 Dicyclomine HCl (Bentyl) 10 mg PRN QID PRN PO ABDOMINAL PAIN Last administered on 03/07/20at 19:43; Start 03/07/20 at 19:30; Stop 03/12/20 at 10:44; Status DC Cyclobenzaprine HCl (Flexeril) 10 mg PRN TID PRN PO MUSCLE SPASMS Last administered on 03/09/20at 06:15; Start 03/07/20 at 20:00; Stop 03/10/20 at 18:21; Status DC Oxycodone/ Acetaminophen (Percocet 5/325) 1 tab PRN Q6HRS PRN PO PAIN Last administered on 03/12/20at 08:15; Start 03/07/20 at 20:00; Stop 03/12/20 at 10:41; Status DC Nicotine (Nicoderm Cq 21mg) 1 patch DAILY TD Last administered on 03/12/20at 08:16; Start 03/08/20 at 09:00 Nicotine Polacrilex (Nicorette Gum) 1 each PRN Q1HR PRN BC SMOKING CESSATION Last administered on 03/11/20at 13:13; Start 03/08/20 at 09:00 Pantoprazole Sodium (Protonix) 40 mg DAILYAC PO Last administered on 03/12/20at 08:15; Start 03/08/20 at 10:15 Lidocaine (Lidoderm) 1 patch DAILY TD Last administered on 03/12/20at 08:15; Start 03/09/20 at 09:00 Miscellaneous (Lidoderm Patch Removal) 1 ea QHS MC Last administered on 03/09/20at 21:00; Start 03/08/20 at 21:00 Nitrofurantoin Macrocrystals (Macrobid) 100 mg BID PO Last administered on 03/12/20at 09:41; Start 03/08/20 at 21:00 Barium Sulfate (Polibar Acb) 397 gm 1X ONCE NM ; Start 03/09/20 at 09:30; Stop 03/09/20 at 09:31; Status DC Haloperidol Lactate (Haldol Inj) 10 mg 1X ONCE IM Last administered on 03/09/20at 21:50; Start 03/09/20 at 22:00; Stop 03/09/20 at 22:01; Status DC Diphenhydramine HCl (Benadryl Oral Elixir) 25 mg PRN Q4HRS PRN PO ITCHING Last administered on 03/10/20at 21:14; Start 03/10/20 at 02:30; Stop 03/12/20 at 10:44; Status DC Midazolam HCl (Versed) 2 mg 1X ONCE IV ; Start 03/10/20 at 05:30; Stop 03/10/20 at 05:40; Status DC Ziprasidone (Geodon Im) 10 mg PRN Q2HR PRN IM AGITATION Last administered on 03/10/20at 16:05; Start 03/10/20 at 06:15; Stop 03/11/20 at 09:42; Status DC Olanzapine (ZyPREXA) 5 mg BID PO Last administered on 03/12/20at 08:15; Start 03/11/20 at 10:00; Stop 03/12/20 at 10:44; Status DC Haloperidol Lactate (Haldol Inj) 2 mg PRN Q15MIN PRN IM/IV ANXIETY / AGITATION Last administered on 03/12/20at 02:06; Start 03/11/20 at 21:15; Stop 03/12/20 at 02:06; Status DC Potassium Chloride (Klor-Con) 40 meq 1X ONCE PO Last administered on 03/12/20at 11:36; Start 03/12/20 at 10:45; Stop 03/12/20 at 10:51; Status DC Methadone HCl (Dolophine) 40 mg DAILY PO Last administered on 03/12/20at 11:36; Start 03/12/20 at 10:45 Gabapentin (Neurontin) 600 mg TID PO Last administered on 03/12/20at 13:29; Start 03/12/20 at 10:45 Sertraline HCl (Zoloft) 50 mg DAILY PO Last administered on 03/12/20at 11:36; Start 03/12/20 at 10:45 Trazodone HCl (Desyrel) 150 mg QHS PO ; Start 03/12/20 at 21:00 [place] Carbonate (Lithobid) 300 mg BID PO Last administered on 03/12/20at 11:35; Start 03/12/20 at 10:45 Vitals/I & O Vital Sign - Last 24 Hours 03/11/20 03/11/20 03/11/20 03/11/20 15:00 19:25 20:00 21:30 Temp 98.7 98.7 Pulse 119 115 Resp 20 20 20 B/P (MAP) 123/92 (102) 157/98 (117) Pulse Ox 96 98 98 O2 Delivery Room Air Room Air Room Air Room Air 03/11/20 03/11/20 03/12/20 03/12/20 22:30 23:48 03:33 07:00 Temp 98.1 98.0 98.1 98.0 Pulse 123 96 Resp 20 23 21 20 B/P (MAP) 156/116 (129) 127/85 (99) 154/119 (131) Pulse Ox 99 99 98 100 O2 Delivery Room Air Room Air Room Air Room Air O2 Flow Rate 99.0 03/12/20 03/12/20 03/12/20 08:00 08:15 11:00 Temp 97.7 97.7 Pulse 86 Resp 18 B/P (MAP) 132/85 (101) Pulse Ox 99 O2 Delivery Room Air Room Air Room Air Intake and Output 03/11/20 03/11/20 03/12/20 15:00 23:00 07:00 Intake Total 100 ml 1050 ml Output Total 200 ml Balance 100 ml 850 ml Justifications for Admission Other Justification MAGALY BOWMAN MD Mar 12, 2020 13:37
[2020-03-12] MEDS: traMADol 50 MG TABLET PO PRN ×2 (17:11→23:16)
--- NOTE | 2020-03-12 17:33 | NUR ---
SW following. Spoke with RN and reviewed chart. Pt on a 1L1 with restraints. PAT team following. SW following.
--- NOTE | 2020-03-12 18:19 | PDOC ---
F/U PHYSCH PROG NOTE Subjective: Gentleman is seen for routine follow-up. Progress is reviewed with nursing staff. According to the report, he continues to be delirious trying to leave the room and noncompliant. When seen, he appears drowsy and disoriented. He is not very receptive to the communication. At times mumbling and talking irrelevantly. Talking about [employer]. Denies suicidal or homicidal thoughts. At times appears to be reacting to internal stimuli. Objective: 14 point review of system is otherwise negative except for stated above. Vital Signs: Vital Signs Date Time Temp Pulse Resp B/P (MAP) Pulse Ox O2 Delivery O2 Flow Rate FiO2 03/12/20 11:00 97.7 86 18 132/85 (101) 99 Room Air 97.7 03/11/20 22:30 99.0 Labs: Laboratory Tests Test 03/12/20 07:50 White Blood Count 10.9 x10^3/uL (4.0-11.0) Red Blood Count 5.02 x10^6/uL (4.30-5.70) Hemoglobin 14.7 g/dL (13.0-17.5) Hematocrit 42.3 % (39.0-53.0) Mean Corpuscular Volume 84 fL (79-100) Mean Corpuscular Hemoglobin 29 pg (25-35) Mean Corpuscular Hemoglobin Concent 35 g/dL (31-37) Red Cell Distribution Width 15.0 % (11.5-14.5) H Platelet Count 247 x10^3/uL (140-400) Neutrophils (%) (Auto) 37 % (31-73) Lymphocytes (%) (Auto) 11 % (24-48) L Monocytes (%) (Auto) 5 % (0-9) Eosinophils (%) (Auto) 46 % (0-3) H Basophils (%) (Auto) 1 % (0-3) Neutrophils # (Auto) 4.0 x10^3/uL (1.8-7.7) Lymphocytes # (Auto) 1.2 x10^3/uL (1.0-4.8) Monocytes # (Auto) 0.6 x10^3/uL (0.0-1.1) Eosinophils # (Auto) 5.0 x10^3/uL (0.0-0.7) H Basophils # (Auto) 0.1 x10^3/uL (0.0-0.2) Sodium Level 141 mmol/L (136-145) Potassium Level 3.4 mmol/L (3.5-5.1) L Chloride Level 103 mmol/L (98-107) Carbon Dioxide Level 29 mmol/L (21-32) Anion Gap 9 (6-14) Blood Urea Nitrogen 18 mg/dL (8-26) Creatinine 1.0 mg/dL (0.7-1.3) Estimated GFR (Cockcroft-Gault) 75.7 BUN/Creatinine Ratio 18 (6-20) Glucose Level 111 mg/dL (70-99) H Calcium Level 8.8 mg/dL (8.5-10.1) Magnesium Level 2.1 mg/dL (1.8-2.4) Total Bilirubin 0.7 mg/dL (0.2-1.0) Aspartate Amino Transferase (AST) 30 U/L (15-37) Alanine Aminotransferase (ALT) 28 U/L (16-63) Alkaline Phosphatase 99 U/L (46-116) Total Protein 7.3 g/dL (6.4-8.2) Albumin 3.6 g/dL (3.4-5.0) Albumin/Globulin Ratio 1.0 (1.0-1.7) Laboratory Tests 03/12/20 07:50 Laboratory Tests 03/12/20 07:50 Medications: Current Medications Medications (Trade) Dose Ordered Sig/Arabella Start Time Stop Time Status Last Admin Dose Admin Barium Sulfate (Polibar Acb) 397 gm 1X ONCE 03/09/20 09:30 03/09/20 09:31 DC Cyclobenzaprine HCl (Flexeril) 10 mg PRN TID PRN 03/07/20 20:00 03/10/20 18:21 DC 03/09/20 06:15 10 MG Dicyclomine HCl (Bentyl) 10 mg PRN QID PRN 03/07/20 19:30 03/12/20 10:44 DC 03/07/20 19:43 10 MG Diphenhydramine HCl (Benadryl Oral Elixir) 25 mg PRN Q4HRS PRN 03/10/20 02:30 03/12/20 10:44 DC 03/10/20 21:14 25 MG Diphenhydramine HCl (Benadryl) 50 mg 1X ONCE 03/06/20 17:45 03/06/20 17:46 DC Fentanyl Citrate (Fentanyl 2ml Vial) 50 mcg 1X ONCE 03/06/20 17:45 03/06/20 17:48 DC 03/06/20 17:53 50 MCG Gabapentin (Neurontin) 600 mg TID 03/12/20 10:45 03/12/20 13:29 600 MG Haloperidol (Haldol) 5 mg 1X PRN 03/06/20 17:45 Cancel Haloperidol Lactate (Haldol Inj) 2 mg PRN Q15MIN PRN 03/11/20 21:15 03/12/20 02:06 DC 03/12/20 02:06 2 MG Ketorolac Tromethamine (Toradol 30mg Vial) 30 mg STK-MED ONCE 03/06/20 17:05 03/06/20 17:05 DC Lidocaine (Lidoderm) 1 patch DAILY 03/09/20 09:00 03/12/20 08:15 1 PATCH Biron Carbonate (Lithobid) 300 mg BID 03/12/20 10:45 03/12/20 11:35 300 MG Lorazepam (Ativan Inj) 4 mg PRN Q2HRS PRN 03/06/20 22:00 03/12/20 10:44 DC 03/12/20 02:00 4 MG Methadone HCl (Dolophine) 40 mg DAILY 03/12/20 10:45 03/12/20 11:36 40 MG Methylprednisolone (Medrol) 32 mg 1X ONCE 03/06/20 19:30 03/06/20 19:31 DC 03/06/20 20:46 32 MG Metoclopramide HCl (Reglan Vial) 10 mg STK-MED ONCE 03/06/20 17:05 03/06/20 17:05 DC Midazolam HCl (Versed) 2 mg 1X ONCE 03/10/20 05:30 03/10/20 05:40 DC Miscellaneous (Lidoderm Patch Removal) 1 ea QHS 03/08/20 21:00 03/09/20 21:00 1 EA Nicotine (Nicoderm Cq 21mg) 1 patch DAILY 03/08/20 09:00 03/12/20 08:16 1 PATCH Nicotine Polacrilex (Nicorette Gum) 1 each PRN Q1HR PRN 03/08/20 09:00 03/11/20 13:13 1 EACH Nitrofurantoin Macrocrystals (Macrobid) 100 mg BID 03/08/20 21:00 03/12/20 09:41 100 MG Olanzapine (ZyPREXA IM) 10 mg PRN Q8HRS PRN 03/06/20 22:00 03/11/20 21:59 10 MG Olanzapine (ZyPREXA) 5 mg BID 03/11/20 10:00 03/12/20 10:44 DC 03/12/20 08:15 5 MG Ondansetron HCl (Zofran) 4 mg PRN Q6HRS PRN 03/06/20 22:00 03/08/20 16:23 4 MG Oxycodone/ Acetaminophen (Percocet 5/325) 1 tab PRN Q6HRS PRN 03/07/20 20:00 03/12/20 10:41 DC 03/12/20 08:15 1 TAB Pantoprazole Sodium (Protonix) 40 mg DAILYAC 03/08/20 10:15 03/12/20 08:15 40 MG Potassium Chloride (Klor-Con) 40 meq 1X ONCE 03/12/20 10:45 03/12/20 10:51 DC 03/12/20 11:36 40 MEQ Sertraline HCl (Zoloft) 50 mg DAILY 03/12/20 10:45 03/12/20 11:36 50 MG Sodium Chloride 1,000 ml @ 100 mls/hr Q10H 03/06/20 22:45 03/12/20 16:20 DC 03/06/20 22:41 100 MLS/HR Tramadol HCl (Ultram) 50 mg PRN Q6HRS PRN 03/12/20 16:45 03/12/20 17:11 50 MG Trazodone HCl (Desyrel) 150 mg QHS 03/12/20 21:00 Ziprasidone (Geodon Im) 10 mg PRN Q2HR PRN 03/10/20 06:15 03/11/20 09:42 DC 03/10/20 16:05 10 MG Physical Exam: Mental Status Exam: gentleman appears older than his stated age Cooperative but distracted Disoriented Denies suicidal or homicidal thoughts presently. Denies auditory or visual hallucinations No abnormal perception noted Mood is dysphoric Affect is dysthymic Insight and judgment impulse control are fair Attention span and concentration fair Recent and remote memory intac Physical Exam: Refer to Physician's note. [employer]ER: No focal deficit MSK: No EPS, TDK, or abnormal involuntary movements Diagnosis: Acute delirium, likely multifactorial, hyperactive Major depressive disorder, recurrent, severe without psychotic features. Generalized anxiety disorder. PTSD. . Assessment: He is a well-educated gentleman with history of multiple psychiatric c omorbidities who was on methadone treatment admitted with intractable back pain and suicidality. His suicidality likely correlates with his pain severity. Adamantly denies any suicidal thoughts when not in pain. However, he is no intentions to . Intent is reportedly 0/10. 03/09/2020. Patient appear lot more disturbed, disoriented and having behavioral issues. 03/12/2020: He continues to be disoriented with altered mental status. Talking irrelevantly reacting to internal stimuli. Recently methadone and lithium are restarted. Plan: Plan: Continue medications as prescribed. Continue hospitalization for safety and crisis stabilization. Psychoeducation provided. Supportive psychotherapy provided. Continue outpatient medications including psychotropics as is. Risk, benefits, alternatives of the treatment are discussed. Adverse drug reaction of the medications are also discussed CHRISTO MENSAH MD Mar 12, 2020 18:19
[2020-03-12 21:00] VITALS: BP 140/85
[2020-03-12] MEDS: PATCH REMOVAL. MC SCH (21:00)
[2020-03-12] MEDS: traZODone 100 MG TABLET. PO SCH ×2 (21:07→23:10)
[2020-03-13] VITALS (7 sets, daily range): BP systolic 119–148; BP diastolic 70–98
[2020-03-13 04:22] LABS: BASO # 0.1 x10^3/uL (0.0-0.2); BASO % 1 % (0-3); EOS # 5.1 x10^3/uL (0.0-0.7); EOS % 45 % (0-3); HEMATOCRIT 40.6 % (39.0-53.0); HEMOGLOBIN 13.3 g/dL (13.0-17.5); LYMPH % 18 % (24-48); MEAN CORPUSCULAR HEMOGLOBIN 28 pg (25-35); MEAN CORPUSCULAR HGB CONC 33 g/dL (31-37); MEAN CORPUSCULAR VOLUME 85 fL (79-100); MONO # 0.6 x10^3/uL (0.0-1.1); MONO % 6 % (0-9); NEUT # 3.5 x10^3/uL (1.8-7.7); NEUT % 31 % (31-73); PLATELET COUNT 205 x10^3/uL (140-400); RED BLOOD COUNT 4.76 x10^6/uL (4.30-5.70); RED CELL DISTRIBUTION WIDTH 15.4 % (11.5-14.5); WHITE BLOOD COUNT 11.3 x10^3/uL (4.0-11.0)
[2020-03-13 04:51] LABS: ALBUMIN 3.4 g/dL (3.4-5.0); ALBUMIN/GLOBULIN RATIO 1.1 (1.0-1.7); CALCIUM 8.9 mg/dL (8.5-10.1); GFR 75.7; POTASSIUM 4.1 mmol/L (3.5-5.1); TOTAL BILIRUBIN 0.4 mg/dL (0.2-1.0); TOTAL PROTEIN 6.5 g/dL (6.4-8.2)
--- NOTE | 2020-03-13 08:18 | PDOC ---
[employer] PROGRESS NOTE Date of Service DOS: DATE: 03/13/20 TIME: 08:18 Chief Complaint Chief Complaint A/P: Flank pain wall thickening of the visualized distal esophagus, could be due to esophagitis, cannot accurately exclude underlying mass. There is small hiatal hernia. Mild wall thickening of the distal thoracic esophagus could reflect esophagitis in setting of a moderate sized hiatal hernia.on UGI 03/10 MAJOR DEPRESSION WITH SI Tobacco abuse NO MICROHEMATURIA Advanced multilevel lumbar spondylosis with rightward curvature. Suicidal ideation plan consult psych, try transfer to [facility] Medically stable for discharge to psych 37 min pt exam, chart review, > 50% of time spent with exam, chart review, pt care coordination 64-year-old male well on high dose methadone FOR BACK PAIN . 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 presents with abdominal pain. We are concerned he could have kidney stone. We tried to scan him in the ER, but he could not sit still. Then he explained to the nurses that he was suicidal. He got a little agitated. We had to call security. Now we have given some Ativan and Haldol in the ER, he is calm NOW admit the patient. PAST MEDICAL HISTORY: Anxiety, depression, PTSD, chronic pain, narcotic dependence. I suspect he may have done heroin in the past, but I am not clear on that. Bone graft, left liver surgery, current tobacco abuse. ALLERGIES: PENICILLIN AND SULFA. FAMILY HISTORY: Coronary disease. SOCIAL HISTORY: He smokes and drinks. 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 03/12: He is able to discuss discharge from inpatient psychiatry 02/03/2020 [facility] on 300 mg lithium twice daily 600 mg gabapentin 3 times daily, trazodone 150 mg nightly, Zoloft 50 mg daily, hydroxyzine 25 mg 3 times daily as needed and methadone 75 mg p.o. daily. He has cut down his methadone dosing as his last fill was on 02/15/2020. He is feeling more clear headed, still with suicidal thoughts. Asking for pain medication less often. Did not sleep well last night, asking to sleep now. Medically stable for discharge to [facility] Vitals/I&O Vitals/I&O: Vital Signs Date Time Temp Pulse Resp B/P (MAP) Pulse Ox O2 Delivery O2 Flow Rate FiO2 03/13/20 03:00 97.8 95 18 148/98 (115) 100 Room Air 97.8 I & O 03/12/20 03/12/20 03/13/20 15:00 23:00 07:00 Intake Total 250 ml 350 ml 880 ml Output Total 1 ml Balance 250 ml 350 ml 879 ml Physical Exam Physical Exam: IN 4 PT RESTRAINTS General: Alert, Oriented X3, Cooperative, No acute distress, Other (frustrated) Heart: Regular rate, Normal S1, Other (tachy) Lungs: Clear Abdomen: Normal bowel sounds, Soft, Other (flank pain) Extremities: No clubbing, No cyanosis, No edema Skin: No rashes Labs Labs: Laboratory Tests Test 03/13/20 03:05 White Blood Count 11.3 x10^3/uL (4.0-11.0) Red Blood Count 4.76 x10^6/uL (4.30-5.70) Hemoglobin 13.3 g/dL (13.0-17.5) Hematocrit 40.6 % (39.0-53.0) Mean Corpuscular Volume 85 fL (79-100) Mean Corpuscular Hemoglobin 28 pg (25-35) Mean Corpuscular Hemoglobin Concent 33 g/dL (31-37) Red Cell Distribution Width 15.4 % (11.5-14.5) Platelet Count 205 x10^3/uL (140-400) Neutrophils (%) (Auto) 31 % (31-73) Lymphocytes (%) (Auto) 18 % (24-48) Monocytes (%) (Auto) 6 % (0-9) Eosinophils (%) (Auto) 45 % (0-3) Basophils (%) (Auto) 1 % (0-3) Neutrophils # (Auto) 3.5 x10^3/uL (1.8-7.7) Lymphocytes # (Auto) 2.0 x10^3/uL (1.0-4.8) Monocytes # (Auto) 0.6 x10^3/uL (0.0-1.1) Eosinophils # (Auto) 5.1 x10^3/uL (0.0-0.7) Basophils # (Auto) 0.1 x10^3/uL (0.0-0.2) Sodium Level 139 mmol/L (136-145) Potassium Level 4.1 mmol/L (3.5-5.1) Chloride Level 103 mmol/L (98-107) Carbon Dioxide Level 28 mmol/L (21-32) Anion Gap 8 (6-14) Blood Urea Nitrogen 21 mg/dL (8-26) Creatinine 1.0 mg/dL (0.7-1.3) Estimated GFR (Cockcroft-Gault) 75.7 BUN/Creatinine Ratio 21 (6-20) Glucose Level 94 mg/dL (70-99) Calcium Level 8.9 mg/dL (8.5-10.1) Total Bilirubin 0.4 mg/dL (0.2-1.0) Aspartate Amino Transf (AST/SGOT) 24 U/L (15-37) Alanine Aminotransferase (ALT/SGPT) 29 U/L (16-63) Alkaline Phosphatase 111 U/L (46-116) Total Protein 6.5 g/dL (6.4-8.2) Albumin 3.4 g/dL (3.4-5.0) Albumin/Globulin Ratio 1.1 (1.0-1.7) Assessment and Plan Assessmemt and Plan Problems Medical Problems: (1) Degenerative disc disease, lumbar Status: Acute (2) Intractable back pain Status: Acute (3) Suicidal behavior Status: Acute Comment Review of Relevant I have reviewed the following items laura (where applicable) has been applied. Medications: Current Medications Medications (Trade) Dose Ordered Sig/Arabella Route PRN Reason Start Time Stop Time Status Last Admin Dose Admin Potassium Chloride (Klor-Con) 40 meq 1X ONCE PO 03/12/20 10:45 03/12/20 10:51 DC 03/12/20 11:36 Methadone HCl (Dolophine) 40 mg DAILY PO 03/12/20 10:45 03/12/20 11:36 Gabapentin (Neurontin) 600 mg TID PO 03/12/20 10:45 03/12/20 23:11 Sertraline HCl (Zoloft) 50 mg DAILY PO 03/12/20 10:45 03/12/20 11:36 Trazodone HCl (Desyrel) 150 mg QHS PO 03/12/20 21:00 03/12/20 23:10 Rose Carbonate (Lithobid) 300 mg BID PO 03/12/20 10:45 03/12/20 23:10 Tramadol HCl (Ultram) 50 mg PRN Q6HRS PRN PO PAIN 03/12/20 16:45 03/12/20 23:16 Justifications for Admission Other Justification CARMEN LIANG MD Mar 13, 2020 08:18
[2020-03-13] MEDS: METHADONE 10 MG TABLET. PO SCH (09:09)
[2020-03-13] MEDS: NITROFURANTOIN MONOHYD/M-CRYST 100 MG CAPSULE. PO SCH ×2 (09:09→21:06)
[2020-03-13] MEDS: SERTRALINE 50 MG TABLET. PO SCH (09:09)
[2020-03-13] MEDS: LIDOCAINE (700MG/PATCH) PATCH. TD SCH (09:10)
[2020-03-13] MEDS: PANTOPRAZOLE 40 MG TABLET.DR. PO SCH (09:10)
[2020-03-13] MEDS: GABAPENTIN 300 MG CAPSULE. PO SCH ×3 (09:10→21:06)
[2020-03-13] MEDS: LITHIUM CARBONATE ER 300 MG TABLET.ER PO SCH ×2 (09:10→21:07)
[2020-03-13] MEDS: NICOTINE 21MG PATCH. TD SCH (09:10)
--- NOTE | 2020-03-13 11:12 | PDOC ---
Date of Service: DATE: 03/13/20 TIME: 11:10 Objective: Objective: Per 1:1 sitter - no swallowing issues. Stool charted today. Vital Signs: Vital Signs Date Time Temp Pulse Resp B/P (MAP) Pulse Ox O2 Delivery O2 Flow Rate FiO2 03/13/20 08:00 Room Air 03/13/20 07:00 97.8 73 18 119/78 (92) 92 97.8 Labs: Laboratory Tests Test 03/13/20 03:05 White Blood Count 11.3 x10^3/uL Red Blood Count 4.76 x10^6/uL Hemoglobin 13.3 g/dL Hematocrit 40.6 % Mean Corpuscular Volume 85 fL Mean Corpuscular Hemoglobin 28 pg Mean Corpuscular Hemoglobin Concent 33 g/dL Red Cell Distribution Width 15.4 % Platelet Count 205 x10^3/uL Neutrophils (%) (Auto) 31 % Lymphocytes (%) (Auto) 18 % Monocytes (%) (Auto) 6 % Eosinophils (%) (Auto) 45 % Basophils (%) (Auto) 1 % Neutrophils # (Auto) 3.5 x10^3/uL Lymphocytes # (Auto) 2.0 x10^3/uL Monocytes # (Auto) 0.6 x10^3/uL Eosinophils # (Auto) 5.1 x10^3/uL Basophils # (Auto) 0.1 x10^3/uL Sodium Level 139 mmol/L Potassium Level 4.1 mmol/L Chloride Level 103 mmol/L Carbon Dioxide Level 28 mmol/L Anion Gap 8 Blood Urea Nitrogen 21 mg/dL Creatinine 1.0 mg/dL Estimated GFR (Cockcroft-Gault) 75.7 BUN/Creatinine Ratio 21 Glucose Level 94 mg/dL Calcium Level 8.9 mg/dL Total Bilirubin 0.4 mg/dL Aspartate Amino Transf (AST/SGOT) 24 U/L Alanine Aminotransferase (ALT/SGPT) 29 U/L Alkaline Phosphatase 111 U/L Total Protein 6.5 g/dL Albumin 3.4 g/dL Albumin/Globulin Ratio 1.1 PE: GEN: NAD NEURO/PSYCH: sleeping - did not awaken A/P: Chronic pain MDD, GAS, PTSD UTI GERD, abnormal esophagus imaging (possible esophagitis w/ hiatal hernia as above) - no dysphagia/odynophagia -- Continue PPI. Justicifation of Admission Dx: Justifications for Admission: Justification of Admission Dx: Yes ANA RODRIGUEZ Mar 13, 2020 11:12
--- NOTE | 2020-03-13 13:00 | CARD ---
MR#: [id number] Date of Study: 03/12/2020 Ordering Physician: ROSA MARIA ULLOA, Referring Physician: ROSA MARIA ULLOA, Tech: Renata Lynch APPROVED REPORT EXAM: Two-dimensional and M-mode echocardiogram with Doppler and color Doppler. Other Information Quality : AverageHR: 87bpm INDICATION Arrhythmia Tackycardia 2D DIMENSIONS RVDd2.8 (2.9-3.5cm)Left Atrium(2D)3.0 (1.6-4.0cm) IVSd1.1 (0.7-1.1cm)Aortic Root(2D)3.6 (2.0-3.7cm) LVDd4.0 (3.9-5.9cm)LVOT Diameter2.1 (1.8-2.4cm) PWd1.0 (0.7-1.1cm)LVDs3.1 (2.5-4.0cm) FS (%) 24.5 %SV35.4 ml Aortic Valve AoV Peak Fidencio.83.4cm/sAoV VTI14.7cm AO Peak GR.2.8mmHgLVOT VTI 13.86cm AO Mean GR.2mmHg Mitral Valve MV E Qsrjistv74.7cm/sMV E Peak Gr.4mmHg MV DECEL [id number] A Mcbllgkq91.1cm/s MV E Mean Gr.2mmHgE/A Ratio0.7 TDI Lateral E' P. V7.59cm/sMedial E' P. V7.98cm/s E/Lateral E'7.6E/Medial E'7.2 Tricuspid Valve TR P. [id number] [id number] TR Peak Gr.[id number] LEFT VENTRICLE The left ventricle is normal size. There is borderline concentric left ventricular hypertrophy. The l eft ventricular systolic function is low normal. The Ejection Fraction is estimated at 50%. Septal mo tion consistent with conduction abnormality. Transmitral Doppler flow pattern is Grade I-abnormal rel axation pattern. RIGHT VENTRICLE The right ventricle is borderline dilated. There is normal right ventricular wall thickness. The righ t ventricular systolic function is normal. ATRIA Significant calcification in the wall of the left atrium but no masses seen. The right atrium size is normal. The interatrial septum is intact with no evidence for an atrial septal defect or patent fora men ovale as noted on 2-D or Doppler imaging. AORTIC VALVE The aortic valve is normal in structure and function. Doppler and Color Flow revealed no significant aortic regurgitation. There is no significant aortic valvular stenosis. Calculated aortic valve area is 3.37 cm2 with maximum pressure gradient of 4 mmHg and mean pressure gradient of 2 mmHg. MITRAL VALVE The mitral valve is normal in structure and function. There is no evidence of mitral valve prolapse. There is no mitral valve stenosis. Doppler and Color Flow revealed no mitral valve regurgitation note d. TRICUSPID VALVE The tricuspid valve is normal in structure and function. Doppler and Color Flow revealed trace tricus pid regurgitation with an estimated PAP of 23 mmHg. There is no tricuspid valve stenosis. PULMONIC VALVE The pulmonic valve is not well visualized. Doppler and Color Flow revealed no pulmonic valvular regur gitation. GREAT VESSELS The aortic root is normal in size. The ascending aorta is normal in size. The IVC is normal in size a nd collapses >50% with inspiration. PERICARDIAL EFFUSION There is no evidence of significant pericardial effusion. Critical Notification Critical Value: No <Conclusion> The left ventricle is normal size. The left ventricular systolic function is low normal. The Ejection Fraction is estimated at 50%. Septal motion consistent with conduction abnormality. There is borderline concentric left ventricular hypertrophy. Significant calcification in the wall of the left atrium but no masses seen. Doppler and Color Flow revealed no significant aortic regurgitation. There is no significant aortic valvular stenosis. Doppler and Color Flow revealed no mitral valve regurgitation noted. Doppler and Color Flow revealed trace tricuspid regurgitation with an estimated PAP of 23 mmHg. Signed by : Amador Escobedo MD Electronically Approved : 03/13/2020 13:00:22
--- NOTE | 2020-03-13 14:13 | PDOC ---
PROGRESS NOTES Date of Service DATE: 03/13/20 TIME: 14:12 Subjective Subjective No new complaints. Objective Objective Vital Signs Date Time Temp Pulse Resp B/P (MAP) Pulse Ox O2 Delivery O2 Flow Rate FiO2 03/13/20 11:00 97.8 74 18 122/70 (87) 92 Room Air 97.8 03/11/20 22:30 99.0 Intake and Output 03/13/20 07:00 Intake Total 1480 ml Output Total 1 ml Balance 1479 ml Intake Oral 1480 ml Output Urine Total 1 ml # Voids 11 # Bowel Movements 1 Physical Exam Physical Exam He is alert,sitting at edge of bed and does not seem to be in any distress. Assessment Assessment Problems Medical Problems: (1) Degenerative disc disease, lumbar Status: Acute (2) Intractable back pain Status: Acute (3) Suicidal behavior Status: Acute Plan Plan of Care To SNF when medically stable. Comment Review of Relevant I have reviewed the following items laura (where applicable) has been applied. Labs Laboratory Tests Test 03/12/20 07:50 03/13/20 03:05 White Blood Count 10.9 x10^3/uL (4.0-11.0) 11.3 x10^3/uL (4.0-11.0) Red Blood Count 5.02 x10^6/uL (4.30-5.70) 4.76 x10^6/uL (4.30-5.70) Hemoglobin 14.7 g/dL (13.0-17.5) 13.3 g/dL (13.0-17.5) Hematocrit 42.3 % (39.0-53.0) 40.6 % (39.0-53.0) Mean Corpuscular Volume 84 fL (79-100) 85 fL (79-100) Mean Corpuscular Hemoglobin 29 pg (25-35) 28 pg (25-35) Mean Corpuscular Hemoglobin Concent 35 g/dL (31-37) 33 g/dL (31-37) Red Cell Distribution Width 15.0 % (11.5-14.5) 15.4 % (11.5-14.5) Platelet Count 247 x10^3/uL (140-400) 205 x10^3/uL (140-400) Neutrophils (%) (Auto) 37 % (31-73) 31 % (31-73) Lymphocytes (%) (Auto) 11 % (24-48) 18 % (24-48) Monocytes (%) (Auto) 5 % (0-9) 6 % (0-9) Eosinophils (%) (Auto) 46 % (0-3) 45 % (0-3) Basophils (%) (Auto) 1 % (0-3) 1 % (0-3) Neutrophils # (Auto) 4.0 x10^3/uL (1.8-7.7) 3.5 x10^3/uL (1.8-7.7) Lymphocytes # (Auto) 1.2 x10^3/uL (1.0-4.8) 2.0 x10^3/uL (1.0-4.8) Monocytes # (Auto) 0.6 x10^3/uL (0.0-1.1) 0.6 x10^3/uL (0.0-1.1) Eosinophils # (Auto) 5.0 x10^3/uL (0.0-0.7) 5.1 x10^3/uL (0.0-0.7) Basophils # (Auto) 0.1 x10^3/uL (0.0-0.2) 0.1 x10^3/uL (0.0-0.2) Sodium Level 141 mmol/L (136-145) 139 mmol/L (136-145) Potassium Level 3.4 mmol/L (3.5-5.1) 4.1 mmol/L (3.5-5.1) Chloride Level 103 mmol/L (98-107) 103 mmol/L (98-107) Carbon Dioxide Level 29 mmol/L (21-32) 28 mmol/L (21-32) Anion Gap 9 (6-14) 8 (6-14) Blood Urea Nitrogen 18 mg/dL (8-26) 21 mg/dL (8-26) Creatinine 1.0 mg/dL (0.7-1.3) 1.0 mg/dL (0.7-1.3) Estimated GFR (Cockcroft-Gault) 75.7 75.7 BUN/Creatinine Ratio 18 (6-20) 21 (6-20) Glucose Level 111 mg/dL (70-99) 94 mg/dL (70-99) Calcium Level 8.8 mg/dL (8.5-10.1) 8.9 mg/dL (8.5-10.1) Magnesium Level 2.1 mg/dL (1.8-2.4) Total Bilirubin 0.7 mg/dL (0.2-1.0) 0.4 mg/dL (0.2-1.0) Aspartate Amino Transf (AST/SGOT) 30 U/L (15-37) 24 U/L (15-37) Alanine Aminotransferase (ALT/SGPT) 28 U/L (16-63) 29 U/L (16-63) Alkaline Phosphatase 99 U/L (46-116) 111 U/L (46-116) Total Protein 7.3 g/dL (6.4-8.2) 6.5 g/dL (6.4-8.2) Albumin 3.6 g/dL (3.4-5.0) 3.4 g/dL (3.4-5.0) Albumin/Globulin Ratio 1.0 (1.0-1.7) 1.1 (1.0-1.7) Laboratory Tests Test 03/13/20 03:05 White Blood Count 11.3 x10^3/uL (4.0-11.0) Red Blood Count 4.76 x10^6/uL (4.30-5.70) Hemoglobin 13.3 g/dL (13.0-17.5) Hematocrit 40.6 % (39.0-53.0) Mean Corpuscular Volume 85 fL (79-100) Mean Corpuscular Hemoglobin 28 pg (25-35) Mean Corpuscular Hemoglobin Concent 33 g/dL (31-37) Red Cell Distribution Width 15.4 % (11.5-14.5) Platelet Count 205 x10^3/uL (140-400) Neutrophils (%) (Auto) 31 % (31-73) Lymphocytes (%) (Auto) 18 % (24-48) Monocytes (%) (Auto) 6 % (0-9) Eosinophils (%) (Auto) 45 % (0-3) Basophils (%) (Auto) 1 % (0-3) Neutrophils # (Auto) 3.5 x10^3/uL (1.8-7.7) Lymphocytes # (Auto) 2.0 x10^3/uL (1.0-4.8) Monocytes # (Auto) 0.6 x10^3/uL (0.0-1.1) Eosinophils # (Auto) 5.1 x10^3/uL (0.0-0.7) Basophils # (Auto) 0.1 x10^3/uL (0.0-0.2) Sodium Level 139 mmol/L (136-145) Potassium Level 4.1 mmol/L (3.5-5.1) Chloride Level 103 mmol/L (98-107) Carbon Dioxide Level 28 mmol/L (21-32) Anion Gap 8 (6-14) Blood Urea Nitrogen 21 mg/dL (8-26) Creatinine 1.0 mg/dL (0.7-1.3) Estimated GFR (Cockcroft-Gault) 75.7 BUN/Creatinine Ratio 21 (6-20) Glucose Level 94 mg/dL (70-99) Calcium Level 8.9 mg/dL (8.5-10.1) Total Bilirubin 0.4 mg/dL (0.2-1.0) Aspartate Amino Transf (AST/SGOT) 24 U/L (15-37) Alanine Aminotransferase (ALT/SGPT) 29 U/L (16-63) Alkaline Phosphatase 111 U/L (46-116) Total Protein 6.5 g/dL (6.4-8.2) Albumin 3.4 g/dL (3.4-5.0) Albumin/Globulin Ratio 1.1 (1.0-1.7) Microbiology 03/06/20 Urine Culture - Final, Complete 03/06/20 Antimicrobic Susceptibility - Final, Complete Medications Current Medications Ketorolac Tromethamine (Toradol 30mg Vial) 30 mg 1X ONCE IVP Last administered on 03/06/20at 17:07; Start 03/06/20 at 17:00; Stop 03/06/20 at 17:04; Status DC Metoclopramide HCl (Reglan Vial) 10 mg 1X ONCE IVP Last administered on 03/06/20at 17:07; Start 03/06/20 at 17:00; Stop 03/06/20 at 17:04; Status DC Sodium Chloride 1,000 ml @ 1,000 mls/hr 1X ONCE IV Last administered on 03/06/20at 17:07; Start 03/06/20 at 17:00; Stop 03/06/20 at 17:59; Status DC Metoclopramide HCl (Reglan Vial) 10 mg STK-MED ONCE .ROUTE ; Start 03/06/20 at 17:05; Stop 03/06/20 at 17:05; Status DC Ketorolac Tromethamine (Toradol 30mg Vial) 30 mg STK-MED ONCE .ROUTE ; Start 03/06/20 at 17:05; Stop 03/06/20 at 17:05; Status DC Haloperidol Lactate (Haldol Inj) 5 mg STK-MED ONCE .ROUTE ; Start 03/06/20 at 17:32; Stop 03/06/20 at 17:32; Status DC Lorazepam (Ativan Inj) 2 mg STK-MED ONCE .ROUTE ; Start 03/06/20 at 17:34; Stop 03/06/20 at 17:35; Status DC Diphenhydramine HCl (Benadryl) 50 mg 1X ONCE IVP ; Start 03/06/20 at 17:45; Stop 03/06/20 at 17:46; Status DC Haloperidol (Haldol) 5 mg 1X PRN PO AGITATION; Start 03/06/20 at 17:45; Status Cancel Lorazepam (Ativan Inj) 2 mg 1X ONCE IVP Last administered on 03/06/20at 17:51; Start 03/06/20 at 17:45; Stop 03/06/20 at 17:48; Status DC Fentanyl Citrate (Fentanyl 2ml Vial) 50 mcg 1X ONCE IVP Last administered on 03/06/20at 17:53; Start 03/06/20 at 17:45; Stop 03/06/20 at 17:48; Status DC Lorazepam (Ativan Inj) 2 mg 1X ONCE IVP Last administered on 03/06/20at 17:52; Start 03/06/20 at 18:00; Stop 03/06/20 at 18:01; Status DC Haloperidol Lactate (Haldol Inj) 5 mg 1X ONCE IVP ; Start 03/06/20 at 18:00; Stop 03/06/20 at 17:56; Status DC Haloperidol Lactate (Haldol Inj) 5 mg 1X ONCE IVP Last administered on 03/06/20at 17:55; Start 03/06/20 at 18:00; Stop 03/06/20 at 18:01; Status DC Methylprednisolone (Medrol) 32 mg 1X ONCE PO Last administered on 03/06/20at 20:46; Start 03/06/20 at 19:30; Stop 03/06/20 at 19:31; Status DC Ondansetron HCl (Zofran) 4 mg PRN Q8HRS PRN IV NAUSEA/VOMITING; Start 03/06/20 at 21:15; Stop 03/07/20 at 21:14; Status DC Lorazepam (Ativan Inj) 4 mg PRN Q2HRS PRN IVP ANXIETY. Last administered on 03/12/20at 02:00; Start 03/06/20 at 22:00; Stop 03/12/20 at 10:44; Status DC Haloperidol Lactate (Haldol Inj) 5 mg PRN Q6HRS PRN IVP AGITATION Last administered on 03/10/20at 19:13; Start 03/06/20 at 22:00; Stop 03/11/20 at 09:42; Status DC Ondansetron HCl (Zofran) 4 mg PRN Q6HRS PRN IVP NAUSEA/VOMITING Last administered on 03/08/20at 16:23; Start 03/06/20 at 22:00 Olanzapine (ZyPREXA IM) 10 mg PRN Q8HRS PRN IM agitation Last administered on 03/11/20at 21:59; Start 03/06/20 at 22:00 Sodium Chloride 1,000 ml @ 100 mls/hr Q10H IV Last administered on 03/06/20at 22:41; Start 03/06/20 at 22:45; Stop 03/12/20 at 16:20; Status DC Dicyclomine HCl (Bentyl) 10 mg PRN QID PRN PO ABDOMINAL PAIN Last administered on 03/07/20at 19:43; Start 03/07/20 at 19:30; Stop 03/12/20 at 10:44; Status DC Cyclobenzaprine HCl (Flexeril) 10 mg PRN TID PRN PO MUSCLE SPASMS Last admi nistered on 03/09/20at 06:15; Start 03/07/20 at 20:00; Stop 03/10/20 at 18:21; Status DC Oxycodone/ Acetaminophen (Percocet 5/325) 1 tab PRN Q6HRS PRN PO PAIN Last administered on 03/12/20 08:15; Start 03/07/20 at 20:00; Stop 03/12/20 at 10:41; Status DC Nicotine (Nicoderm Cq 21mg) 1 patch DAILY TD Last administered on 03/13/20at 09:10; Start 03/08/20 at 09:00 Nicotine Polacrilex (Nicorette Gum) 1 each PRN Q1HR PRN BC SMOKING CESSATION Last administered on 03/11/20at 13:13; Start 03/08/20 at 09:00 Pantoprazole Sodium (Protonix) 40 mg DAILYAC PO Last administered on 03/13/20 09:10; Start 03/08/20 at 10:15 Lidocaine (Lidoderm) 1 patch DAILY TD Last administered on 03/13/20 09:10; Start 03/09/20 at 09:00 Miscellaneous (Lidoderm Patch Removal) 1 ea QHS MC Last administered on 03/09/20at 21:00; Start 03/08/20 at 21:00 Nitrofurantoin Macrocrystals (Macrobid) 100 mg BID PO Last administered on 03/13/20at 09:09; Start 03/08/20 at 21:00 Barium Sulfate (Polibar Acb) 397 gm 1X ONCE MN ; Start 03/09/20 at 09:30; Stop 03/09/20 at 09:31; Status DC Haloperidol Lactate (Haldol Inj) 10 mg 1X ONCE IM Last administered on 03/09/20at 21:50; Start 03/09/20 at 22:00; Stop 03/09/20 at 22:01; Status DC Diphenhydramine HCl (Benadryl Oral Elixir) 25 mg PRN Q4HRS PRN PO ITCHING Last administered on 03/10/20at 21:14; Start 03/10/20 at 02:30; Stop 03/12/20 at 10:44; Status DC Midazolam HCl (Versed) 2 mg 1X ONCE IV ; Start 03/10/20 at 05:30; Stop 03/10/20 at 05:40; Status DC Ziprasidone (Geodon Im) 10 mg PRN Q2HR PRN IM AGITATION Last administered on 03/10/20at 16:05; Start 03/10/20 at 06:15; Stop 03/11/20 at 09:42; Status DC Olanzapine (ZyPREXA) 5 mg BID PO Last administered on 03/12/20at 08:15; Start 03/11/20 at 10:00; Stop 03/12/20 at 10:44; Status DC Haloperidol Lactate (Haldol Inj) 2 mg PRN Q15MIN PRN IM/IV ANXIETY / AGITATION Last administered on 03/12/20at 02:06; Start 03/11/20 at 21:15; Stop 03/12/20 at 02:06; Status DC Potassium Chloride (Klor-Con) 40 meq 1X ONCE PO Last administered on 03/12/20at 11:36; Start 03/12/20 at 10:45; Stop 03/12/20 at 10:51; Status DC Methadone HCl (Dolophine) 40 mg DAILY PO Last administered on 03/13/20at 09:09; Start 03/12/20 at 10:45 Gabapentin (Neurontin) 600 mg TID PO Last administered on 03/13/20at 09:10; Start 03/12/20 at 10:45 Sertraline HCl (Zoloft) 50 mg DAILY PO Last administered on 03/13/20 09:09; Start 03/12/20 at 10:45 Trazodone HCl (Desyrel) 150 mg QHS PO Last administered on 03/12/20at 23:10; Start 03/12/20 at 21:00 [place] Carbonate (Lithobid) 300 mg BID PO Last administered on 03/13/20 09:10; Start 03/12/20 at 10:45 Tramadol HCl (Ultram) 50 mg PRN Q6HRS PRN PO PAIN Last administered on 03/12/20at 23:16; Start 03/12/20 at 16:45 Vitals/I & O Vital Sign - Last 24 Hours 03/12/20 03/12/20 03/13/20 03/13/20 21:00 21:30 00:09 03:00 Temp 98.3 97.8 98.3 97.8 Pulse 88 88 95 Resp 20 20 18 B/P (MAP) 140/85 (103) 136/81 (99) 148/98 (115) Pulse Ox 99 98 100 O2 Delivery Room Air Room Air Room Air Room Air 03/13/20 03/13/20 03/13/20 07:00 08:00 11:00 Temp 97.8 97.8 97.8 97.8 Pulse 73 74 Resp 18 18 B/P (MAP) 119/78 (92) 122/70 (87) Pulse Ox 92 92 O2 Delivery Room Air Room Air Room Air Intake and Output 03/12/20 03/12/20 03/13/20 15:00 23:00 07:00 Intake Total 250 ml 350 ml 880 ml Output Total 1 ml Balance 250 ml 350 ml 879 ml Justifications for Admission Other Justification MAGALY BOWMAN MD Mar 13, 2020 14:13
--- NOTE | 2020-03-13 16:51 | NUR ---
SW following. Spoke with RN and reviewed chart. Pt remains on a 1:1. Pt stared on Methadone. Spoke with Lynette from [facility] who is working in psychiatric placement for this pt. SW following.
--- NOTE | 2020-03-13 19:33 | PDOC ---
F/U PHYSCH PROG NOTE Subjective: gentleman with acute delirium seen for routine follow-up. Progress is reviewed with nursing staff. No major emotional or behavioral breakdown reported. Upon interview, he appears relatively cooperative and interactive. He is more alert and oriented. Mood is reportedly good. States he is feeling little bit better overall. Oriented to time place and person. He states mood is not very fluctuating. Denies suicidal or homicidal thoughts. Denies auditory or visual hallucinations. No evidence of herlinda or hypomania. Tolerating medications, denies adverse drug reaction. Objective: 14 point review of system is otherwise negative except for as stated above. Vital Signs: Vital Signs Date Time Temp Pulse Resp B/P (MAP) Pulse Ox O2 Delivery O2 Flow Rate FiO2 03/13/20 18:50 98.1 16 121/79 (93) 94 Room Air 98.1 03/13/20 14:43 70 Labs: Laboratory Tests Test 03/13/20 03:05 White Blood Count 11.3 x10^3/uL (4.0-11.0) H Red Blood Count 4.76 x10^6/uL (4.30-5.70) Hemoglobin 13.3 g/dL (13.0-17.5) Hematocrit 40.6 % (39.0-53.0) Mean Corpuscular Volume 85 fL (79-100) Mean Corpuscular Hemoglobin 28 pg (25-35) Mean Corpuscular Hemoglobin Concent 33 g/dL (31-37) Red Cell Distribution Width 15.4 % (11.5-14.5) H Platelet Count 205 x10^3/uL (140-400) Neutrophils (%) (Auto) 31 % (31-73) Lymphocytes (%) (Auto) 18 % (24-48) L Monocytes (%) (Auto) 6 % (0-9) Eosinophils (%) (Auto) 45 % (0-3) H Basophils (%) (Auto) 1 % (0-3) Neutrophils # (Auto) 3.5 x10^3/uL (1.8-7.7) Lymphocytes # (Auto) 2.0 x10^3/uL (1.0-4.8) Monocytes # (Auto) 0.6 x10^3/uL (0.0-1.1) Eosinophils # (Auto) 5.1 x10^3/uL (0.0-0.7) H Basophils # (Auto) 0.1 x10^3/uL (0.0-0.2) Sodium Level 139 mmol/L (136-145) Potassium Level 4.1 mmol/L (3.5-5.1) Chloride Level 103 mmol/L (98-107) Carbon Dioxide Level 28 mmol/L (21-32) Anion Gap 8 (6-14) Blood Urea Nitrogen 21 mg/dL (8-26) Creatinine 1.0 mg/dL (0.7-1.3) Estimated GFR (Cockcroft-Gault) 75.7 BUN/Creatinine Ratio 21 (6-20) H Glucose Level 94 mg/dL (70-99) Calcium Level 8.9 mg/dL (8.5-10.1) Total Bilirubin 0.4 mg/dL (0.2-1.0) Aspartate Amino Transferase (AST) 24 U/L (15-37) Alanine Aminotransferase (ALT) 29 U/L (16-63) Alkaline Phosphatase 111 U/L (46-116) Total Protein 6.5 g/dL (6.4-8.2) Albumin 3.4 g/dL (3.4-5.0) Albumin/Globulin Ratio 1.1 (1.0-1.7) Laboratory Tests 03/13/20 03:05 Laboratory Tests 03/13/20 03:05 Medications: Current Medications Medications (Trade) Dose Ordered Sig/Arabella Start Time Stop Time Status Last Admin Dose Admin Barium Sulfate (Polibar Acb) 397 gm 1X ONCE 03/09/20 09:30 03/09/20 09:31 DC Cyclobenzaprine HCl (Flexeril) 10 mg PRN TID PRN 03/07/20 20:00 03/10/20 18:21 DC 03/09/20 06:15 10 MG Dicyclomine HCl (Bentyl) 10 mg PRN QID PRN 03/07/20 19:30 03/12/20 10:44 DC 03/07/20 19:43 10 MG Diphenhydramine HCl (Benadryl Oral Elixir) 25 mg PRN Q4HRS PRN 03/10/20 02:30 03/12/20 10:44 DC 03/10/20 21:14 25 MG Diphenhydramine HCl (Benadryl) 50 mg 1X ONCE 03/06/20 17:45 03/06/20 17:46 DC Fentanyl Citrate (Fentanyl 2ml Vial) 50 mcg 1X ONCE 03/06/20 17:45 03/06/20 17:48 DC 03/06/20 17:53 50 MCG Gabapentin (Neurontin) 600 mg TID 03/12/20 10:45 03/13/20 14:49 600 MG Haloperidol (Haldol) 5 mg 1X PRN 03/06/20 17:45 Cancel Haloperidol Lactate (Haldol Inj) 2 mg PRN Q15MIN PRN 03/11/20 21:15 03/12/20 02:06 DC 03/12/20 02:06 2 MG Ketorolac Tromethamine (Toradol 30mg Vial) 30 mg STK-MED ONCE 03/06/20 17:05 03/06/20 17:05 DC Lidocaine (Lidoderm) 1 patch DAILY 03/09/20 09:00 03/13/20 09:10 1 PATCH [place] Carbonate (Lithobid) 300 mg BID 03/12/20 10:45 03/13/20 09:10 300 MG Lorazepam (Ativan Inj) 4 mg PRN Q2HRS PRN 03/06/20 22:00 03/12/20 10:44 DC 03/12/20 02:00 4 MG Methadone HCl (Dolophine) 40 mg DAILY 03/12/20 10:45 03/13/20 09:09 40 MG Methylprednisolone (Medrol) 32 mg 1X ONCE 03/06/20 19:30 03/06/20 19:31 DC 03/06/20 20:46 32 MG Metoclopramide HCl (Reglan Vial) 10 mg STK-MED ONCE 03/06/20 17:05 03/06/20 17:05 DC Midazolam HCl (Versed) 2 mg 1X ONCE 03/10/20 05:30 03/10/20 05:40 DC Miscellaneous (Lidoderm Patch Removal) 1 ea QHS 03/08/20 21:00 03/09/20 21:00 1 EA Nicotine (Nicoderm Cq 21mg) 1 patch DAILY 03/08/20 09:00 03/13/20 09:10 1 PATCH Nicotine Polacrilex (Nicorette Gum) 1 each PRN Q1HR PRN 03/08/20 09:00 03/11/20 13:13 1 EACH Nitrofurantoin Macrocrystals (Macrobid) 100 mg BID 03/08/20 21:00 03/13/20 09:09 100 MG Olanzapine (ZyPREXA IM) 10 mg PRN Q8HRS PRN 03/06/20 22:00 03/11/20 21:59 10 MG Olanzapine (ZyPREXA) 5 mg BID 03/11/20 10:00 03/12/20 10:44 DC 03/12/20 08:15 5 MG Ondansetron HCl (Zofran) 4 mg PRN Q6HRS PRN 03/06/20 22:00 03/08/20 16:23 4 MG Oxycodone/ Acetaminophen (Percocet 5/325) 1 tab PRN Q6HRS PRN 03/07/20 20:00 03/12/20 10:41 DC 03/12/20 08:15 1 TAB Pantoprazole Sodium (Protonix) 40 mg DAILYAC 03/08/20 10:15 03/13/20 09:10 40 MG Potassium Chloride (Klor-Con) 40 meq 1X ONCE 03/12/20 10:45 03/12/20 10:51 DC 03/12/20 11:36 40 MEQ Sertraline HCl (Zoloft) 50 mg DAILY 03/12/20 10:45 03/13/20 09:09 50 MG Sodium Chloride 1,000 ml @ 100 mls/hr Q10H 03/06/20 22:45 03/12/20 16:20 DC 03/06/20 22:41 100 MLS/HR Tramadol HCl (Ultram) 50 mg PRN Q6HRS PRN 03/12/20 16:45 03/12/20 23:16 50 MG Trazodone HCl (Desyrel) 150 mg QHS 03/12/20 21:00 03/12/20 23:10 150 MG Ziprasidone (Geodon Im) 10 mg PRN Q2HR PRN 03/10/20 06:15 03/11/20 09:42 DC 03/10/20 16:05 10 MG Physical Exam: Mental Status Exam: gentleman appears older than his stated age Cooperative but distracted Disoriented Denies suicidal or homicidal thoughts presently. Denies auditory or visual hallucinations No abnormal perception noted Mood is improving Affect is improving Insight and judgment impulse control are fair Attention span and concentration fair Recent and remote memory intact Physical Exam: Refer to Physician's note. [employer] SAL[employer]ERSON: No focal deficit MSK: No EPS, TDK, or abnormal involuntary movements Diagnosis: Acute delirium, likely multifactorial, hyperactive Major depressive disorder, recurrent, severe without psychotic features. Generalized anxiety disorder. PTSD. Assessment: He is a well-educated gentleman with history of multiple psychiatric comorbidities who was on methadone treatment admitted with intractable back pain and suicidality. His suicidality likely correlates with his pain severity. Adamantly denies any suicidal thoughts when not in pain. However, he is no intentions to . Intent is reportedly 0/10. 03/09/2020. Patient appear lot more disturbed, disoriented and having behavioral issues. 03/12/2020: He continues to be disoriented with altered mental status. Talking irrelevantly reacting to internal stimuli. Recently methadone and lithium are restarted 03/13/2020: He is improving with respect to his mental status. Mood is good, interactive. Plan: Continue medications as prescribed. Continue hospitalization for safety and crisis stabilization. Psychoeducation provided. Supportive psychotherapy provided. Continue outpatient medications including psychotropics as is. Risk, benefits, alternatives of the treatment are discussed. Adverse drug reaction of the medications are also discusse CHRISTO MENSAH MD Mar 13, 2020 19:33
[2020-03-13] MEDS: PATCH REMOVAL. MC SCH (21:00)
[2020-03-13] MEDS: traZODone 100 MG TABLET. PO SCH (21:06)
--- NOTE | 2020-03-13 21:12 | NUR ---
Patient' lidoderm patch removed from back.
[2020-03-14 03:00] VITALS: BP 119/72
--- NOTE | 2020-03-14 05:53 | NUR ---
Patient has been telling this content writer that he is on Methadone 45mg three times a day, this content writer looks over many previious admissions and pain clinic treatments, and noted 15 mg of the methadone every 8 hours, one admission, he was noted to have been on [id number] every 8 hours, and was found unresponsive, appeared to have been given narcan (10/13/2019). Patient replies that he doesn't remember, and continues to say he takes 45mg three times a day. 'the patient has been asking for additional doses, and doesn't know why he isn't getting his full 45mg, this is why the chart of previous admissions and therapies was looked in to. to monitor.
[2020-03-14 06:03] LABS: ALBUMIN 3.4 g/dL (3.4-5.0); CALCIUM 9.1 mg/dL (8.5-10.1); CREATININE 1.3 mg/dL (0.7-1.3); GFR 55.9; POTASSIUM 4.1 mmol/L (3.5-5.1); TOTAL BILIRUBIN 0.4 mg/dL (0.2-1.0); TOTAL PROTEIN 6.9 g/dL (6.4-8.2)
[2020-03-14 06:06] LABS: BASO # 0.1 x10^3/uL (0.0-0.2); BASO % 1 % (0-3); EOS % 42 % (0-3); HEMATOCRIT 39.8 % (39.0-53.0); HEMOGLOBIN 13.1 g/dL (13.0-17.5); LYMPH # 2.3 x10^3/uL (1.0-4.8); LYMPH % 19 % (24-48); MEAN CORPUSCULAR HEMOGLOBIN 28 pg (25-35); MEAN CORPUSCULAR HGB CONC 33 g/dL (31-37); MEAN CORPUSCULAR VOLUME 85 fL (79-100); MONO # 0.7 x10^3/uL (0.0-1.1); MONO % 6 % (0-9); NEUT # 4.1 x10^3/uL (1.8-7.7); NEUT % 34 % (31-73); PLATELET COUNT 222 x10^3/uL (140-400); RED BLOOD COUNT 4.68 x10^6/uL (4.30-5.70); WHITE BLOOD COUNT 12.2 x10^3/uL (4.0-11.0)
[2020-03-14 07:00] VITALS: BP 122/80
[2020-03-14] MEDS: NITROFURANTOIN MONOHYD/M-CRYST 100 MG CAPSULE. PO SCH (08:33)
[2020-03-14] MEDS: SERTRALINE 50 MG TABLET. PO SCH (08:33)
[2020-03-14] MEDS: GABAPENTIN 300 MG CAPSULE. PO SCH ×2 (08:33→14:00)
[2020-03-14] MEDS: PANTOPRAZOLE 40 MG TABLET.DR. PO SCH (08:33)
[2020-03-14] MEDS: LITHIUM CARBONATE ER 300 MG TABLET.ER PO SCH (08:33)
[2020-03-14] MEDS: METHADONE 10 MG TABLET. PO SCH (08:33)
[2020-03-14] MEDS: NICOTINE 21MG PATCH. TD SCH (08:34)
[2020-03-14] MEDS: LIDOCAINE (700MG/PATCH) PATCH. TD SCH (08:34)
--- NOTE | 2020-03-14 10:08 | PDOC ---
[employer] PROGRESS NOTE Date of Service DOS: DATE: 03/14/20 TIME: 10:06 Chief Complaint Chief Complaint A/P: Flank pain wall thickening of the visualized distal esophagus, could be due to esophagitis, cannot accurately exclude underlying mass. There is small hiatal hernia. Mild wall thickening of the distal thoracic esophagus could reflect esophagitis in setting of a moderate sized hiatal hernia.on UGI 03/10 MAJOR DEPRESSION WITH SI Tobacco abuse NO MICROHEMATURIA Advanced multilevel lumbar spondylosis with rightward curvature. Suicidal ideation E coli UTI - resistant to cipro and levaquin, will change to cefdinir from nitrofurantoin given his Cr 1.3. Add pyridium plan consulted psych Medically stable for discharge 37 min pt exam, chart review, > 50% of time spent with exam, chart review, pt care coordination 64-year-old male well on high dose methadone FOR BACK PAIN . 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 presents with abdominal pain. We are concerned he could have kidney stone. We tried to scan him in the ER, but he could not sit still. Then he explained to the nurses that he was suicidal. He got a little agitated. We had to call security. Now we have given some Ativan and Haldol in the ER, he is calm NOW admit the patient. PAST MEDICAL HISTORY: Anxiety, depression, PTSD, chronic pain, narcotic dependence. I suspect he may have done heroin in the past, but I am not clear on that. Bone graft, left liver surgery, current tobacco abuse. ALLERGIES: PENICILLIN AND SULFA. FAMILY HISTORY: Coronary disease. SOCIAL HISTORY: He smokes and drinks. 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 03/10 agitated overnight did temporarily require hours of 4 pt restraints 03/11 out of restraints, tachy ekg no afib. 03/12: He is able to discuss discharge from inpatient psychiatry 02/03/2020 [facility] on 300 mg lithium twice daily 600 mg gabapentin 3 times daily, trazodone 150 mg nightly, Zoloft 50 mg daily, hydroxyzine 25 mg 3 times daily as needed and methadone 75 mg p.o. daily. He has cut down his methadone dosing as his last fill was on 02/15/2020. 03/13: He is feeling more clear headed, still with suicidal thoughts. Asking for pain medication less often. Did not sleep well last night, asking to sleep now. Medically stable for discharge to psych More awake today, he is completely alert, denies SI. He does note with previous UTIs he has gotten off medications and had similar incidents. He is worried about his appointment with Dr. Butt [phone] at [facility] for methadone follow up. Have d/w psychiatric liaison social scientist he will be safe with the discharge plan with a radiology interventional physician from [facility] to his home residence with 10 days of cefdinir and to continue his home medications. Vitals/I&O Vitals/I&O: Vital Signs Date Time Temp Pulse Resp B/P (MAP) Pulse Ox O2 Delivery O2 Flow Rate FiO2 03/14/20 08:00 Room Air 03/14/20 07:00 98.0 76 16 122/80 (94) 93 98.0 I & O 03/13/20 03/13/20 03/14/20 15:00 23:00 07:00 Intake Total 660 ml 780 ml 600 ml Balance 660 ml 780 ml 600 ml Physical Exam Physical Exam: IN 4 PT RESTRAINTS General: Alert, Oriented X3, Cooperative, No acute distress, Other (frustrated) Heart: Regular rate, Normal S1, Other (tachy) Lungs: Clear Abdomen: Normal bowel sounds, Soft, Other (flank pain) Extremities: No clubbing, No cyanosis, No edema Skin: No rashes Labs Labs: Laboratory Tests Test 03/14/20 04:25 White Blood Count 12.2 x10^3/uL (4.0-11.0) Red Blood Count 4.68 x10^6/uL (4.30-5.70) Hemoglobin 13.1 g/dL (13.0-17.5) Hematocrit 39.8 % (39.0-53.0) Mean Corpuscular Volume 85 fL (79-100) Mean Corpuscular Hemoglobin 28 pg (25-35) Mean Corpuscular Hemoglobin Concent 33 g/dL (31-37) Red Cell Distribution Width 15.0 % (11.5-14.5) Platelet Count 222 x10^3/uL (140-400) Neutrophils (%) (Auto) 34 % (31-73) Lymphocytes (%) (Auto) 19 % (24-48) Monocytes (%) (Auto) 6 % (0-9) Eosinophils (%) (Auto) 42 % (0-3) Basophils (%) (Auto) 1 % (0-3) Neutrophils # (Auto) 4.1 x10^3/uL (1.8-7.7) Lymphocytes # (Auto) 2.3 x10^3/uL (1.0-4.8) Monocytes # (Auto) 0.7 x10^3/uL (0.0-1.1) Eosinophils # (Auto) 5.0 x10^3/uL (0.0-0.7) Basophils # (Auto) 0.1 x10^3/uL (0.0-0.2) Sodium Level 140 mmol/L (136-145) Potassium Level 4.1 mmol/L (3.5-5.1) Chloride Level 101 mmol/L (98-107) Carbon Dioxide Level 32 mmol/L (21-32) Anion Gap 7 (6-14) Blood Urea Nitrogen 23 mg/dL (8-26) Creatinine 1.3 mg/dL (0.7-1.3) Estimated GFR (Cockcroft-Gault) 55.9 BUN/Creatinine Ratio 18 (6-20) Glucose Level 110 mg/dL (70-99) Calcium Level 9.1 mg/dL (8.5-10.1) Total Bilirubin 0.4 mg/dL (0.2-1.0) Aspartate Amino Transf (AST/SGOT) 19 U/L (15-37) Alanine Aminotransferase (ALT/SGPT) 24 U/L (16-63) Alkaline Phosphatase 105 U/L (46-116) Total Protein 6.9 g/dL (6.4-8.2) Albumin 3.4 g/dL (3.4-5.0) Albumin/Globulin Ratio 1.0 (1.0-1.7) Assessment and Plan Assessmemt and Plan Problems Medical Problems: (1) Degenerative disc disease, lumbar Status: Acute (2) Intractable back pain Status: Acute (3) Suicidal behavior Status: Acute Comment Review of Relevant I have reviewed the following items laura (where applicable) has been applied. Justifications for Admission Other Justification CARMEN LIANG MD Mar 14, 2020 10:08
[2020-03-14] MEDS ORDERED: CIPROFLOXACIN HCL 250 MG TABLET. PO SCH (10:30)
[2020-03-14] MEDS ORDERED: CEFDINIR 300 MG CAPSULE PO SCH (10:30)
[2020-03-14] MEDS ORDERED: PHENAZOPYRIDINE 200 MG TABLET. PO PRN (10:30)
--- NOTE | 2020-03-14 10:55 | PDOC ---
Date of Service: DATE: 03/14/20 TIME: 10:53 Objective: Objective: Per 1:1 sitter - ate breakfast well and asked for more. Vital Signs: Vital Signs Date Time Temp Pulse Resp B/P (MAP) Pulse Ox O2 Delivery O2 Flow Rate FiO2 03/14/20 08:00 Room Air 03/14/20 07:00 98.0 76 16 122/80 (94) 93 98.0 Labs: Laboratory Tests Test 03/14/20 04:25 White Blood Count 12.2 x10^3/uL Red Blood Count 4.68 x10^6/uL Hemoglobin 13.1 g/dL Hematocrit 39.8 % Mean Corpuscular Volume 85 fL Mean Corpuscular Hemoglobin 28 pg Mean Corpuscular Hemoglobin Concent 33 g/dL Red Cell Distribution Width 15.0 % Platelet Count 222 x10^3/uL Neutrophils (%) (Auto) 34 % Lymphocytes (%) (Auto) 19 % Monocytes (%) (Auto) 6 % Eosinophils (%) (Auto) 42 % Basophils (%) (Auto) 1 % Neutrophils # (Auto) 4.1 x10^3/uL Lymphocytes # (Auto) 2.3 x10^3/uL Monocytes # (Auto) 0.7 x10^3/uL Eosinophils # (Auto) 5.0 x10^3/uL Basophils # (Auto) 0.1 x10^3/uL Sodium Level 140 mmol/L Potassium Level 4.1 mmol/L Chloride Level 101 mmol/L Carbon Dioxide Level 32 mmol/L Anion Gap 7 Blood Urea Nitrogen 23 mg/dL Creatinine 1.3 mg/dL Estimated GFR (Cockcroft-Gault) 55.9 BUN/Creatinine Ratio 18 Glucose Level 110 mg/dL Calcium Level 9.1 mg/dL Total Bilirubin 0.4 mg/dL Aspartate Amino Transf (AST/SGOT) 19 U/L Alanine Aminotransferase (ALT/SGPT) 24 U/L Alkaline Phosphatase 105 U/L Total Protein 6.9 g/dL Albumin 3.4 g/dL Albumin/Globulin Ratio 1.0 PE: GEN: NAD LUNGS: room air HEART: RR per chart ABD: non-distended NEURO/PSYCH: sleeping, not awakened A/P: Chronic pain, depression, UTI GERD, hiatal hernia - on PPI, no dysphagia -- Continue same per GI. Justicifation of Admission Dx: Justifications for Admission: Justification of Admission Dx: Yes ANA RODRIGUEZ Mar 14, 2020 10:55
[2020-03-14 11:00] VITALS: BP 121/82
--- NOTE | 2020-03-14 11:53 | NUR ---
DARLEEN following. Spoke with RN and reviewed chart. Pt ready for discharge today to [facility] as there are no beds at [facility]. DARLEEN notified Janice with [facility] who will work on transfer today. RN notified. DARLEEN following. Addendum: 03/14/20 at 1400 by RICHARD MOREJON Pt to discharge home today per Janice with [facility]. Pt was able to safety plan with [facility] and Angelito ALBERTO CM. Pt does not have SI/HI and will be able to get Methadone on discharge per [facility]. No further DARLEEN needs at this time.
--- NOTE | 2020-03-14 12:57 | PDOC3 ---
Discharge Summary Visit Information Date of Admission: Mar 06, 2020 Date of Discharge: Mar 14, 2020 Admitting Diagnosis: Acute encephalopathy Final Diagnosis Problems Medical Problems: (1) Degenerative disc disease, lumbar Status: Acute (2) Intractable back pain Status: Acute (3) Suicidal behavior Status: Acute Brief Hospital Course Allergies Allergies Coded Allergies Type Severity Reaction Last Updated Verified Penicillins Allergy Severe "I think I " 03/06/20 Yes Sulfa (Sulfonamide Antibiotics) Allergy Severe "I think I " 03/06/20 Yes Vital Signs Vital Signs Date Time Temp Pulse Resp B/P (MAP) Pulse Ox O2 Delivery O2 Flow Rate FiO2 03/14/20 11:00 97.8 82 18 121/82 (95) 99 Room Air 97.8 Lab Results Laboratory Tests Test 03/13/20 03:05 03/14/20 04:25 White Blood Count 11.3 x10^3/uL (4.0-11.0) 12.2 x10^3/uL (4.0-11.0) Red Blood Count 4.76 x10^6/uL (4.30-5.70) 4.68 x10^6/uL (4.30-5.70) Hemoglobin 13.3 g/dL (13.0-17.5) 13.1 g/dL (13.0-17.5) Hematocrit 40.6 % (39.0-53.0) 39.8 % (39.0-53.0) Mean Corpuscular Volume 85 fL (79-100) 85 fL (79-100) Mean Corpuscular Hemoglobin 28 pg (25-35) 28 pg (25-35) Mean Corpuscular Hemoglobin Concent 33 g/dL (31-37) 33 g/dL (31-37) Red Cell Distribution Width 15.4 % (11.5-14.5) 15.0 % (11.5-14.5) Platelet Count 205 x10^3/uL (140-400) 222 x10^3/uL (140-400) Neutrophils (%) (Auto) 31 % (31-73) 34 % (31-73) Lymphocytes (%) (Auto) 18 % (24-48) 19 % (24-48) Monocytes (%) (Auto) 6 % (0-9) 6 % (0-9) Eosinophils (%) (Auto) 45 % (0-3) 42 % (0-3) Basophils (%) (Auto) 1 % (0-3) 1 % (0-3) Neutrophils # (Auto) 3.5 x10^3/uL (1.8-7.7) 4.1 x10^3/uL (1.8-7.7) Lymphocytes # (Auto) 2.0 x10^3/uL (1.0-4.8) 2.3 x10^3/uL (1.0-4.8) Monocytes # (Auto) 0.6 x10^3/uL (0.0-1.1) 0.7 x10^3/uL (0.0-1.1) Eosinophils # (Auto) 5.1 x10^3/uL (0.0-0.7) 5.0 x10^3/uL (0.0-0.7) Basophils # (Auto) 0.1 x10^3/uL (0.0-0.2) 0.1 x10^3/uL (0.0-0.2) Sodium Level 139 mmol/L (136-145) 140 mmol/L (136-145) Potassium Level 4.1 mmol/L (3.5-5.1) 4.1 mmol/L (3.5-5.1) Chloride Level 103 mmol/L (98-107) 101 mmol/L (98-107) Carbon Dioxide Level 28 mmol/L (21-32) 32 mmol/L (21-32) Anion Gap 8 (6-14) 7 (6-14) Blood Urea Nitrogen 21 mg/dL (8-26) 23 mg/dL (8-26) Creatinine 1.0 mg/dL (0.7-1.3) 1.3 mg/dL (0.7-1.3) Estimated GFR (Cockcroft-Gault) 75.7 55.9 BUN/Creatinine Ratio 21 (6-20) 18 (6-20) Glucose Level 94 mg/dL (70-99) 110 mg/dL (70-99) Calcium Level 8.9 mg/dL (8.5-10.1) 9.1 mg/dL (8.5-10.1) Total Bilirubin 0.4 mg/dL (0.2-1.0) 0.4 mg/dL (0.2-1.0) Aspartate Amino Transf (AST/SGOT) 24 U/L (15-37) 19 U/L (15-37) Alanine Aminotransferase (ALT/SGPT) 29 U/L (16-63) 24 U/L (16-63) Alkaline Phosphatase 111 U/L (46-116) 105 U/L (46-116) Total Protein 6.5 g/dL (6.4-8.2) 6.9 g/dL (6.4-8.2) Albumin 3.4 g/dL (3.4-5.0) 3.4 g/dL (3.4-5.0) Albumin/Globulin Ratio 1.1 (1.0-1.7) 1.0 (1.0-1.7) Laboratory Tests Test 03/14/20 04:25 White Blood Count 12.2 x10^3/uL (4.0-11.0) Red Blood Count 4.68 x10^6/uL (4.30-5.70) Hemoglobin 13.1 g/dL (13.0-17.5) Hematocrit 39.8 % (39.0-53.0) Mean Corpuscular Volume 85 fL (79-100) Mean Corpuscular Hemoglobin 28 pg (25-35) Mean Corpuscular Hemoglobin Concent 33 g/dL (31-37) Red Cell Distribution Width 15.0 % (11.5-14.5) Platelet Count 222 x10^3/uL (140-400) Neutrophils (%) (Auto) 34 % (31-73) Lymphocytes (%) (Auto) 19 % (24-48) Monocytes (%) (Auto) 6 % (0-9) Eosinophils (%) (Auto) 42 % (0-3) Basophils (%) (Auto) 1 % (0-3) Neutrophils # (Auto) 4.1 x10^3/uL (1.8-7.7) Lymphocytes # (Auto) 2.3 x10^3/uL (1.0-4.8) Monocytes # (Auto) 0.7 x10^3/uL (0.0-1.1) Eosinophils # (Auto) 5.0 x10^3/uL (0.0-0.7) Basophils # (Auto) 0.1 x10^3/uL (0.0-0.2) Sodium Level 140 mmol/L (136-145) Potassium Level 4.1 mmol/L (3.5-5.1) Chloride Level 101 mmol/L (98-107) Carbon Dioxide Level 32 mmol/L (21-32) Anion Gap 7 (6-14) Blood Urea Nitrogen 23 mg/dL (8-26) Creatinine 1.3 mg/dL (0.7-1.3) Estimated GFR (Cockcroft-Gault) 55.9 BUN/Creatinine Ratio 18 (6-20) Glucose Level 110 mg/dL (70-99) Calcium Level 9.1 mg/dL (8.5-10.1) Total Bilirubin 0.4 mg/dL (0.2-1.0) Aspartate Amino Transf (AST/SGOT) 19 U/L (15-37) Alanine Aminotransferase (ALT/SGPT) 24 U/L (16-63) Alkaline Phosphatase 105 U/L (46-116) Total Protein 6.9 g/dL (6.4-8.2) Albumin 3.4 g/dL (3.4-5.0) Albumin/Globulin Ratio 1.0 (1.0-1.7) Brief Hospital Course Mr Wong is a 64 yo M past medical history significant for anxiety depression, PTSD, chronic pain, h/o opioid use disorder documented with recent discharged from [facility] (for anxiety/depression), presents to the ED with complaints of dysuria and right flank pain for the past 2 days. Very confused and combative. Told nurses he was suicidal 03/10 agitated overnight did temporarily require hours of 4 pt restraints 03/11 out of restraints, tachy ekg no afib. ECHO: The left ventricle is normal size. The left ventricular systolic function is low normal. The Ejection Fraction is estimated at 50%. Septal motion consistent with conduction abnormality. There is borderline concentric left ventricular hypertrophy. Significant calcification in the wall of the left atrium but no masses seen. Doppler and Color Flow revealed no significant aortic regurgitation. There is no significant aortic valvular stenosis. Doppler and Color Flow revealed no mitral valve regurgitation noted. Doppler and Color Flow revealed trace tricuspid regurgitation with an estimated PAP of 23 mmHg. 03/12: He is able to discuss discharge from inpatient psychiatry 02/03/2020 [facility] on 300 mg lithium twice daily 600 mg gabapentin 3 times daily, trazodone 150 mg nightly, Zoloft 50 mg daily, hydroxyzine 25 mg 3 times daily as needed and methadone 75 mg p.o. daily. He has cut down his methadone dosing as his last fill was on 02/15/2020. 03/13: He is feeling more clear headed, still with suicidal thoughts. Asking for pain medication less often. Did not sleep well last night, asking to sleep now. Medically stable for discharge to psych He is able to tell me today that he attended [employer] to study electrical engineering, began working for the [employer] in 1985, traveled extensively throughout the world was x3 and has a daughter in [place] from whom he is estranged. More awake today, he is completely alert, denies SI. He does note with previous UTIs he has gotten off medications and had similar incidents. He is worried about his appointment with Dr. Butt [phone] at [facility] for methadone follow up, he will get 1 week refill from them. Have d/w psychiatric liaison social media director he will be safe with the discharge plan with a psychologist engineering from [facility] to his home residence with 10 days of cefdinir and to continue his home medications through [facility] to increase compliance. I have contacted [facility] addiction medicine services and was notified he actually missed an appointment on 03/08/2020. I have informed him that he missed this appointment because he was inpatient at [facility]. Consults: GI, psychiatry, cardiology Problem list: Flank pain Hiatal hernia Esophagitis Anxiety depression, PTSD Chronic pain ?h/o opioid use disorder MAJOR DEPRESSION WITH SI Tobacco abuse Advanced multilevel lumbar spondylosis with rightward curvature. Suicidal ideation E coli UTI - resistant to cipro and levaquin, will change to cefdinir from nitrofurantoin given his Cr 1.3. Add pyridium Greater than 30 minutes spent on d/c home Discharge Information Condition at Discharge: Improved Follow Up: Weeks Disposition/Orders: D/C to Home Scheduled Cefdinir (Cefdinir) 300 Mg Capsule, 300 MG PO BID for E. coli UTI for 14 Days, #28 Prescribed by: CARMEN LIANG MD on 03/14/20 1423 Gabapentin (Gabapentin) 300 Mg Capsule, 600 MG PO TID for Chronic back pain for 30 Days, #180 Prescribed by: CARMEN LIANG MD on 03/14/20 1423 Marty Carbonate (Marty Carbonate) 300 Mg Tablet.er, 300 MG PO BID for PTSD for 30 Days, #60 Prescribed by: CARMEN LIANG MD on 03/14/20 1423 Methadone Hcl (Methadone Hcl) 10 Mg Tablet, 20 MG PO TID for Chronic back pain for 7 Days, #42 Prescribed by: CARMEN LIANG MD on 03/14/20 1423 Pantoprazole Sodium (Pantoprazole Sodium ) 40 Mg Tablet.dr, 40 MG PO DAILYAC for Gastritis for 30 Days, #30 Prescribed by: CARMEN LIANG MD on 03/14/20 1423 Sertraline Hcl (Sertraline Hcl) 50 Mg Tablet, 50 MG PO DAILY for PTSD/Depression for 30 Days, #30 Prescribed by: CARMEN LIANG MD on 03/14/20 1423 Trazodone Hcl (Trazodone Hcl) 100 Mg Tablet, 150 MG PO QHS for Depression for 30 Days, #45 Prescribed by: CARMEN LIANG MD on 03/14/20 1423 Scheduled PRN Phenazopyridine Hcl (Phenazopyridine Hcl) 200 Mg Tablet, 200 MG PO PRN TID PRN for URINARY PAIN for 3 Days, #9 Prescribed by: CARMEN LIANG MD on 03/14/20 1423 Justicifation of Admission Dx: Justifications for Admission: Justification of Admission Dx: Yes CARMEN LIANG MD Mar 14, 2020 12:57
[2020-03-14] MEDS ORDERED: GABA300C18 PO (14:23)
[2020-03-14] MEDS ORDERED: LITH300T30 PO (14:23)
[2020-03-14] MEDS ORDERED: PHEN-444 PO (14:23)
[2020-03-14] MEDS ORDERED: CEFD300C PO (14:23)
[2020-03-14] MEDS ORDERED: TRAZ-123 PO (14:23)
[2020-03-14] MEDS ORDERED: METH10TA2 PO (14:23)
[2020-03-14] MEDS ORDERED: PANT40TA77 PO (14:23)
[2020-03-14] MEDS ORDERED: SERT50TA8 PO (14:23)
--- NOTE | 2020-03-14 14:23 | PDOC ---
PROGRESS NOTES Date of Service DATE: 03/14/20 TIME: 14:21 Subjective Subjective No new complaints. Objective Objective Vital Signs Date Time Temp Pulse Resp B/P (MAP) Pulse Ox O2 Delivery O2 Flow Rate FiO2 03/14/20 11:00 97.8 82 18 121/82 (95) 99 Room Air 97.8 03/11/20 22:30 99.0 Intake and Output 03/14/20 07:00 Intake Total 2040 ml Balance 2040 ml Intake Oral 2040 ml # Voids 10 Physical Exam Physical Exam He is walking better this AM and almost stood up straight. Assessment Assessment Problems Medical Problems: (1) Degenerative disc disease, lumbar Status: Acute (2) Intractable back pain Status: Acute (3) Suicidal behavior Status: Acute Plan Plan of Care To SNF when arrangements are completed. Comment Review of Relevant I have reviewed the following items laura (where applicable) has been applied. Labs Laboratory Tests Test 03/13/20 03:05 03/14/20 04:25 White Blood Count 11.3 x10^3/uL (4.0-11.0) 12.2 x10^3/uL (4.0-11.0) Red Blood Count 4.76 x10^6/uL (4.30-5.70) 4.68 x10^6/uL (4.30-5.70) Hemoglobin 13.3 g/dL (13.0-17.5) 13.1 g/dL (13.0-17.5) Hematocrit 40.6 % (39.0-53.0) 39.8 % (39.0-53.0) Mean Corpuscular Volume 85 fL (79-100) 85 fL (79-100) Mean Corpuscular Hemoglobin 28 pg (25-35) 28 pg (25-35) Mean Corpuscular Hemoglobin Concent 33 g/dL (31-37) 33 g/dL (31-37) Red Cell Distribution Width 15.4 % (11.5-14.5) 15.0 % (11.5-14.5) Platelet Count 205 x10^3/uL (140-400) 222 x10^3/uL (140-400) Neutrophils (%) (Auto) 31 % (31-73) 34 % (31-73) Lymphocytes (%) (Auto) 18 % (24-48) 19 % (24-48) Monocytes (%) (Auto) 6 % (0-9) 6 % (0-9) Eosinophils (%) (Auto) 45 % (0-3) 42 % (0-3) Basophils (%) (Auto) 1 % (0-3) 1 % (0-3) Neutrophils # (Auto) 3.5 x10^3/uL (1.8-7.7) 4.1 x10^3/uL (1.8-7.7) Lymphocytes # (Auto) 2.0 x10^3/uL (1.0-4.8) 2.3 x10^3/uL (1.0-4.8) Monocytes # (Auto) 0.6 x10^3/uL (0.0-1.1) 0.7 x10^3/uL (0.0-1.1) Eosinophils # (Auto) 5.1 x10^3/uL (0.0-0.7) 5.0 x10^3/uL (0.0-0.7) Basophils # (Auto) 0.1 x10^3/uL (0.0-0.2) 0.1 x10^3/uL (0.0-0.2) Sodium Level 139 mmol/L (136-145) 140 mmol/L (136-145) Potassium Level 4.1 mmol/L (3.5-5.1) 4.1 mmol/L (3.5-5.1) Chloride Level 103 mmol/L (98-107) 101 mmol/L (98-107) Carbon Dioxide Level 28 mmol/L (21-32) 32 mmol/L (21-32) Anion Gap 8 (6-14) 7 (6-14) Blood Urea Nitrogen 21 mg/dL (8-26) 23 mg/dL (8-26) Creatinine 1.0 mg/dL (0.7-1.3) 1.3 mg/dL (0.7-1.3) Estimated GFR (Cockcroft-Gault) 75.7 55.9 BUN/Creatinine Ratio 21 (6-20) 18 (6-20) Glucose Level 94 mg/dL (70-99) 110 mg/dL (70-99) Calcium Level 8.9 mg/dL (8.5-10.1) 9.1 mg/dL (8.5-10.1) Total Bilirubin 0.4 mg/dL (0.2-1.0) 0.4 mg/dL (0.2-1.0) Aspartate Amino Transf (AST/SGOT) 24 U/L (15-37) 19 U/L (15-37) Alanine Aminotransferase (ALT/SGPT) 29 U/L (16-63) 24 U/L (16-63) Alkaline Phosphatase 111 U/L (46-116) 105 U/L (46-116) Total Protein 6.5 g/dL (6.4-8.2) 6.9 g/dL (6.4-8.2) Albumin 3.4 g/dL (3.4-5.0) 3.4 g/dL (3.4-5.0) Albumin/Globulin Ratio 1.1 (1.0-1.7) 1.0 (1.0-1.7) Laboratory Tests Test 03/14/20 04:25 White Blood Count 12.2 x10^3/uL (4.0-11.0) Red Blood Count 4.68 x10^6/uL (4.30-5.70) Hemoglobin 13.1 g/dL (13.0-17.5) Hematocrit 39.8 % (39.0-53.0) Mean Corpuscular Volume 85 fL (79-100) Mean Corpuscular Hemoglobin 28 pg (25-35) Mean Corpuscular Hemoglobin Concent 33 g/dL (31-37) Red Cell Distribution Width 15.0 % (11.5-14.5) Platelet Count 222 x10^3/uL (140-400) Neutrophils (%) (Auto) 34 % (31-73) Lymphocytes (%) (Auto) 19 % (24-48) Monocytes (%) (Auto) 6 % (0-9) Eosinophils (%) (Auto) 42 % (0-3) Basophils (%) (Auto) 1 % (0-3) Neutrophils # (Auto) 4.1 x10^3/uL (1.8-7.7) Lymphocytes # (Auto) 2.3 x10^3/uL (1.0-4.8) Monocytes # (Auto) 0.7 x10^3/uL (0.0-1.1) Eosinophils # (Auto) 5.0 x10^3/uL (0.0-0.7) Basophils # (Auto) 0.1 x10^3/uL (0.0-0.2) Sodium Level 140 mmol/L (136-145) Potassium Level 4.1 mmol/L (3.5-5.1) Chloride Level 101 mmol/L (98-107) Carbon Dioxide Level 32 mmol/L (21-32) Anion Gap 7 (6-14) Blood Urea Nitrogen 23 mg/dL (8-26) Creatinine 1.3 mg/dL (0.7-1.3) Estimated GFR (Cockcroft-Gault) 55.9 BUN/Creatinine Ratio 18 (6-20) Glucose Level 110 mg/dL (70-99) Calcium Level 9.1 mg/dL (8.5-10.1) Total Bilirubin 0.4 mg/dL (0.2-1.0) Aspartate Amino Transf (AST/SGOT) 19 U/L (15-37) Alanine Aminotransferase (ALT/SGPT) 24 U/L (16-63) Alkaline Phosphatase 105 U/L (46-116) Total Protein 6.9 g/dL (6.4-8.2) Albumin 3.4 g/dL (3.4-5.0) Albumin/Globulin Ratio 1.0 (1.0-1.7) Microbiology 03/06/20 Urine Culture - Final, Complete 03/06/20 Antimicrobic Susceptibility - Final, Complete Medications Current Medications Ketorolac Tromethamine (Toradol 30mg Vial) 30 mg 1X ONCE IVP Last administered on 03/06/20at 17:07; Start 03/06/20 at 17:00; Stop 03/06/20 at 17:04; Status DC Metoclopramide HCl (Reglan Vial) 10 mg 1X ONCE IVP Last administered on 03/06/20at 17:07; Start 03/06/20 at 17:00; Stop 03/06/20 at 17:04; Status DC Sodium Chloride 1,000 ml @ 1,000 mls/hr 1X ONCE IV Last administered on 03/06/20at 17:07; Start 03/06/20 at 17:00; Stop 03/06/20 at 17:59; Status DC Metoclopramide HCl (Reglan Vial) 10 mg STK-MED ONCE .ROUTE ; Start 03/06/20 at 17:05; Stop 03/06/20 at 17:05; Status DC Ketorolac Tromethamine (Toradol 30mg Vial) 30 mg STK-MED ONCE .ROUTE ; Start 03/06/20 at 17:05; Stop 03/06/20 at 17:05; Status DC Haloperidol Lactate (Haldol Inj) 5 mg STK-MED ONCE .ROUTE ; Start 03/06/20 at 17:32; Stop 03/06/20 at 17:32; Status DC Lorazepam (Ativan Inj) 2 mg STK-MED ONCE .ROUTE ; Start 03/06/20 at 17:34; Stop 03/06/20 at 17:35; Status DC Diphenhydramine HCl (Benadryl) 50 mg 1X ONCE IVP ; Start 03/06/20 at 17:45; Stop 03/06/20 at 17:46; Status DC Haloperidol (Haldol) 5 mg 1X PRN PO AGITATION; Start 03/06/20 at 17:45; Status Cancel Lorazepam (Ativan Inj) 2 mg 1X ONCE IVP Last administered on 03/06/20at 17:51; Start 03/06/20 at 17:45; Stop 03/06/20 at 17:48; Status DC Fentanyl Citrate (Fentanyl 2ml Vial) 50 mcg 1X ONCE IVP Last administered on 03/06/20at 17:53; Start 03/06/20 at 17:45; Stop 03/06/20 at 17:48; Status DC Lorazepam (Ativan Inj) 2 mg 1X ONCE IVP Last administered on 03/06/20at 17:52; Start 03/06/20 at 18:00; Stop 03/06/20 at 18:01; Status DC Haloperidol Lactate (Haldol Inj) 5 mg 1X ONCE IVP ; Start 03/06/20 at 18:00; Stop 03/06/20 at 17:56; Status DC Haloperidol Lactate (Haldol Inj) 5 mg 1X ONCE IVP Last administered on at 17:55; Start 03/06/20 at 18:00; Stop 03/06/20 at 18:01; Status DC Methylprednisolone (Medrol) 32 mg 1X ONCE PO Last administered on 03/06/20at 20:46; Start 03/06/20 at 19:30; Stop 03/06/20 at 19:31; Status DC Ondansetron HCl (Zofran) 4 mg PRN Q8HRS PRN IV NAUSEA/VOMITING; Start 03/06/20 at 21:15; Stop 03/07/20 at 21:14; Status DC Lorazepam (Ativan Inj) 4 mg PRN Q2HRS PRN IVP ANXIETY. Last administered on 03/12/20at 02:00; Start 03/06/20 at 22:00; Stop 03/12/20 at 10:44; Status DC Haloperidol Lactate (Haldol Inj) 5 mg PRN Q6HRS PRN IVP AGITATION Last administered on 03/10/20at 19:13; Start 03/06/20 at 22:00; Stop 03/11/20 at 09:42; Status DC Ondansetron HCl (Zofran) 4 mg PRN Q6HRS PRN IVP NAUSEA/VOMITING Last administered on 03/08/20at 16:23; Start 03/06/20 at 22:00 Olanzapine (ZyPREXA IM) 10 mg PRN Q8HRS PRN IM agitation Last administered on 03/11/20at 21:59; Start 03/06/20 at 22:00 Sodium Chloride 1,000 ml @ 100 mls/hr Q10H IV Last administered on 03/06/20at 22:41; Start 03/06/20 at 22:45; Stop 03/12/20 at 16:20; Status DC Dicyclomine HCl (Bentyl) 10 mg PRN QID PRN PO ABDOMINAL PAIN Last administered on 03/07/20at 19:43; Start 03/07/20 at 19:30; Stop 03/12/20 at 10:44; Status DC Cyclobenzaprine HCl (Flexeril) 10 mg PRN TID PRN PO MUSCLE SPASMS Last administered on 03/09/20at 06:15; Start 03/07/20 at 20:00; Stop 03/10/20 at 18:21; Status DC Oxycodone/ Acetaminophen (Percocet 5/325) 1 tab PRN Q6HRS PRN PO PAIN Last administered on 03/12/20at 08:15; Start 03/07/20 at 20:00; Stop 03/12/20 at 10: 41; Status DC Nicotine (Nicoderm Cq 21mg) 1 patch DAILY TD Last administered on 03/14/20at 08:34; Start 03/08/20 at 09:00 Nicotine Polacrilex (Nicorette Gum) 1 each PRN Q1HR PRN BC SMOKING CESSATION Last administered on 03/11/20at 13:13; Start 03/08/20 at 09:00 Pantoprazole Sodium (Protonix) 40 mg DAILYAC PO Last administered on 03/14/20at 08:33; Start 03/08/20 at 10:15 Lidocaine (Lidoderm) 1 patch DAILY TD Last administered on 03/14/20 08:34; Start 03/09/20 at 09:00 Miscellaneous (Lidoderm Patch Removal) 1 ea QHS MC Last administered on 03/09/20at 21:00; Start 03/08/20 at 21:00 Nitrofurantoin Macrocrystals (Macrobid) 100 mg BID PO Last administered on 03/14/20at 08:33; Start 03/08/20 at 21:00; Stop 03/14/20 at 10:18; Status DC Barium Sulfate (Polibar Acb) 397 gm 1X ONCE AK ; Start 03/09/20 at 09:30; Stop 03/09/20 at 09:31; Status DC Haloperidol Lactate (Haldol Inj) 10 mg 1X ONCE IM Last administered on 03/09/20at 21:50; Start 03/09/20 at 22:00; Stop 03/09/20 at 22:01; Status DC Diphenhydramine HCl (Benadryl Oral Elixir) 25 mg PRN Q4HRS PRN PO ITCHING Last administered on 03/10/20at 21:14; Start 03/10/20 at 02:30; Stop 03/12/20 at 10:44; Status DC Midazolam HCl (Versed) 2 mg 1X ONCE IV ; Start 03/10/20 at 05:30; Stop 03/10/20 at 05:40; Status DC Ziprasidone (Geodon Im) 10 mg PRN Q2HR PRN IM AGITATION Last administered on 03/10/20at 16:05; Start 03/10/20 at 06:15; Stop 03/11/20 at 09:42; Status DC Olanzapine (ZyPREXA) 5 mg BID PO Last administered on 03/12/20at 08:15; Start 03/11/20 at 10:00; Stop 03/12/20 at 10:44; Status DC Haloperidol Lactate (Haldol Inj) 2 mg PRN Q15MIN PRN IM/IV ANXIETY / AGITATION Last administered on 03/12/20at 02:06; Start 03/11/20 at 21:15; Stop 03/12/20 at 02:06; Status DC Potassium Chloride (Klor-Con) 40 meq 1X ONCE PO Last administered on 03/12/20at 11:36; Start 03/12/20 at 10:45; Stop 03/12/20 at 10:51; Status DC Methadone HCl (Dolophine) 40 mg DAILY PO Last administered on 03/14/20at 08:33; Start 03/12/20 at 10:45 Gabapentin (Neurontin) 600 mg TID PO Last administered on 03/14/20at 14:00; Start 03/12/20 at 10:45 Sertraline HCl (Zoloft) 50 mg DAILY PO Last administered on 03/14/20at 08:33; Start 03/12/20 at 10:45 Trazodone HCl (Desyrel) 150 mg QHS PO Last administered on 03/13/20at 21:06; Start 03/12/20 at 21:00 Bowler Carbonate (Lithobid) 300 mg BID PO Last administered on 03/14/20at 08:33; Start 03/12/20 at 10:45 Tramadol HCl (Ultram) 50 mg PRN Q6HRS PRN PO PAIN Last administered on 03/12/20at 23:16; Start 03/12/20 at 16:45 Ciprofloxacin (Cipro) 500 mg BID PO ; Start 03/14/20 at 10:30; Stop 03/14/20 at 10:20; Status DC Cefdinir (Omnicef) 300 mg BID PO Last administered on 03/14/20at 10:51; Start 03/14/20 at 10:30 Phenazopyridine HCl (Pyridium) 200 mg PRN TID PRN PO URINARY PAIN; Start 03/14/20 at 10:30 Vitals/I & O Vital Sign - Last 24 Hours 9/103/13/20 03/13/20 03/13/20 14:43 18:50 20:25 22:58 Temp 97.7 98.1 97.5 97.7 98.1 97.5 Pulse 70 84 Resp 18 16 18 B/P (MAP) 124/72 (89) 121/79 (93) 120/86 (97) Pulse Ox 93 94 93 O2 Delivery Room Air Room Air Room Air Room Air 03/14/20 03/14/20 03/14/20 03/14/20 03:00 07:00 08:00 11:00 Temp 97.5 98.0 97.8 97.5 98.0 97.8 Pulse 89 76 82 Resp 20 16 18 B/P (MAP) 119/72 (88) 122/80 (94) 121/82 (95) Pulse Ox 92 93 99 O2 Delivery Room Air Room Air Room Air Room Air Intake and Output 03/13/20 03/13/20 03/14/20 15:00 23:00 07:00 Intake Total 660 ml 780 ml 600 ml Balance 660 ml 780 ml 600 ml Justifications for Admission Other Justification MAGALY BOWMAN MD Mar 14, 2020 14:23
[2020-03-14 15:00] VITALS: BP 144/98
--- NOTE | 2020-03-14 15:15 | NUR ---
Discharge Note: [facility] [address] [place] [address] Discharge instructions and discharge home medications reviewed with Patient and a copy given. All questions have been answered and understanding verbalized. The following instructions and handouts were given: F/U with PCP within one week. Discontinued lines and drains: Peripheral IV intact. Patient discharged to Home or Self Care with [facility] via [facility] with [facility].
== END 2020-03-14 15:15 | disposition home or self-care (01) | DRG 552 ==
LOC: ER 15:20 → 4 NORTH 19:07 → 6 SOUTH 03-11 19:21
PROVIDERS: ADMIT Internal Medicine; ATTEND Internal Medicine
DX: M51.36 Other intervertebral disc degeneration, lumbar region (principal); R45.851 Suicidal ideations; N39.0 Urinary tract infection, site not specified; F33.2 Major depressive disorder, recurrent severe without psychotic features; F11.20 Opioid dependence, uncomplicated; Z16.23 Resistance to quinolones and fluoroquinolones; G93.40 Encephalopathy, unspecified; F05 Delirium due to known physiological condition; K21.0 Gastro-esophageal reflux disease with esophagitis; M47.816 Spondylosis without myelopathy or radiculopathy, lumbar region; F43.10 Post-traumatic stress disorder, unspecified; G89.29 Other chronic pain; F17.210 Nicotine dependence, cigarettes, uncomplicated; F41.8 Other specified anxiety disorders; F41.1 Generalized anxiety disorder; M41.9 Scoliosis, unspecified; K44.9 Diaphragmatic hernia without obstruction or gangrene; I25.10 Atherosclerotic heart disease of native coronary artery without angina pectoris; N20.0 Calculus of kidney; Z51.5 Encounter for palliative care; Z20.828 Contact with and (suspected) exposure to other viral communicable diseases; M81.0 Age-related osteoporosis without current pathological fracture; R13.10 Dysphagia, unspecified; B96.20 Unspecified Escherichia coli [E. coli] as the cause of diseases classified elsewhere; H26.9 Unspecified cataract; I51.7 Cardiomegaly; Z79.899 Other long term (current) drug therapy; Z88.0 Allergy status to penicillin; Z88.2 Allergy status to sulfonamides; Z91.19 Patient's noncompliance with other medical treatment and regimen; Z87.440 Personal history of urinary (tract) infections; Z86.73 Personal history of transient ischemic attack (TIA), and cerebral infarction without residual deficits; Z82.49 Family history of ischemic heart disease and other diseases of the circulatory system
CPT/HCPCS: 36415; 72110; 74176; 74220; 80048; 80053; 80307; 81001; 83735; 84436; 85007; 85025; 87077; 87086; 87186; 87426; 93005; 93306; 96361; 96374; 96375; 99285; G0480; J1630; J1885; J2060; J2405; J2765; J3010; J3486; J3490; J7030; J7509; 97110-GP; 97116-GP; 97530-GP; 97535-GO; G0378; U0003-CS